=== PATIENT | female | born 1935 | race Caucasian/White ===

== ENCOUNTER → 2016-07-19 | Outpatient (CLI) | payer BC ==
[~2016-07-19] MED LIST: ASPI81TA28 PO; CALCTAB7 PO; CARV6.252 PO; CMD5 PO; LPT/40 PO; MULT-413 PO; MULT-845 PO; SYN100 PO; WARF5TAB7 PO
--- NOTE | 2016-07-19 16:36 | MAMMOGRAPHY REPORT ---
BILATERAL DIGITAL SCREENING MAMMOGRAM WITH CAD: 07/19/2016 CLINICAL HISTORY: Routine screening examination. TECHNIQUE: Bilateral CC and MLO views were obtained. Current study was also evaluated with a Comput er Aided Detection (CAD) system. COMPARISON: Comparison is made to exams dated: 07/14/2014 mammogram, 07/16/2015 mammogram, 07/01/2011 mammogram, 07/12/2013 mammogram, and 06/30/2010 mammogram - [facility]. BREAST COMPOSITION: The tissue of both breasts is heterogeneously dense, which may obscure small ma sses. FINDINGS: There are diffuse bilateral coarse calcifications, more confluent in the left breast. Devante nt punctate microcalcifications are also grouped in each upper outer quadrant, stable compared to pr ior exams. No obvious new mass, architectural distortion or cluster of suspicious microcalcificatio ns is seen. IMPRESSION: ACR BI-RADS CATEGORY 1: NEGATIVE There is no mammographic evidence of malignancy. A 1 year screening mammogram is recommended. The p atient will receive written notification of the results. Approximately 10% of breast cancers are not detected with mammography. A negative mammographic repor t should not delay biopsy if a clinically suggestive mass is present. Renee Bernard M.D. ay/:07/19/2016 16:21:22 Epic Kaleidoscope Analyst: Ade JAFFE)(Moises), [facility] letter sent: Normal 1/2 BI-RADS Code: ACR BI-RADS Category 1: Negative
== END | disposition home or self-care (01) ==
LOC: C.MAMM 11:17
PROVIDERS: ATTEND Internal Medicine
DX: Z12.31 Encounter for screening mammogram for malignant neoplasm of breast (principal)

== ENCOUNTER → 2017-02-02 | Outpatient (CLI) | payer BC ==
[~2017-02-02] MED LIST changes: -MULT-413 PO
[2017-02-02 10:57] LABS: BASO % 0.2 %; BASO ABS # 0.01 K/uL (0-0.2); COMPLETE YES; EOS % 4.4 %; HEMATOCRIT 45.4 % (37-47); IG% 0.3 %; LYMPH % 23.2 %; LYMPH ABS # 1.52 K/uL (1.2-3.4); MEAN CELL VOLUME 93.2 fL (80-100); MEAN CORPUSCULAR HGB CONC 33.3 g/dl (32-36); MEAN PLATELET VOLUME 9.8 fL (7.4-10.4); MONO % 8.9 %; PLATELET COUNT 260 K/uL (130-400); RED BLOOD COUNT 4.87 M/uL (4.2-5.4); WHITE BLOOD COUNT 6.54 K/uL (4.8-10.8)
[2017-02-02 11:21] LABS: ALT/SGPT 30 U/L (12-78); AST/SGOT 23 U/L (15-37); BLOOD UREA NITROGEN 16 mg/dl (7-18); BUN/CREATININE RATIO 17.4 (10-20); CARBON DIOXIDE 31 mmol/L (21-32); CHLORIDE 107 mmol/L (98-107); CHOLESTEROL 136 mg/dl (0-200); CREATININE 0.89 mg/dl (0.60-1.20); GLUCOSE 100 mg/dl (70-99); POTASSIUM 3.9 mmol/L (3.5-5.1); SODIUM 140 mmol/L (136-145)
[2017-02-02 11:32] LABS: ALB/GLOB RATIO 1.1 (0.9-2); ALKALINE PHOSPHATASE 53 U/L (45-117); CHOLESTEROL/HDL RATIO 1.9; HDL CHOLESTEROL 71 mg/dl; LDL CHOLESTEROL CALCULATED 52 mg/dl; TRIGLYCERIDES 67 mg/dl (0-150); VERY LOW DENSITY LIPOPROT CALC 13 mg/dl
--- NOTE | 2017-02-09 13:06 | CODING QUERY MEDICAL NECESSITY ---
SUPPORTING DIAGNOSIS NEEDED A supporting diagnosis is required for the test/procedure performed on this patient in order for us to be reimbursed by the patient's insurance. Please provide a supporting diagnosis for the following test/procedure listed below next to the test name along with your signature. *If there is no additional diagnosis for this patient that would support the following test/procedure please document that below next to the test/procedure. Test(s)/Procedure(s) that require a supporting diagnosis: * VITAMIN D, 25- HYDROXY DIAGNOSIS: Provider Signature: Date: Thank you Bridgett Mitchell [employer] Once completed, please kindly fax back to [phone] For questions please call [phone]
== END | disposition home or self-care (01) ==
LOC: C.LABBC 07:52
PROVIDERS: ATTEND Internal Medicine
DX: M48.04 Spinal stenosis, thoracic region (principal); E55.9 Vitamin D deficiency, unspecified

== ENCOUNTER 2017-03-31 07:11 | Emergency (ER) | payer BC ==
[~2017-03-31] VITALS: Ht 170.2 cm; Wt 71.3 kg
[2017-03-31 07:18] VITALS: TEMP 36.6; Ht 170.2 cm; Wt 71.3 kg
[2017-03-31] MEDS ORDERED: CMD5 PO (07:50)
[2017-03-31] MEDS ORDERED: LEVO100T PO (07:50)
--- NOTE | 2017-03-31 07:58 | EMERGENCY ROOM VISIT NOTE ---
History Report prepared by Todd: My Salazar Under the Supervision of: Dr. Toro Wilcox M.D. First contact with patient: 07:34 Chief Complaint: ABDOMINAL PAIN Stated Complaint: ABD PAIN Nursing Triage Summary: pt c/o abd pain started 3 weeks ago has been getting bilat lower abd pain History of Present Illness The patient is an 81 year old female who presents to the Emergency Room with complaints of persistent lower abdominal pain that began three weeks ago. She currently rates her discomfort as a 7/10 in severity. The patient states that her pain is worsened with eating, noting that over the last few days she has not been eating. She reports normal bowel movements and urination. The patient denies the pain worsening pain with positions. She denies any fever, chills, or vaginal discharge. The patient reports a surgical history of a complete hysterectomy, appendectomy, and cholecystectomy. She states that she saw her PCP yesterday for her recent abdominal pain and states that her PCP wanted her to have a CT scan. The patient states that her PCP needed to get authorization from her insurance to have the CT scan. She states that she was called by her PCP last evening and told to come to the emergency department. The patient denies having any other testing done. She states that she is currently on Warfarin, noting that her last INR level was 2.3. The patient reports a history of Hodgkin's Lymphoma 15 years ago. Source of History: patient Onset: three weeks ago Position: abdomen (lower) Symptom Intensity: 7/10 Timing: other (persistent) Modifying Factors (Worsening): eating Associated Symptoms: No fevers, No chills Review of Systems All systems have been listed, reviewed, and are negative other than those previously mentioned. Please see Additional Medical History Sheet. 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 Surgical Problems: (1) H/O: hysterectomy (2) Hx of cholecystectomy (3) S/P appendectomy Family History Cancer Heart disease Hypertension Social History Smoking Status: Never Smoker Alcohol Use: none Marital Status: Housing Status: lives alone Occupation Status: retired Current/Historical Medications Scheduled Aspirin (Aspirin Ec), 81 MG PO 3XWK Atorvastatin (Lipitor), 40 MG PO DAILY Calcium Carbonate-Vitamin D W/ (Caltrate 600 Plus), 1 TAB PO BID Carvedilol (Coreg), 3.125 MG PO BID Ciprofloxacin Hcl (Cipro), 1 TAB PO BID Levothyroxine Sodium (Synthroid), 100 MCG PO DAILY Metronidazole (Flagyl), 500 MG PO BID Multiple Vitamins W/ Minerals (Centrum Silver Adult 50+), 1 TAB PO DAILY Warfarin Sod (Jantoven), 2.5 MG PO WK Warfarin Sod (Coumadin), 5 MG PO 6XWK Allergies Coded Allergies: No Known Allergies (Verified , 03/31/17) Physical Exam Vital Signs Date Time Temp Pulse Resp B/P (MAP) Pulse Ox O2 Delivery O2 Flow Rate FiO2 03/31/17 11:30 68 18 124/76 95 Room Air 03/31/17 10:31 70 19 137/74 95 Room Air 03/31/17 08:58 63 15 136/63 95 Room Air 03/31/17 07:18 36.6 83 18 118/72 98 Room Air Physical Exam GENERAL: Patient awake, alert, oriented x 3. Patient follows commands. Patient does not appear toxic. Patient is adequately hydrated and well- nourished. SKIN: Slightly erythematous triangular shaped area on right lower quadrant, no pallor, cyanosis or rash HEENT: Normal head, pupils equal, reactive to light and accommodation. LUNGS: Clear to auscultation. No wheezes, no rales, no rhonchi. HEART: No murmurs. No gallops. No rubs ABDOMEN: Generalized tenderness to the suprapubic area, no rebound, no guarding. Slightly erythematous triangular shaped area on right lower quadrant. No masses, no rebound, no hepatomegaly or splenomegaly. EXTREMITIES: No signs of trauma. No pedal or pretibial edema. No calf or thigh tenderness. NEUROLOGIC: Cranial nerves II-XII within normal limits. No gross motor sensory function deficits. Medical Decision & Procedures ER Provider Diagnostic Interpretation: CT results are interpretations by the radiologist and per my review. CT SCAN OF THE ABDOMEN AND PELVIS WITH IV CONTRAST CLINICAL HISTORY: Lower abdominal pain. COMPARISON STUDY: Abdominal CT dated 04/26/2016. TECHNIQUE: Following the IV administration of 94 cc of Optiray 320, CT scan of the abdomen and pelvis is performed from the lung bases to the proximal femora. Images are reviewed in the axial, sagittal, and coronal planes. IV contrast was administered without complication. A dose lowering technique was utilized adhering to the principles of ALARA. CT DOSE: 710.26 mGycm FINDINGS: Lung bases: The heart is top normal in size and there is trace pericardial effusion. Trace pleural effusions are identified. Atelectasis versus scarring is seen at the lung bases. No airspace consolidation is identified typical for pneumonia. Numerous calcifications are present within the breasts. A tiny hiatal hernia is observed. Liver: The contrast-enhanced liver is normal in size, contour, and attenuation. There is no intrahepatic biliary ductal dilatation. The hepatic veins and portal veins are patent. Scattered subcentimeter hepatic hypodensities likely represent cysts but are too small for definitive characterization. These are unchanged from previous. Gallbladder: Surgically absent. Spleen: Normal in size and attenuation. Scattered subcentimeter splenic hypodensities are of indeterminant but doubtful significance. These are unchanged from 04/26/2016. Pancreas: Moderately atrophic and grossly unremarkable. Adrenal glands: Unremarkable. Kidneys: The contrast enhanced kidneys are atrophic and without hydronephrosis. There are bilateral extrarenal pelvises. The kidneys enhance symmetrically. Abdominal vasculature: The abdominal aorta is normal in course and caliber noting advanced atherosclerotic calcification. An infrarenal IVC filter is in place. Bowel: There is moderate sigmoid diverticulosis. There is mild pancolonic inflammation and trace fluid seen adjacent to the sigmoid colon in the pelvis consistent with mild acute diverticulitis. No evidence of abscess is seen. There is no bowel obstruction. The appendix is not identified and reported surgically absent. Peritoneum: There is no intraperitoneal free air or abdominal ascites. Lymphadenopathy: None. Pelvic viscera: The bladder is normal as visualized. The uterus is surgically absent. No adnexal lesion is seen. Skeletal structures: The skeletal structures are osteopenic. There is moderate lumbosacral spondylosis and scoliosis. A large posterior discussed by complex is seen at L3-L4. A 3 cm benign-appearing sclerotic focus in the left iliac wing is unchanged. No lytic or blastic lesions are seen. IMPRESSION: 1. There is moderate sigmoid diverticulosis with evidence of mild acute sigmoid diverticulitis. No intraperitoneal free air is seen and there is no evidence of abscess. 2. Trace pleural effusions. 3. Additional findings as above. Electronically signed by: Jean Claude Tello M.D. 03/31/2017 10:49 AM Dictated Date/Time: 03/31/2017 10:43 AM Laboratory Results 03/31/17 07:30 Red Blood Count 4.99, Mean Corpuscular Volume 92.4, Mean Corpuscular Hemoglobin 31.5, Mean Corpuscular Hemoglobin Concent 34.1, Mean Platelet Volume 9.4, Neutrophils (%) (Auto) 66.0, Lymphocytes (%) (Auto) 22.3, Monocytes (%) (Auto) 8.5, Eosinophils (%) (Auto) 3.0, Basophils (%) (Auto) 0.1, Neutrophils # (Auto) 5.03, Lymphocytes # (Auto) 1.70, Monocytes # (Auto) 0.65, Eosinophils # (Auto) 0.23, Basophils # (Auto) 0.01 03/31/17 07:30 Test 03/31/17 07:30 03/31/17 09:10 White Blood Count 7.63 K/uL (4.8-10.8) Red Blood Count 4.99 M/uL (4.2-5.4) Hemoglobin 15.7 g/dL (12.0-16.0) Hematocrit 46.1 % (37-47) Mean Corpuscular Volume 92.4 fL (80-100) Mean Corpuscular Hemoglobin 31.5 pg (25-34) Mean Corpuscular Hemoglobin Concent 34.1 g/dl (32-36) Platelet Count 239 K/uL (130-400) Mean Platelet Volume 9.4 fL (7.4-10.4) Neutrophils (%) (Auto) 66.0 % Lymphocytes (%) (Auto) 22.3 % Monocytes (%) (Auto) 8.5 % Eosinophils (%) (Auto) 3.0 % Basophils (%) (Auto) 0.1 % Neutrophils # (Auto) 5.03 K/uL (1.4-6.5) Lymphocytes # (Auto) 1.70 K/uL (1.2-3.4) Monocytes # (Auto) 0.65 K/uL (0.11-0.59) Eosinophils # (Auto) 0.23 K/uL (0-0.5) Basophils # (Auto) 0.01 K/uL (0-0.2) RDW Standard Deviation 45.3 fL (36.4-46.3) RDW Coefficient of Variation 13.4 % (11.5-14.5) Immature Granulocyte % (Auto) 0.1 % Immature Granulocyte # (Auto) 0.01 K/uL (0.00-0.02) Prothrombin Time 30.5 SECONDS (9.0-12.0) Prothromb Time International Ratio 2.7 (0.9-1.1) Activated Partial Thromboplast Time 44.0 SECONDS (21.0-31.0) Partial Thromboplastin Ratio 1.7 Anion Gap 7.0 mmol/L (3-11) Est Creatinine Clear Calc Drug Dose 49.6 ml/min Estimated GFR () 71.9 Estimated GFR (Non- 62.1 BUN/Creatinine Ratio 13.0 (10-20) Calcium Level 9.9 mg/dl (8.5-10.1) Total Bilirubin 2.4 mg/dl (0.2-1) Aspartate Amino Transf (AST/SGOT) 17 U/L (15-37) Alanine Aminotransferase (ALT/SGPT) 23 U/L (12-78) Alkaline Phosphatase 61 U/L (45-117) Total Protein 7.9 gm/dl (6.4-8.2) Albumin 3.9 gm/dl (3.4-5.0) Globulin 4.0 gm/dl (2.5-4.0) Albumin/Globulin Ratio 1.0 (0.9-2) Urine Color YELLOW Urine Appearance CLOUDY (CLEAR) Urine pH 6.5 (4.5-7.5) Urine Specific [place] 1.013 (1.000-1.030) Urine Protein NEG (NEG) Urine Glucose (UA) NEG (NEG) Urine Ketones NEG (NEG) Urine Occult Blood 1+ (NEG) Urine Nitrite POS (NEG) Urine Bilirubin NEG (NEG) Urine Urobilinogen NEG (NEG) Urine Leukocyte Esterase LARGE (NEG) Urine WBC (Auto) >30 /hpf (0-5) Urine RBC (Auto) 0-4 /hpf (0-4) Urine Hyaline Casts (Auto) 5-10 /lpf (0-5) Urine Epithelial Cells (Auto) 0-5 /lpf (0-5) Urine Bacteria (Auto) 4+ (NEG) Laboratory results as stated above per my review. ED Course 0734: Past medical records reviewed. The patient was evaluated in room B2. A complete history and physical examination was performed. 1109: I reevaluated the patient and she is resting comfortably. I discussed the exam findings with her and I discussed the treatment plan. She verbalized complete understanding and agreement. She is ready to go home. Medical Decision Nurses notes reviewed. Medical history sheet reviewed. Differential diagnosis includes but is not limited to: constipation, irritable bowel syndrome, neoplastic disease, diverticulitis, bowel obstruction. Multiple labs, urinalysis and CT were obtained. Please see above. The patient appears to have a urinary tract infection which may be the major reason for her pain. The patient also appears to have diverticulitis. In light of the above I will treat her with Flagyl and ciprofloxacin. The patient was encouraged to follow-up with her family physician within the next 7 days. She is to return here sooner if she is feeling worse. The patient was offered pain medication but declined. Medication Reconcilliation Current Medication List: was personally reviewed by me Blood Pressure Screening Patient's blood pressure: Normal blood pressure Blood pressure disposition: Did not require urgent referral Impression Primary Impression: Urinary tract infection Additional Impression: Diverticulitis Scribe Attestation The scribe's documentation has been prepared under my direction and personally reviewed by me in its entirety. I confirm that the note above accurately reflects all work, treatment, procedures, and medical decision making performed by me. Departure Information Dispostion Home / Self-Care Prescriptions Ciprofloxacin Hcl (CIPRO) 500 Mg Tab 1 TAB PO BID for 10 Days, #20 TAB Prov: Toro Wilcox M.D. 03/31/17 Metronidazole (Flagyl) 500 Mg Tab 500 MG PO BID, #20 TAB Prov: Toro Wilcox M.D. 03/31/17 Referrals Jason Spangler M.D. (PCP) Forms Call Back Authorization, HOME CARE DOCUMENTATION FORM, IMPORTANT VISIT INFORMATION Patient Instructions Diverticulitis Dc, ED Infec Bladder Female Ch, [facility] Additional Instructions 500 mg of ciprofloxacin twice a day for 10 days. 500 mg of Flagyl twice a day for 10 days. Drink extra fluids. Follow-up with your family physician within the next 7 days. Return here sooner if your symptoms are getting worse. Problem Qualifiers
[2017-03-31 08:03] LABS: BASO % 0.1 %; BASO ABS # 0.01 K/uL (0-0.2); COMPLETE YES; HEMATOCRIT 46.1 % (37-47); IG% 0.1 %; LYMPH % 22.3 %; MEAN CELL VOLUME 92.4 fL (80-100); MEAN CORPUSCULAR HEMOGLOBIN 31.5 pg (25-34); MEAN CORPUSCULAR HGB CONC 34.1 g/dl (32-36); MEAN PLATELET VOLUME 9.4 fL (7.4-10.4); MONO % 8.5 %; PLATELET COUNT 239 K/uL (130-400); RED BLOOD COUNT 4.99 M/uL (4.2-5.4); WHITE BLOOD COUNT 7.63 K/uL (4.8-10.8)
[2017-03-31 08:08] LABS: INR 2.7 (0.9-1.1); PARTIAL THROMBOPLASTIN RATIO 1.7; PROTHROMBIN TIME (PATIENT) 30.5 SECONDS (9.0-12.0)
[2017-03-31 08:17] LABS: CALCIUM 9.9 mg/dl (8.5-10.1); CREATININE 0.88 mg/dl (0.60-1.20); POTASSIUM 3.7 mmol/L (3.5-5.1)
[2017-03-31] MEDS ORDERED: OPTIRAY 320 IV PRN (08:30)
[2017-03-31 09:22] LABS: URINE APPEARANCE CLOUDY (CLEAR); URINE BILIRUBIN NEG (NEG); URINE COLOR YELLOW; URINE EPITHELIAL CELL AUTO 0-5 /lpf (0-5); URINE NITRITE POS (NEG); URINE PH 6.5 (4.5-7.5); URINE SPECIFIC GRAVITY 1.013 (1.000-1.030); UROBILINOGEN NEG (NEG); ZZUR CULT IF INDIC CLEAN CATCH YES
[2017-03-31 09:23] LABS: MANUAL MICROSCOPIC REQUIRED? NO; REVIEW REQ? NO
--- NOTE | 2017-03-31 10:50 | DIAGNOSTIC IMAGING REPORT ---
CT SCAN OF THE ABDOMEN AND PELVIS WITH IV CONTRAST CLINICAL HISTORY: Lower abdominal pain. COMPARISON STUDY: Abdominal CT dated 04/26/2016. TECHNIQUE: Following the IV administration of 94 cc of Optiray 320, CT scan of the abdomen and pelvis is performed from the lung bases to the proximal femora. Images are reviewed in the axial, sagittal, and coronal planes. IV contrast was administered without complication. A dose lowering technique was utilized adhering to the principles of ALARA. CT DOSE: 710.26 mGycm FINDINGS: Lung bases: The heart is top normal in size and there is trace pericardial effusion. Trace pleural effusions are identified. Atelectasis versus scarring is seen at the lung bases. No airspace consolidation is identified typical for pneumonia. Numerous calcifications are present within the breasts. A tiny hiatal hernia is observed. Liver: The contrast-enhanced liver is normal in size, contour, and attenuation. There is no intrahepatic biliary ductal dilatation. The hepatic veins and portal veins are patent. Scattered subcentimeter hepatic hypodensities likely represent cysts but are too small for definitive characterization. These are unchanged from previous. Gallbladder: Surgically absent. Spleen: Normal in size and attenuation. Scattered subcentimeter splenic hypodensities are of indeterminant but doubtful significance. These are unchanged from 04/26/2016. Pancreas: Moderately atrophic and grossly unremarkable. Adrenal glands: Unremarkable. Kidneys: The contrast enhanced kidneys are atrophic and without hydronephrosis. There are bilateral extrarenal pelvises. The kidneys enhance symmetrically. Abdominal vasculature: The abdominal aorta is normal in course and caliber noting advanced atherosclerotic calcification. An infrarenal IVC filter is in place. Bowel: There is moderate sigmoid diverticulosis. There is mild pancolonic inflammation and trace fluid seen adjacent to the sigmoid colon in the pelvis consistent with mild acute diverticulitis. No evidence of abscess is seen. There is no bowel obstruction. The appendix is not identified and reported surgically absent. Peritoneum: There is no intraperitoneal free air or abdominal ascites. Lymphadenopathy: None. Pelvic viscera: The bladder is normal as visualized. The uterus is surgically absent. No adnexal lesion is seen. Skeletal structures: The skeletal structures are osteopenic. There is moderate lumbosacral spondylosis and scoliosis. A large posterior discussed by complex is seen at L3-L4. A 3 cm benign-appearing sclerotic focus in the left iliac wing is unchanged. No lytic or blastic lesions are seen. IMPRESSION: 1. There is moderate sigmoid diverticulosis with evidence of mild acute sigmoid diverticulitis. No intraperitoneal free air is seen and there is no evidence of abscess. 2. Trace pleural effusions. 3. Additional findings as above. Electronically signed by: Jean Claude Tello M.D. 03/31/2017 10:49 AM Dictated Date/Time: 03/31/2017 10:43 AM
[2017-03-31] MEDS ORDERED: CIPR-255 PO (11:14)
[2017-03-31] MEDS ORDERED: METR-163 PO (11:14)
[2017-03-31 11:30] VITALS: BP 124/76; PULSE 68; O2SAT 95
== END 2017-03-31 11:40 | disposition home or self-care (01) ==
LOC: C.EDB 07:12
DX: N39.0 Urinary tract infection, site not specified (principal); K57.32 Diverticulitis of large intestine without perforation or abscess without bleeding; K57.30 Diverticulosis of large intestine without perforation or abscess without bleeding; E11.9 Type 2 diabetes mellitus without complications; I10 Essential (primary) hypertension; E03.9 Hypothyroidism, unspecified; E78.5 Hyperlipidemia, unspecified; I71.4 Abdominal aortic aneurysm, without rupture; I25.10 Atherosclerotic heart disease of native coronary artery without angina pectoris; Z79.82 Long term (current) use of aspirin; Z79.01 Long term (current) use of anticoagulants; Z90.710 Acquired absence of both cervix and uterus; Z90.89 Acquired absence of other organs; Z90.49 Acquired absence of other specified parts of digestive tract; Z85.71 Personal history of Hodgkin lymphoma; Z86.711 Personal history of pulmonary embolism; Z82.49 Family history of ischemic heart disease and other diseases of the circulatory system

== ENCOUNTER → 2017-07-20 | Outpatient (CLI) | payer BC ==
[~2017-07-20] MED LIST changes: +LEVO100T PO; -SYN100 PO
--- NOTE | 2017-07-20 15:19 | MAMMOGRAPHY REPORT ---
BILATERAL DIGITAL SCREENING MAMMOGRAM TOMOSYNTHESIS WITH CAD: 07/20/2017 CLINICAL HISTORY: Routine screening. Patient has no complaints. TECHNIQUE: Breast tomosynthesis in addition to standard 2D mammography was performed. Current study was also evaluated with a Computer Aided Detection (CAD) system. COMPARISON: Comparison is made to exams dated: 07/19/2016 mammogram, 07/16/2015 mammogram, 07/14/2014 m ammogram, 07/12/2013 mammogram, 07/10/2012 mammogram, and 07/01/2011 mammogram - [facility] enter. BREAST COMPOSITION: The tissue of both breasts is heterogeneously dense, which may obscure small mas ses. FINDINGS: No suspicious masses, calcifications, or areas of architectural distortion are noted in ei ther breast. There has been no significant interval change compared to prior exams. Scattered bilater al benign-appearing calcifications are not significantly changed. A linear scar marker denotes a sca r on the right superior breast. IMPRESSION: ACR BI-RADS CATEGORY 2: BENIGN There is no mammographic evidence of malignancy. A 1 year screening mammogram is recommended. The pa tient will receive written notification of the results. Approximately 10% of breast cancers are not detected with mammography. A negative mammographic report should not delay biopsy if a clinically suggestive mass is present. Tianna Jones M.D. /:07/20/2017 12:39:18 [employer]mat Cdl Driver: Ange Curran RT(R)(M), [facility] letter sent: Normal 1/2 BI-RADS Code: ACR BI-RADS Category 2: Benign
== END | disposition home or self-care (01) ==
LOC: C.MAMM 10:28
PROVIDERS: ATTEND Internal Medicine
DX: Z12.31 Encounter for screening mammogram for malignant neoplasm of breast (principal)

== ENCOUNTER 2020-10-04 19:18 | Observation (INO) ==
--- NOTE | 2020-10-04 19:57 | Emergency Department Note ---
History of Present Illness General Chief complaint: Confusion Stated complaint: CONFUSION Time Seen by Provider: 10/04/20 19:30 Source: patient Mode of arrival: ambulatory Limitations: no limitations History of Present Illness Provider complaint: difficulty speaking, confused, uncoordinated yesterday Onset (ago): day(s) 1 This is an 85-year-old female presents the emergency department with concern for events yesterday. She states yesterday she became aware in the morning that she could not speak, cannot remember how to perform simple tasks such as using a spoon or opening the cabinets, was slightly dizzy, and had a left-sided headache. Patient states because she could not speak and could not remember how to use certain daily items she could not call for help or contact her daughter, she does live alone. Patient does take blood thinners due to history of recurrent blood clots. She has had prior traumatic intracranial hemorrhage status post surgery. She denies any recent fever/chills, or other recent illness. No other recent change in medications. She states her last INR was 2.1. Patient states when she woke up today she felt back to normal, and contacted her daughter. Patient states she does have a remote history of a TIA that lasted only several minutes in which she could not speak. Daughter confirms at this time that patient is acting and speaking normally. Pt seen during a time of high acuity and national emergency pandemic while wearing PPE. Home Medications Medication Instructions Recorded Confirmed Type calcium carbonate 600 mg(1,500 1 tab PO DAILY@1200 tab 02/14/19 10/04/20 History mg)-vitamin D3 800 unit chewable tablet jsaykmpo-jjsiijvd-pcmma acid 500 1 tab PO DAILY@1200 tab 02/14/19 10/04/20 History mcg-lutein 5 mg-zeaxanth 1 mg tablet multivitamin 1 tab PO DAILY@1200 10/31/19 10/04/20 History nitroglycerin 0.2 mg/hr 1 patch TD Q24H #90 ea 03/30/20 10/04/20 Rx transdermal 24 hour patch warfarin 5 mg tablet See Rx Instructions PO UD #90 tab 06/23/20 10/04/20 Rx atorvastatin 40 mg PO HS 06/26/20 10/04/20 History levothyroxine 100 mcg PO HS 06/26/20 10/04/20 History alendronate 70 mg tablet 70 mg PO WK tab 08/18/20 10/04/20 History carvedilol 6.25 mg tablet 3.125 mg PO BID #90 tab 09/17/20 10/04/20 Rx aspirin 81 mg PO QAM #0 tab 10/05/20 10/04/20 Rx cephalexin 500 mg PO QID 3 Days #12 tab 10/05/20 Rx Allergies Allergy/AdvReac Type Severity Reaction Status Date / Time No Known Drug Allergies Allergy Verified 10/04/20 21:02 Past Med/Surg History Medical History (Updated 10/06/20 @ 11:17 by Georgina Gallardo DO) Anticoagulated on warfarin Bilateral primary osteoarthritis of knee Coronary atherosclerosis of [place] coronary vessel History of non-Hodgkin's lymphoma HTN (hypertension) Hyperlipidemia Hypothyroidism Mitral regurgitation Peripheral neuropathy Presence of IVC filter Primary cutaneous T-cell lymphoma Primary hypercoagulable state Spinal stenosis of lumbar region Syncope Thoracic spinal stenosis Surgical History H/O: hysterectomy History of breast surgery History of colonoscopy History of tonsillectomy and adenoidectomy Hx of appendectomy Hx of cholecystectomy Family History Father Cancer Myocardial infarction Prostate cancer Heart disease Brother Prostate cancer Myocardial infarction Heart disease Other Coronary heart disease Denies family history of Ovarian cancer Breast cancer Lung cancer Colorectal cancer Social History Smoking Status: Never smoker Second Hand Exposure: No; Hx Alcohol Use: No Hx Substance Use: No Preferred Language: Slovenian Communication Ability: Effective Visual Impairment: Limited Hearing Ability: Normal Design Lead Required: No Beliefs That Will Affect Care: None marital status: / Current Living Situation: Alone current occupational status: retired How many Children do You have: 2 Feels Safe at Home: Yes Childhood Exposure to Second-Hand Smoke: Yes caffeine: No Dental Care, Regularly: Yes Physical Activity Frequency: 3-4 Times per Week Physical Activity Frequency Comment: due to Covid Seatbelt Use: always Sunscreen Use: Yes Assistive Devices: None Review of Systems See HPI for pertinent positives & negatives. and A total of 10 systems reviewed and were otherwise negative Physical Exam Vital Signs Vital Signs - 24 hr 10/04/20 19:20 10/04/20 19:22 10/04/20 19:51 Temperature 36.3 C L Temperature Source Temporal Artery Scan Pulse Rate 93 H Pulse Rate from SpO2 Sensor Respiratory Rate 18 Respiratory Effort / Characteristics Non-Labored Spontaneous Non-Labored Spontaneous Respiratory Depth Normal Normal Respiratory Pattern Regular Blood Pressure 128/76 Blood Pressure Mean 93 Pulse Oximetry 99 Oxygen Delivery Method Room Air Room Air Sepsis Recent Fever Within 48 Hours No Sepsis New/Unexplained Change in Mental Status N/A Sepsis Action Taken by Nursing No Action Required 10/04/20 20:17 10/04/20 23:00 10/04/20 23:31 Temperature Temperature Source Pulse Rate 77 70 75 Pulse Rate from SpO2 Sensor 77 71 74 Respiratory Rate 23 21 Respiratory Effort / Characteristics Respiratory Depth Respiratory Pattern Blood Pressure 133/87 122/65 131/71 Blood Pressure Mean 102 84 91 Pulse Oximetry 97 99 98 Oxygen Delivery Method Room Air Room Air Room Air Sepsis Recent Fever Within 48 Hours Sepsis New/Unexplained Change in Mental Status Sepsis Action Taken by Nursing 10/05/20 00:00 10/05/20 00:30 Temperature Temperature Source Pulse Rate 69 73 Pulse Rate from SpO2 Sensor 70 73 Respiratory Rate 19 16 Respiratory Effort / Characteristics Respiratory Depth Respiratory Pattern Blood Pressure 136/73 139/76 Blood Pressure Mean 94 97 Pulse Oximetry 98 99 Oxygen Delivery Method Room Air Room Air Sepsis Recent Fever Within 48 Hours Sepsis New/Unexplained Change in Mental Status Sepsis Action Taken by Nursing GENERAL: alert, well appearing, well nourished, no distress, non-toxic EYE EXAM: normal conjunctiva, PERRL and EOM's grossly intact OROPHARYNX: no exudate, no erythema, lips, buccal mucosa, and tongue normal and mucous membranes are moist NECK: supple, no nuchal rigidity, no adenopathy, non-tender LUNGS: Clear to auscultation. Normal chest wall mechanics, no w/r/r HEART: no murmurs, S1 normal and S2 normal ABDOMEN: abdomen soft, non-tender, normo-active bowel sounds, no masses, no rebound or guarding. BACK: Back is symmetrical on inspection and there is no deformity, no midline tenderness, no CVA tenderness. SKIN: no rashes and no bruising UPPER EXTREMITIES: upper extremities are grossly normal. FROM, nml pulses b/l. LOWER EXTREMITIES: No pitting edema. FROM, nml pulses b/l. NEURO EXAM: Normal sensorium, cranial nerves II-XII grossly intact, normal s peech, no gross weakness of arms, no gross weakness of legs. Gross sensation intact. NIHSS 0 Course Administered Medications Discontinued Medications Aspirin (Aspirin 81 Mg Ectab) 81 mg PO MOWEFR@1200 EDISON Stop: 11/04/20 11:59 Last Admin: 10/05/20 12:48 Dose: 81 mg Documented by: [id number] Carvedilol (Carvedilol 3.125 Mg Tab) 3.125 mg PO BID EDISON Stop: 11/04/20 02:22 Last Admin: 10/05/20 08:33 Dose: 3.125 mg Documented by: [id number] Admin: 10/05/20 04:06 Dose: 3.125 mg Documented by: [id number] Enoxaparin Sodium (Enoxaparin Inj 30 Mg/0.3 Ml Syr) 30 mg SQ NOW ONE Stop: 10/05/20 12:11 Last Admin: 10/05/20 12:48 Dose: Not Given Documented by: [id number] Sodium Chloride (Nss 1000ml) 1,000 mls @ 125 mls/hr IV .Q8H EDISON Stop: 11/03/20 19:59 Last Infusion: 10/05/20 02:26 Dose: 0 mls/hr Documented by: [id number] Admin: 10/04/20 21:10 Dose: 125 mls/hr Documented by: [id number] Ceftriaxone Sodium (Rocephin) 1,000 mg in 50 mls @ 100 mls/hr IV NOW STA Stop: 10/04/20 23:50 Last Infusion: 10/05/20 00:47 Dose: 0 mls/hr Documented by: [id number] Admin: 10/05/20 00:02 Dose: 100 mls/hr Documented by: [id number] Potassium Chloride/Sodium Chloride (Normal Saline W/20 Meq Kcl) 20 meq in 1,000 mls @ 80 mls/hr IV .[id number] EDISON Stop: 10/05/20 15:44 Last Infusion: 10/05/20 16:18 Dose: 0 mls/hr Documented by: [id number] Infusion: 10/05/20 08:00 Dose: 80 mls/hr Documented by: [id number] Infusion: 10/05/20 07:12 Dose: 0 mls/hr Documented by: [id number] Admin: 10/05/20 04:05 Dose: 80 mls/hr Documented by: [id number] Ceftriaxone Sodium 1,000 mg/ (Dextrose) 50 mls @ 100 mls/hr IV Q24H EDISON; Protocol Stop: 10/14/20 19:59 Last Admin: 10/05/20 16:16 Dose: 100 mls/hr Documented by: [id number] Ioversol (Optiray 350 500ml) 117 ml IV ONCE ONE Stop: 10/04/20 22:05 Last Admin: 10/04/20 22:04 Dose: 117 ml Documented by: [id number] Multivitamins (Multivitamin Tab) 1 tab PO DAILY@1200 EDISON Stop: 11/04/20 11:59 Last Admin: 10/05/20 12:48 Dose: 1 tab Documented by: [id number] Multivitamins/Minerals (Cerovite Adv Formula Tab) 1 tab PO DAILY@1200 EDISON Stop: 11/04/20 11:59 Last Admin: 10/05/20 12:48 Dose: 1 tab Documented by: [id number] Multivitamins/Minerals (Calcium 600mg + Vit D 400 Iu Tab) 1 tab PO DAILY@1200 EDISON Stop: 11/04/20 11:59 Last Admin: 10/05/20 12:48 Dose: 1 tab Documented by: [id number] Nitroglycerin (Nitroglycerin 0.2 Mg/Hr Patch) 1 patch TD Q24H EDISON Stop: 11/04/20 08:59 Last Admin: 10/05/20 08:33 Dose: 1 patch Documented by: [id number] Warfarin Sodium (Warfarin Sod 5 Mg Tab) 5 mg PO MoTuThFrSa@1600 EDISON Stop: 11/04/20 15:59 Last Admin: 10/05/20 16:18 Dose: 5 mg Documented by: [id number] Medical Decision Making Differential Diagnosis Differential Diagnosis includes but is not limited to ischemic Stroke, hemorrhagic stroke, bells palsy, mass, neoplasm, migraine headache, seizure, sub arachnoid hemorrhage, TIA, and transient global amnesia. Medical Records Attestation: I reviewed the patient's medical records. Home Medications Current Medication List: was personally reviewed by me Laboratory Data Attestation: I reviewed the patient's lab results. Result diagrams: 10/04/20 20:49 10/05/20 16:09 Lab Results 10/04/20 10/04/20 10/04/20 Range/Units 20:49 20:49 20:49 WBC 8.52 (4.8-10.8) K/uL RBC 4.79 (4.2-5.4) M/uL Hgb 15.3 (12.0-16.0) g/dL Hct 44.7 (37-47) % MCV 93.3 (80-100) fL MCH 31.9 (25-34) pg MCHC 34.2 (32-36) g/dL RDW Std Deviation 47.4 H (36.4-46.3) fL RDW Coeff of Jhonathan 13.8 (11.5-14.5) % Plt Count 259 (130-400) K/uL MPV 9.7 (7.4-10.4) fL Immature Gran % (Auto) 0.2 % Neut % (Auto) 63.4 % Lymph % (Auto) 21.8 % [place] % (Auto) 14.0 % Eos % (Auto) 0.5 % Baso % (Auto) 0.1 % Neut # (Auto) 5.40 (1.4-6.5) K/uL Lymph # (Auto) 1.86 (1.2-3.4) K/uL [place] # (Auto) 1.19 H (0.11-0.59) K/uL Eos # (Auto) 0.04 (0-0.5) K/uL Baso # (Auto) 0.01 (0-0.2) K/uL Immature Gran # (Auto) 0.02 (0.00-0.02) K/uL PT 18.2 H (9.0-12.0) Seconds INR 1.9 H (0.9-1.1) Sodium 135 L (136-145) mmol/L Potassium 3.9 (3.5-5.1) mmol/L Chloride 102 (98-107) mmol/L Carbon Dioxide 26 (21-32) mmol/L Anion Gap 7.0 (3-11) BUN 23 H (7-18) mg/dl Creatinine 0.86 (0.6-1.2) mg/dl Est Cr Clr Drug Dosing 43.8 ml/min Est GFR ( Amer) 71.9 ml/min Est GFR (Non-Af Amer) 62.0 ml/min BUN/Creatinine Ratio 26.2 H (10-20) Glucose 118 H (70-99) mg/dl Calcium 9.0 (8.5-10.1) mg/dl Magnesium 2.1 (1.8-2.4) mg/dl Total Bilirubin 3.0 H (0.2-1) mg/dl AST 20 (15-37) U/L ALT 20 (12-78) U/L Alkaline Phosphatase 51 (45-117) U/L Troponin I < 0.015 (0-0.045) ng/ml NT-Pro-B Natriuret Pep 677 (0-1800) pg/ml Total Protein 6.8 (6.4-8.2) gm/dl Albumin 3.6 (3.4-5.0) gm/dl Globulin 3.2 (2.5-4.0) gm/dl Albumin/Globulin Ratio 1.1 (0.9-2) Lipase 159 (73-393) U/L TSH 1.460 (0.300-4.500) uIu/ml Urine Color Urine Appearance (Clear) Urine pH (4.5-7.5) Ur Specific [place] (1.000-1.030) Urine Protein (Negative) Urine Glucose (UA) (Negative) Urine Ketones (Negative) Urine Blood (Negative) Urine Nitrite (Negative) Urine Bilirubin (Negative) Urine Urobilinogen (Negative) Ur Leukocyte Esterase (Negative) Urine WBC (Auto) (0-5) /hpf Urine RBC (Auto) (0-4) /hpf U Hyaline Cast (Auto) (0-5) /lpf U Epithel Cells (Auto) (0-5) /lpf Urine Bacteria (Auto) (Negative) Ur Renal Epithelial Cell COVID-19 Eval Order SARS-CoV-2 (PCR) (Negative) 10/04/20 10/04/20 10/04/20 Range/Units 21:33 23:25 23:25 WBC (4.8-10.8) K/uL RBC (4.2-5.4) M/uL Hgb (12.0-16.0) g/dL Hct (37-47) % MCV (80-100) fL MCH (25-34) pg MCHC (32-36) g/dL RDW Std Deviation (36.4-46.3) fL RDW Coeff of Jhonathan (11.5-14.5) % Plt Count (130-400) K/uL MPV (7.4-10.4) fL Immature Gran % (Auto) % Neut % (Auto) % Lymph % (Auto) % [place] % (Auto) % Eos % (Auto) % Baso % (Auto) % Neut # (Auto) (1.4-6.5) K/uL Lymph # (Auto) (1.2-3.4) K/uL [place] # (Auto) (0.11-0.59) K/uL Eos # (Auto) (0-0.5) K/uL Baso # (Auto) (0-0.2) K/uL Immature Gran # (Auto) (0.00-0.02) K/uL PT (9.0-12.0) Seconds INR (0.9-1.1) Sodium (136-145) mmol/L Potassium (3.5-5.1) mmol/L Chloride (98-107) mmol/L Carbon Dioxide (21-32) mmol/L Anion Gap (3-11) BUN (7-18) mg/dl Creatinine (0.6-1.2) mg/dl Est Cr Clr Drug Dosing ml/min Est GFR ( Amer) ml/min Est GFR (Non-Af Amer) ml/min BUN/Creatinine Ratio (10-20) Glucose (70-99) mg/dl Calcium (8.5-10.1) mg/dl Magnesium (1.8-2.4) mg/dl Total Bilirubin (0.2-1) mg/dl AST (15-37) U/L ALT (12-78) U/L Alkaline Phosphatase (45-117) U/L Troponin I (0-0.045) ng/ml NT-Pro-B Natriuret Pep (0-1800) pg/ml Total Protein (6.4-8.2) gm/dl Albumin (3.4-5.0) gm/dl Globulin (2.5-4.0) gm/dl Albumin/Globulin Ratio (0.9-2) Lipase (73-393) U/L TSH (0.300-4.500) uIu/ml Urine Color Dark Yellow Urine Appearance Clear (Clear) Urine pH 6.0 (4.5-7.5) Ur Specific [place] 1.023 (1.000-1.030) Urine Protein Trace H (Negative) Urine Glucose (UA) Negative (Negative) Urine Ketones 1+ H (Negative) Urine Blood Trace H (Negative) Urine Nitrite Negative (Negative) Urine Bilirubin Negative (Negative) Urine Urobilinogen Negative (Negative) Ur Leukocyte Esterase 2+ H (Negative) Urine WBC (Auto) >30 H (0-5) /hpf Urine RBC (Auto) 10-30 H (0-4) /hpf U Hyaline Cast (Auto) 10-30 H (0-5) /lpf U Epithel Cells (Auto) >30 H (0-5) /lpf Urine Bacteria (Auto) Negative (Negative) Ur Renal Epithelial Cell Not Reportable COVID-19 Eval Order Covid19 at [facility] SARS-CoV-2 (PCR) NEGATIVE (Negative) Imaging Data Radiologist's Impression: CT head: No intracranial hemorrhage, mass-effect, or edema. 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 Radiologist: Tyler Alicea MD CTA head: No arterial occlusion, high-grade stenosis, aneurysm, or dissection. Radiologist: Tyler Alicea MD CTA neck: No arterial occlusion, high-grade stenosis, aneurysm, or dissection. Radiologist: Tyler Alicea MD [facility] Narrative Patient presents due to concern for possible CVA/TIA. Pt with prior TIA per her report. CT imaging and labs here reassuring. UA suggestive of evolving UTI however > 30 epi suggests suboptimal specimen. GIven age and risk, will cover with antibiotics and wait for culture. Pt stated that with her symptoms yesterday, she didn't eat/drink anything. Given concern for etiology of symptoms, need for additional neuro evaluation, discussed disposition with pt and daughter. Pt verbalized understanding and was in agreement. CAse discussed with hospitalist. Pt had no new or evolving symptoms while in the ER. VS stable throughout. An order was placed for continuous cardiac monitoring. The monitor shows a rate of _80_ with _normals sinus__ rhythm. Impression & Plan Altered mental status, Stroke-like symptoms, UTI (urinary tract infection) Discharge Plan Visit Data Chief Complaint: Confusion Stated Complaint: CONFUSION ED Provider: Georgina Gallardo Discharge Problem: Altered mental status, Stroke-like symptoms, UTI (urinary tract infection) Patient Disposition: Admitted As Inpatient Discharge Instructions Interventions: ED Discharge Assessment Last Done: 10/05/20 01:59 Discharge Problem: Altered mental status Qualifiers: Altered mental status type: transient alteration of awareness Qualified Code(s): R40.4 - Transient alteration of awareness UTI (urinary tract infection) Qualifiers: Urinary tract infection type: acute cystitis Hematuria presence: with hematuria Qualified Code(s): N30.01 - Acute cystitis with hematuria
[2020-10-04] MEDS ORDERED: SODIUM CHLORIDE 0.9% 1000ML 1,000 ML IV SCH (20:00)
[2020-10-04 20:59] LABS: Basophils # (auto) 0.01 K/uL (0-0.2); Basophils % (auto) 0.1 %; Eosinophils # (auto) 0.04 K/uL (0-0.5); Eosinophils % (auto) 0.5 %; Hematocrit (blood only) 44.7 % (37-47); Hemoglobin 15.3 g/dL (12.0-16.0); Immature Granulocytes # (auto) 0.02 K/uL (0.00-0.02); Immature Granulocytes % (auto) 0.2 %; Lymphocytes # (auto) 1.86 K/uL (1.2-3.4); Lymphocytes % (auto) 21.8 %; Mean Corpuscular Hemoglobin 31.9 pg (25-34); Mean Corpuscular Hgb Conc 34.2 g/dL (32-36); Mean Corpuscular Volume 93.3 fL (80-100); Mean Platelet Volume 9.7 fL (7.4-10.4); Monocytes # (auto) 1.19 K/uL (0.11-0.59); Neutrophils % (auto) 63.4 %; Platelet Count 259 K/uL (130-400); RDW Coefficient of Variation 13.8 % (11.5-14.5); RDW Standard Deviation 47.4 fL (36.4-46.3); Red Blood Count 4.79 M/uL (4.2-5.4); White Blood Count 8.52 K/uL (4.8-10.8)
[2020-10-04 21:10] LABS: INR 1.9 (0.9-1.1); Prothrombin Time 18.2 Seconds (9.0-12.0)
[2020-10-04 21:15] LABS: Alanine Aminotransferase 20 U/L (12-78); Albumin Level 3.6 gm/dl (3.4-5.0); Aspartate Aminotransferase 20 U/L (15-37); BUN Creatinine Ratio 26.2 (10-20); Blood Urea Nitrogen 23 mg/dl (7-18); Carbon Dioxide 26 mmol/L (21-32); Chloride 102 mmol/L (98-107); Creatinine Clr Calc Pharmacy 43.8 ml/min; Est GFR (African American) 71.9 ml/min; Glucose 118 mg/dl (70-99); Lipase 159 U/L (73-393); Magnesium 2.1 mg/dl (1.8-2.4); Potassium 3.9 mmol/L (3.5-5.1); Sodium 135 mmol/L (136-145)
[2020-10-04 21:25] LABS: Albumin Globulin Ratio 1.1 (0.9-2); Alkaline Phosphatase 51 U/L (45-117); Globulin 3.2 gm/dl (2.5-4.0); NT Pro B Type Natriuretic Pept 677 pg/ml (0-1800); Total Protein 6.8 gm/dl (6.4-8.2); Troponin I < 0.015 ng/ml (0-0.045)
[2020-10-04 21:43] LABS: Appearance Urine Clear (Clear); Bacteria Urine Automated Negative (Negative); Bilirubin Urine Negative (Negative); Blood Urine Trace (Negative); Color Urine Dark Yellow; Epithelial Cell Urine Auto >30 /lpf (0-5); Glucose Urine UA Negative (Negative); Ketones Urine 1+ (Negative); Leukocyte Esterase Urine 2+ (Negative); Nitrite Urine Negative (Negative); Protein Urine Trace (Negative); Specific Gravity Urine 1.023 (1.000-1.030); Urobilinogen Urine Negative (Negative); WBC Urine Automated >30 /hpf (0-5)
[2020-10-04] MEDS ORDERED: OPTIRAY 350 500ml IV ONE (22:04)
[2020-10-04] MEDS ORDERED: cefTRIAXone SODIUM 1,000 MG/50 ML BAG IV STA (23:21)
--- NOTE | 2020-10-05 00:52 | History & Physical Report ---
Date of Service October 05, 2020 Assessment & Plan (1) Stroke-like symptoms: Strokelike symptoms- Unknown duration, but have all resolved at this time. Patient had difficulty with speech, ambulatory function and ability to carry out routine tasks. CT of head, CTA head and neck all negative Order MRI of brain without contrast Patient had recently traveled to [place] by herself, and is unclear whether she may have had some dehydration associated with UTI as a potential aggravating factor Perform neuro checks, but will not activate entire stroke without TPA order set protocol as we are well beyond the 24-hour origin of symptoms Continue aspirin Present on Admission?: Yes (2) UTI (urinary tract infection): Follow urine culture and sensitivity Ceftriaxone 1 g IV daily Present on Admission?: Yes (3) Coronary atherosclerosis of pamunkey coronary vessel: CAD/hypertension- Continue aspirin, carvedilol Present on Admission?: Yes (4) HTN (hypertension): See above Present on Admission?: Yes (5) Hyperlipidemia: Continue atorvastatin. Check a fasting lipid panel Present on Admission?: Yes (6) Hypothyroidism: Continue levothyroxine 100 mcg daily Present on Admission?: Yes (7) Pulmonary embolism: History of pulmonary embolism/presence of IVC filter/primary hypercoagulable state- Chronic anticoagulation with warfarin to continue. Checking daily PT/INRs Present on Admission?: Yes (8) Anticoagulated on warfarin: See above Present on Admission?: Yes (9) Presence of IVC filter: See above Present on Admission?: Yes (10) Primary hypercoagulable state: See above Present on Admission?: Yes History of Present Illness Chief Complaint: The patient presents to the emergency department with complaint of confusion and inability to perform simple everyday tasks while she was by herself at her second home in [place] yesterday. Primary Care Provider: Jason Spangler MD The patient is an 85-year-old female with a past medical history including lumbar spinal stenosis and radiculopathy, abdominal aortic aneurysm, atrial septal aneurysm, chronic osteoarthritis, colonic diverticulosis, right bundle branch block, vitamin D deficiency, chronic anticoagulation with warfarin, CAD of pamunkey coronary vessel, history of NHL, hyperlipidemia, hypertension, hypothyroidism, peripheral neuropathy, status post IVC filter placement, primary cutaneous T-cell lymphoma, and primary hypercoagulable state. She reports that yesterday she was at her second home in [place], where she drove there by herself, and became confused, could not speak and was unable to perform basic functioning. She reports that when she awoke today, her symptoms had improved, and she called her daughter, who came to pick her up, and brought her back to the area. In the emergency department, the patient's daughter confirms that the patient appears to be back to her baseline Allergies Allergy/AdvReac Type Severity Reaction Status Date / Time No Known Drug Allergies Allergy Verified 10/04/20 21:02 Home Medications Medication Instructions Recorded Confirmed Type aspirin 81 mg tablet,delayed 81 mg PO MOWEFR@1200 tab 02/14/19 10/04/20 History release calcium carbonate 600 mg(1,500 1 tab PO DAILY@1200 tab 02/14/19 10/04/20 Hi story mg)-vitamin D3 800 unit chewable tablet wvqxfwpc-nbwhslzf-cxdsg acid 500 1 tab PO DAILY@1200 tab 02/14/19 10/04/20 History mcg-lutein 5 mg-zeaxanth 1 mg tablet multivitamin 1 tab PO DAILY@1200 10/31/19 10/04/20 History nitroglycerin 0.2 mg/hr 1 patch TD Q24H #90 ea 03/30/20 10/04/20 Rx transdermal 24 hour patch warfarin 5 mg tablet See Rx Instructions PO UD #90 tab 06/23/20 10/04/20 Rx atorvastatin 40 mg PO HS 06/26/20 10/04/20 History levothyroxine 100 mcg PO HS 06/26/20 10/04/20 History alendronate 70 mg tablet 70 mg PO WK tab 08/18/20 10/04/20 History carvedilol 6.25 mg tablet 3.125 mg PO BID #90 tab 09/17/20 10/04/20 Rx Past Med/Surg History Medical History Anticoagulated on warfarin Bilateral primary osteoarthritis of knee Coronary atherosclerosis of pamunkey coronary vessel History of non-Hodgkin's lymphoma HTN (hypertension) Hyperlipidemia Hypothyroidism Mitral regurgitation Peripheral neuropathy Presence of IVC filter Primary cutaneous T-cell lymphoma Primary hypercoagulable state Pulmonary embolism Spinal stenosis of lumbar region Syncope Thoracic spinal stenosis Surgical History H/O: hysterectomy History of breast surgery History of colonoscopy History of tonsillectomy and adenoidectomy Hx of appendectomy Hx of cholecystectomy Family History Father Cancer Myocardial infarction Prostate cancer Heart disease Brother Prostate cancer Myocardial infarction Heart disease Other Coronary heart disease Denies family history of Ovarian cancer Breast cancer Lung cancer Colorectal cancer Social History Smoking Status: Never smoker Second Hand Exposure: No; Hx Alcohol Use: No Hx Substance Use: No Preferred Language: Faroese Communication Ability: Effective Visual Impairment: Limited Hearing Ability: Normal Environmental Lead Required: No Beliefs That Will Affect Care: None marital status: / Current Living Situation: Alone current occupational status: retired How many Children do You have: 2 Other Information That Helps Us Care for You: No Feels Safe at Home: Yes Safety Concerns: Feels Safe At This Time Childhood Exposure to Second-Hand Smoke: Yes caffeine: No Dental Care, Regularly: Yes Physical Activity Frequency: 3-4 Times per Week Physical Activity Frequency Comment: due to Covid Seatbelt Use: always Sunscreen Use: Yes Assistive Devices: None Review of Systems Review of Systems: The patient denies chest pain, palpitations, shortness of breath, dyspnea on exertion, cough, lower extremity swelling, sore throat, fevers, chills, sweats, nausea, vomiting, diarrhea , constipation, abdominal pain, pelvic pain, blood in urine or stool, dysuria, urinary frequency or urgency, lightheadedness, dizziness, headache, loss of consciousness, rash, abnormal bruising or bleeding, focal weakness, numbness or tingling in arms or legs, generalized arthralgias or myalgias, back or neck pain, or night sweats. The review of systems is otherwise negative other than for that already noted above, and at least 10 systems have been reviewed. Physical Exam Physical Exam: The patient is awake, alert and oriented 3, well developed and well nourished, normocephalic and atraumatic, lying in bed and in no acute distress. HEENT--PERRL, EOMI, mucous membranes and oropharynx normal. Neck--supple. No JVD. No bruits. Thyroid normal, trachea midline, no adenopathy. Heart--normal S1 and S2. No murmurs, rubs or gallops. Lungs--clear bilaterally, no respiratory distress, no accessory muscle use. Abdomen--normal bowel sounds and soft. Nontender. Nondistended, no hernias or masses, no organomegaly. Extremities--no cyanosis or clubbing. No edema. Dermatologic--normal skin turgor, normal color, no abnormal lymph nodes, no rash. Neurologic--cranial nerves II through XII grossly intact. Rheumatologic--normal range of motion. Psychiatric--normal affect. Results & Data Results & Data ([facility]) Vital Signs (Past 12 Hours) Vital Signs Temp Pulse Resp BP Pulse Ox 10/04/20 20:17 77 23 133/87 97 10/04/20 19:22 97.3 F L 93 H 18 128/76 99 Laboratory Results Laboratory Results WBC 8.52 K/uL (4.8-10.8) 10/04/20 20:49 RBC 4.79 M/uL (4.2-5.4) 10/04/20 20:49 Hgb 15.3 g/dL (12.0-16.0) 10/04/20 20:49 Hct 44.7 % (37-47) 10/04/20 20:49 MCV 93.3 fL (80-100) 10/04/20 20:49 MCH 31.9 pg (25-34) 10/04/20 20:49 MCHC 34.2 g/dL (32-36) 10/04/20 20:49 RDW Std Deviation 47.4 fL (36.4-46.3) H 10/04/20 20:49 RDW Coeff of Jhonathan 13.8 % (11.5-14.5) 10/04/20 20:49 Plt Count 259 K/uL (130-400) 10/04/20 20:49 MPV 9.7 fL (7.4-10.4) 10/04/20 20:49 Immature Gran % (Auto) 0.2 % 10/04/20 20:49 Neut % (Auto) 63.4 % 10/04/20 20:49 Lymph % (Auto) 21.8 % 10/04/20 20:49 Rosebud % (Auto) 14.0 % 10/04/20 20:49 Eos % (Auto) 0.5 % 10/04/20 20:49 Baso % (Auto) 0.1 % 10/04/20 20:49 Neut # (Auto) 5.40 K/uL (1.4-6.5) 10/04/20 20:49 Lymph # (Auto) 1.86 K/uL (1.2-3.4) 10/04/20 20:49 Rosebud # (Auto) 1.19 K/uL (0.11-0.59) H 10/04/20 20:49 Eos # (Auto) 0.04 K/uL (0-0.5) 10/04/20 20:49 Baso # (Auto) 0.01 K/uL (0-0.2) 10/04/20 20:49 Immature Gran # (Auto) 0.02 K/uL (0.00-0.02) 10/04/20 20:49 PT 18.2 Seconds (9.0-12.0) H 10/04/20 20:49 INR 1.9 (0.9-1.1) H 10/04/20 20:49 Sodium 135 mmol/L (136-145) L 10/04/20 20:49 Potassium 3.9 mmol/L (3.5-5.1) 10/04/20 20:49 Chloride 102 mmol/L (98-107) 10/04/20 20:49 Carbon Dioxide 26 mmol/L (21-32) 10/04/20 20:49 Anion Gap 7.0 (3-11) 10/04/20 20:49 BUN 23 mg/dl (7-18) H 10/04/20 20:49 Creatinine 0.86 mg/dl (0.6-1.2) 10/04/20 20:49 Est Cr Clr Drug Dosing 43.8 ml/min 10/04/20 20:49 Est GFR ( Amer) 71.9 ml/min 10/04/20 20:49 Est GFR (Non-Af Amer) 62.0 ml/min 10/04/20 20:49 BUN/Creatinine Ratio 26.2 (10-20) H 10/04/20 20:49 Glucose 118 mg/dl (70-99) H 10/04/20 20:49 Calcium 9.0 mg/dl (8.5-10.1) 10/04/20 20:49 Magnesium 2.1 mg/dl (1.8-2.4) 10/04/20 20:49 Total Bilirubin 3.0 mg/dl (0.2-1) H 10/04/20 20:49 AST 20 U/L (15-37) 10/04/20 20:49 ALT 20 U/L (12-78) 10/04/20 20:49 Alkaline Phosphatase 51 U/L (45-117) 10/04/20 20:49 Troponin I < 0.015 ng/ml (0-0.045) 10/04/20 20:49 NT-Pro-B Natriuret Pep 677 pg/ml (0-1800) 10/04/20 20:49 Total Protein 6.8 gm/dl (6.4-8.2) 10/04/20 20:49 Albumin 3.6 gm/dl (3.4-5.0) 10/04/20 20:49 Globulin 3.2 gm/dl (2.5-4.0) 10/04/20 20:49 Albumin/Globulin Ratio 1.1 (0.9-2) 10/04/20 20:49 Lipase 159 U/L (73-393) 10/04/20 20:49 TSH 1.460 uIu/ml (0.300-4.500) 10/04/20 20:49 Urine Color Dark Yellow 10/04/20 21:33 Urine Appearance Clear (Clear) 10/04/20 21:33 Urine pH 6.0 (4.5-7.5) 10/04/20 21:33 Ur Specific [place] 1.023 (1.000-1.030) 10/04/20 21:33 Urine Protein Trace (Negative) H 10/04/20 21:33 Urine Glucose (UA) Negative (Negative) 10/04/20 21:33 Urine Ketones 1+ (Negative) H 10/04/20 21:33 Urine Blood Trace (Negative) H 10/04/20 21:33 Urine Nitrite Negative (Negative) 10/04/20 21: Urine Bilirubin Negative (Negative) 10/04/20 21:33 Urine Urobilinogen Negative (Negative) 10/04/20 21:33 Ur Leukocyte Esterase 2+ (Negative) H 10/04/20 21:33 Urine WBC (Auto) >30 /hpf (0-5) H 10/04/20 21:33 Urine RBC (Auto) 10-30 /hpf (0-4) H 10/04/20 21:33 U Hyaline Cast (Auto) 10-30 /lpf (0-5) H 10/04/20 21:33 U Epithel Cells (Auto) >30 /lpf (0-5) H 10/04/20 21:33 Urine Bacteria (Auto) Negative (Negative) 10/04/20 21:33 Ur Renal Epithelial Cell Not Reportable 10/04/20 21:33 COVID-19 Eval Order Covid19 at [facility] 10/04/20 23:25 SARS-CoV-2 (PCR) NEGATIVE (Negative) 10/04/20 23:25 Diagnostic Findings [facility] Patient: PRATIK OSPINA (Female) : 37 Status: ER Date: 10/04/20 22:05 Room #: History: ? cva/tia optiray 350 117ml ek/jmp Slices: 59 Priors: Tech: Jean Claude Zee @ [id number] Exams: CT HEAD Contrast: Accession Numbers: [id number] Preliminary Findings Only See Final Report For Complete Findings CT HEAD: No intracranial hemorrhage, mass-effect, or edema. 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 Radiologist: Tyler Alicea MD Study ready at 22:10 and initial results transmitted at 22:18 *This report constitutes a preliminary interpretation only. Non-acute findings felt to be unrelated to the clinical presentation may not be discussed in this report. The study will be interpreted and a final report will be generated by the local Radiologist the following shift. To reach the hospital radiology department call [phone]. If a discrepancy is found between the preliminary and final interpretations of this study, please notify us via our Client Portal at [email or web address] can also fax this report with a description of the discrepancy, or include the final report, to our daytime fax number [phone].If faxing, please indicate the severity of discrepancy using one of the following categories: [ ] 1 - Agree/Informational [ ] 2 - Unlikely to Affect Management [ ] 3 - Possible Eventual Change of Management [ ] 4 - Probable Immediate Change of Management For all other patient related information, please fax us at [phone]. [id number] [facility] Patient: PRATIK OSPINA (Female) : 37 Status: ER Date: 10/04/20 22:06 Room #: History: ? cva/tia optiray 350 117ml ek/jmp Slices: 569 Priors: Tech: Jean Claude Zee @ [id number] Exams: CTA HEAD Contrast: IV Amt: 117ml Accession Numbers: [id number] Preliminary Findings Only See Final Report For Complete Findings CTA HEAD: No arterial occlusion, high-grade stenosis, aneurysm, or dissection. Radiologist: Tyler Alicea MD Study ready at 22:12 and initial results transmitted at 22:22 *This report constitutes a preliminary interpretation only. Non-acute findings felt to be unrelated to the clinical presentation may not be discussed in this report. The study will be interpreted and a final report will be generated by the local Radiologist the following shift. To reach the hospital radiology department call [phone]. If a discrepancy is found between the preliminary and final interpretations of this study, please notify us via our Client Portal at [email or web address].You can also fax this report with a description of the discrepancy, or include the final report, to our daytime fax number [phone].If faxing, please indicate the severity of discrepancy using one of the following categories: [ ] 1 - Agree/Informational [ ] 2 - Unlikely to Affect Management [ ] 3 - Possible Eventual Change of Management [ ] 4 - Probable Immediate Change of Management For all other patient related information, please fax us at [phone]. [id number] [facility] Patient: PRATIK OSPINA (Female) : 37 Status: ER Date: 10/04/20 22:06 Room #: History: ? cva/tia optiray 350 117ml ek/jmp Slices: 726 Priors: Tech: Jean Claude Zee @ [id number] Exams: CTA NECK Contrast: IV Amt: 117ml Accession Numbers: [id number] Preliminary Findings Only See Final Report For Complete Findings CTA NECK: No arterial occlusion, high-grade stenosis, aneurysm, or dissection. Radiologist: Tyler Alicea MD Study ready at 22:17 and initial results transmitted at 22:24 *This report constitutes a preliminary interpretation only. Non-acute findings felt to be unrelated to the clinical presentation may not be discussed in this report. The study will be interpreted and a final report will be generated by the local Radiologist the following shift. To reach the hospital radiology department call [phone]. If a discrepancy is found between the preliminary and final interpretations of this study, please notify us via our Client Portal at [email or web address] can also fax this report with a description of the discrepancy, or include the final report, to our daytime fax number [phone].If faxing, please indicate the severity of discrepancy using one of the following categories: [ ] 1 - Agree/Informational [ ] 2 - Unlikely to Affect Management [ ] 3 - Possible Eventual Change of Management [ ] 4 - Probable Immediate Change of Management For all other patient related information, please fax us at [phone]. [id number] Code Status & VTE Plan Code Status Full code VTE Prophylaxis Plan VTE Prophylaxis will be ordered: Yes PG Care Time/CCT Total # of Minutes Spent Total Time Spent with Patient: Total time spent is greater than 50% in coordination of care (as documented) at patient's floor/unit and/or counseling patient: Coding Level of Care Code 25590 OBS Care - Level 3 Diagnoses Stroke-like symptoms R29.90 UTI (urinary tract infection) N39.0 Coronary atherosclerosis of pamunkey coronary vessel I25.10 HTN (hypertension) I10 Hyperlipidemia E78.5 Hypothyroidism E03.9 Pulmonary embolism I26.99 Anticoagulated on warfarin Z79.01 Presence of IVC filter Z95.828 Primary hypercoagulable state D68.59
[2020-10-05] MEDS ORDERED: ONDANSETRON INJ 2 MG/ML 2 ML VIAL IV PRN (02:23)
[2020-10-05] MEDS ORDERED: ACETAMINOPHEN 325 MG TAB PO PRN (02:23)
[2020-10-05] MEDS ORDERED: NSS + 20MEQ KCL 20 MEQ/1,000 ML BAG IV SCH (03:15)
[2020-10-05] MEDS: carvediloL 3.125 MG TAB PO SCH ×2 (04:06→08:33)
--- NOTE | 2020-10-05 07:20 | CT Scan Report ---
UNENHANCED CT OF THE BRAIN; CT ANGIOGRAM OF THE BRAIN; CT ANGIOGRAM OF THE NECK CLINICAL HISTORY: Strokelike symptoms. COMPARISON STUDY: CT of the brain dated 06/26/2020. MR angiogram of the brain dated 05/25/2012. CT of th e cervical spine dated 06/26/2020. TECHNIQUE: Unenhanced axial CT scan of the brain is performed. Subsequently, following the IV adminis tration of 117 of Optiray 350, CT angiogram of the head and neck was performed from the aortic arch t o the vertex. Images are reviewed in the axial, sagittal, and coronal planes. 3-D MIPS images are cre ated and assessed. IV contrast was administered without complication. All measurements were calculate d based on NASCET criteria. A dose lowering technique was utilized adhering to the principles of ALA RA. CT DOSE: 1255.21 mGy.cm FINDINGS: Brain parenchyma: There is age-related involutional change noting mild subcortical and periventricula r microangiopathic disease. There is no hemorrhage, mass effect, or evidence of acute territorial isc hemia by CT criteria. There is no evidence of enhancing mass lesion on the angiogram phase images. Th e ventricles, sulci, and cisterns are prominent secondary to involutional change. Scott-white matter d ifferentiation is preserved. No extra-axial fluid collection is seen. Thoracic aorta: There is atherosclerotic calcification of the thoracic aorta. Visualized portions of the thoracic aorta are normal in caliber. The aortic arch demonstrates standard 3-vessel anatomy. Right carotid arterial system: The right common carotid artery is widely patent, as are the right int ernal and external carotid arteries. Calcified plaque is noted in the carotid bulb. Left carotid arterial system: The left common carotid artery is widely patent, as are the left grinder set up operator internal al and external carotid arteries. Calcified plaque is noted in the carotid bulb. Vertebral arteries: The vertebral arteries are widely patent bilaterally noting left-sided dominance. Subclavian arteries: Widely patent bilaterally. Intracranial vasculature: There is atherosclerotic calcification of the cavernous carotid and vertebr al arteries. There is a large right posterior communicating artery. The internal carotid arteries are patent at the skull base, as are the anterior and middle cerebral arteries bilaterally. The vertebro basilar system and posterior cerebral arteries are widely patent. The left vertebral artery is domina nt. There is no aneurysm, high-grade stenosis, or focal vessel cut off seen throughout the intracrani al circulation. Jugular veins: Patent bilaterally. Dural sinuses: Patent. Lung apices: Partially visualized upper lobe lung parenchyma appears clear. Soft tissues: The visualized pharyngeal soft tissues are normal in appearance noting angiographic pha se technique. The oropharyngeal airway appears widely patent. The salivary and thyroid glands are nor mal in appearance. No cervical lymphadenopathy is seen. Skeletal structures: The skeletal structures are osteopenic. The calvarium appears intact noting left parietal laverne holes. There are chronic compression deformities of C7, T1, T2, and T3. The cervical s pine is otherwise maintained noting multilevel spondylosis. No lytic or blastic lesion is seen. Orbits: The bony orbits are intact. Orbital contents are normal as visualized noting bilateral ocular lens implants. Sinuses and mastoids: Trace mucosal thickening is noted in the maxillary antra. The remaining paranas al sinuses are clear. The mastoid air cells are well pneumatized. IMPRESSION: 1. There is no hemorrhage, mass effect, or evidence of acute territorial ischemia by CT criteria. 2. Unremarkable CT angiogram of the brain. 3. Unremarkable CT angiogram of the neck. ACT 112: Negative or not required by law. Electronically signed by: Jean Claude Tello M.D. 10/05/2020 7:19 AM
[2020-10-05 07:26] LABS: INR 1.6 (0.9-1.1); Partial Thromboplastin Ratio 1.2; Partial Thromboplastin Time 31.3 Seconds (21.0-31.0); Prothrombin Time 15.6 Seconds (9.0-12.0)
--- NOTE | 2020-10-05 08:00 | Magnetic Resonance Report ---
MRI OF THE BRAIN WITHOUT IV CONTRAST CLINICAL HISTORY: Strokelike symptoms. COMPARISON STUDY: CT of the brain dated 10/04/2020. MRI of the brain dated 05/25/2012. TECHNIQUE: MRI of the brain was performed utilizing various T1 and T2-weighted sequences in the axial , sagittal, and coronal planes. IV contrast was not administered for this examination. FINDINGS: Brain parenchyma: There is age-related involutional change noting mild subcortical and periventricula r microangiopathic disease. There are small chronic infarcts in the left centrum semiovale and the hi gh left parietal cortex. There is no hemorrhage or mass effect. There is no restricted diffusion to s uggest acute ischemia. Scott-white matter differentiation is preserved. No extra-axial fluid collectio n is seen. The cerebellar tonsils are normal in configuration. Ventricles, sulci, and cisterns: Prominent secondary to involutional change. Pituitary and sella: Unremarkable. Intracranial vasculature: Normal flow voids are maintained at the skull base. Orbits: The bony orbits are grossly intact. Orbital contents are normal in appearance noting bilatera l ocular lens implants. Sinuses and mastoids: There is trace mucosal thickening right maxillary antrum. The remaining paranas al sinuses and the mastoid air cells are clear. Calvarium: There are left parietal alverne holes. No destructive calvarial lesion is identified. Cervical cord: Partially visualized cervical spinal cord is normal in morphology and signal intensity . IMPRESSION: No acute intracranial abnormality. ACT 112: Negative or not required by law. Electronically signed by: Jean Claude Tello M.D. 10/05/2020 7:59 AM
--- NOTE | 2020-10-05 08:32 | Hospitalist Progress Note ---
Date of Service October 05, 2020 Assessment & Plan Admission and Anticipated Discharge Date Admission Date: October 05, 2020 Subjective BRIDGE NOTE: ADMIT 00:52 Results & Data Results & Data ([facility]) Vital Signs (Past 12 Hours) Vital Signs Temp Pulse Pulse Pulse Resp BP BP 10/05/20 07:38 36.7 C 75 18 126/69 10/05/20 02:00 36.6 C 78 78 16 133/88 10/05/20 01:00 71 17 129/64 10/05/20 00:52 70 20 134/70 10/05/20 00:30 73 16 139/76 10/05/20 00:00 69 19 136/73 10/04/20 23:31 75 21 131/71 10/04/20 23:00 70 21 122/65 Pulse Ox 10/05/20 07:38 97 10/05/20 02:00 95 10/05/20 01:00 97 10/05/20 00:52 97 10/05/20 00:30 99 10/05/20 00:00 98 10/04/20 23:31 98 10/04/20 23:00 99 Laboratory Results 10/05/20 10/04/20 10/04/20 Range/Units 06:52 23:25 23:25 WBC (4.8-10.8) K/uL RBC (4.2-5.4) M/uL Hgb (12.0-16.0) g/dL Hct (37-47) % MCV (80-100) fL MCH (25-34) pg MCHC (32-36) g/dL RDW Std Deviation (36.4-46.3) fL RDW Coeff of Jhonathan (11.5-14.5) % Plt Count (130-400) K/uL MPV (7.4-10.4) fL Immature Gran % (Auto) % Neut % (Auto) % Lymph % (Auto) % [place] % (Auto) % Eos % (Auto) % Baso % (Auto) % Neut # (Auto) (1.4-6.5) K/uL Lymph # (Auto) (1.2-3.4) K/uL [place] # (Auto) (0.11-0.59) K/uL Eos # (Auto) (0-0.5) K/uL Baso # (Auto) (0-0.2) K/uL Immature Gran # (Auto) (0.00-0.02) K/uL PT 15.6 H (9.0-12.0) Seconds INR 1.6 H (0.9-1.1) APTT 31.3 H (21.0-31.0) Seconds PTT Ratio 1.2 Sodium (136-145) mmol/L Potassium (3.5-5.1) mmol/L Chloride (98-107) mmol/L Carbon Dioxide (21-32) mmol/L Anion Gap (3-11) BUN (7-18) mg/dl Creatinine (0.6-1.2) mg/dl Est Cr Clr Drug Dosing ml/min Est GFR ( Amer) ml/min Est GFR (Non-Af Amer) ml/min BUN/Creatinine Ratio (10-20) Glucose (70-99) mg/dl Calcium (8.5-10.1) mg/dl Magnesium (1.8-2.4) mg/dl Total Bilirubin (0.2-1) mg/dl AST (15-37) U/L ALT (12-78) U/L Alkaline Phosphatase (45-117) U/L Troponin I (0-0.045) ng/ml NT-Pro-B Natriuret Pep (0-1800) pg/ml Total Protein (6.4-8.2) gm/dl Albumin (3.4-5.0) gm/dl Globulin (2.5-4.0) gm/dl Albumin/Globulin Ratio (0.9-2) Lipase (73-393) U/L TSH (0.300-4.500) uIu/ml Urine Color Urine Appearance (Clear) Urine pH (4.5-7.5) Ur Specific [place] (1.000-1.030) Urine Protein (Negative) Urine Glucose (UA) (Negative) Urine Ketones (Negative) Urine Blood (Negative) Urine Nitrite (Negative) Urine Bilirubin (Negative) Urine Urobilinogen (Negative) Ur Leukocyte Esterase (Negative) Urine WBC (Auto) (0-5) /hpf Urine RBC (Auto) (0-4) /hpf U Hyaline Cast (Auto) (0-5) /lpf U Epithel Cells (Auto) (0-5) /lpf Urine Bacteria (Auto) (Negative) Ur Renal Epithelial Cell COVID-19 Eval Order Covid19 at [facility] SARS-CoV-2 (PCR) NEGATIVE (Negative) 10/04/20 10/04/20 10/04/20 Range/Units 21:33 20:49 20:49 WBC (4.8-10.8) K/uL RBC (4.2-5.4) M/uL Hgb (12.0-16.0) g/dL Hct (37-47) % MCV (80-100) fL MCH (25-34) pg MCHC (32-36) g/dL RDW Std Deviation (36.4-46.3) fL RDW Coeff of Jhonathan (11.5-14.5) % Plt Count (130-400) K/uL MPV (7.4-10.4) fL Immature Gran % (Auto) % Neut % (Auto) % Lymph % (Auto) % [place] % (Auto) % Eos % (Auto) % Baso % (Auto) % Neut # (Auto) (1.4-6.5) K/uL Lymph # (Auto) (1.2-3.4) K/uL [place] # (Auto) (0.11-0.59) K/uL Eos # (Auto) (0-0.5) K/uL Baso # (Auto) (0-0.2) K/uL Immature Gran # (Auto) (0.00-0.02) K/uL PT 18.2 H (9.0-12.0) Seconds INR 1.9 H (0.9-1.1) APTT (21.0-31.0) Seconds PTT Ratio Sodium 135 L (136-145) mmol/L Potassium 3.9 (3.5-5.1) mmol/L Chloride 102 (98-107) mmol/L Carbon Dioxide 26 (21-32) mmol/L Anion Gap 7.0 (3-11) BUN 23 H (7-18) mg/dl Creatinine 0.86 (0.6-1.2) mg/dl Est Cr Clr Drug Dosing 43.8 ml/min Est GFR ( Amer) 71.9 ml/min Est GFR (Non-Af Amer) 62.0 ml/min BUN/Creatinine Ratio 26.2 H (10-20) Glucose 118 H (70-99) mg/dl Calcium 9.0 (8.5-10.1) mg/dl Magnesium 2.1 (1.8-2.4) mg/dl Total Bilirubin 3.0 H (0.2-1) mg/dl AST 20 (15-37) U/L ALT 20 (12-78) U/L Alkaline Phosphatase 51 (45-117) U/L Troponin I < 0.015 (0-0.045) ng/ml NT-Pro-B Natriuret Pep 677 (0-1800) pg/ml Total Protein 6.8 (6.4-8.2) gm/dl Albumin 3.6 (3.4-5.0) gm/dl Globulin 3.2 (2.5-4.0) gm/dl Albumin/Globulin Ratio 1.1 (0.9-2) Lipase 159 (73-393) U/L TSH 1.460 (0.300-4.500) uIu/ml Urine Color Dark Yellow Urine Appearance Clear (Clear) Urine pH 6.0 (4.5-7.5) Ur Specific [place] 1.023 (1.000-1.030) Urine Protein Trace H (Negative) Urine Glucose (UA) Negative (Negative) Urine Ketones 1+ H (Negative) Urine Blood Trace H (Negative) Urine Nitrite Negative (Negative) Urine Bilirubin Negative (Negative) Urine Urobilinogen Negative (Negative) Ur Leukocyte Esterase 2+ H (Negative) Urine WBC (Auto) >30 H (0-5) /hpf Urine RBC (Auto) 10-30 H (0-4) /hpf U Hyaline Cast (Auto) 10-30 H (0-5) /lpf U Epithel Cells (Auto) >30 H (0-5) /lpf Urine Bacteria (Auto) Negative (Negative) Ur Renal Epithelial Cell Not Reportable COVID-19 Eval Order SARS-CoV-2 (PCR) (Negative) 10/04/20 Range/Units 20:49 WBC 8.52 (4.8-10.8) K/uL RBC 4.79 (4.2-5.4) M/uL Hgb 15.3 (12.0-16.0) g/dL Hct 44.7 (37-47) % MCV 93.3 (80-100) fL MCH 31.9 (25-34) pg MCHC 34.2 (32-36) g/dL RDW Std Deviation 47.4 H (36.4-46.3) fL RDW Coeff of Jhonathan 13.8 (11.5-14.5) % Plt Count 259 (130-400) K/uL MPV 9.7 (7.4-10.4) fL Immature Gran % (Auto) 0.2 % Neut % (Auto) 63.4 % Lymph % (Auto) 21.8 % [place] % (Auto) 14.0 % Eos % (Auto) 0.5 % Baso % (Auto) 0.1 % Neut # (Auto) 5.40 (1.4-6.5) K/uL Lymph # (Auto) 1.86 (1.2-3.4) K/uL [place] # (Auto) 1.19 H (0.11-0.59) K/uL Eos # (Auto) 0.04 (0-0.5) K/uL Baso # (Auto) 0.01 (0-0.2) K/uL Immature Gran # (Auto) 0.02 (0.00-0.02) K/uL PT (9.0-12.0) Seconds INR (0.9-1.1) APTT (21.0-31.0) Seconds PTT Ratio Sodium (136-145) mmol/L Potassium (3.5-5.1) mmol/L Chloride (98-107) mmol/L Carbon Dioxide (21-32) mmol/L Anion Gap (3-11) BUN (7-18) mg/dl Creatinine (0.6-1.2) mg/dl Est Cr Clr Drug Dosing ml/min Est GFR ( Amer) ml/min Est GFR (Non-Af Amer) ml/min BUN/Creatinine Ratio (10-20) Glucose (70-99) mg/dl Calcium (8.5-10.1) mg/dl Magnesium (1.8-2.4) mg/dl Total Bilirubin (0.2-1) mg/dl AST (15-37) U/L ALT (12-78) U/L Alkaline Phosphatase (45-117) U/L Troponin I (0-0.045) ng/ml NT-Pro-B Natriuret Pep (0-1800) pg/ml Total Protein (6.4-8.2) gm/dl Albumin (3.4-5.0) gm/dl Globulin (2.5-4.0) gm/dl Albumin/Globulin Ratio (0.9-2) Lipase (73-393) U/L TSH (0.300-4.500) uIu/ml Urine Color Urine Appearance (Clear) Urine pH (4.5-7.5) Ur Specific [place] (1.000-1.030) Urine Protein (Negative) Urine Glucose (UA) (Negative) Urine Ketones (Negative) Urine Blood (Negative) Urine Nitrite (Negative) Urine Bilirubin (Negative) Urine Urobilinogen (Negative) Ur Leukocyte Esterase (Negative) Urine WBC (Auto) (0-5) /hpf Urine RBC (Auto) (0-4) /hpf U Hyaline Cast (Auto) (0-5) /lpf U Epithel Cells (Auto) (0-5) /lpf Urine Bacteria (Auto) (Negative) Ur Renal Epithelial Cell COVID-19 Eval Order SARS-CoV-2 (PCR) (Negative) PG Care Time/CCT Total # of Minutes Spent Total Time Spent with Patient: Total time spent is greater than 50% in coordination of care (as documented) at patient's floor/unit and/or counseling patient: Coding
[2020-10-05] MEDS ORDERED: NITROGLYCERIN 0.2 MG/HR PATCH TD SCH (09:00)
--- NOTE | 2020-10-05 09:45 | XRay Report ---
XR chest 1V portable CLINICAL HISTORY: confusion COMPARISON STUDY: Chest radiograph June 26, 2020. FINDINGS: Lung volumes are normal. There is no pneumothorax or definite pleural effusion. There is a possible trace left pleural effusion. There is no evidence for pulmonary edema or pneumonia. Cardiome fidel is unchanged. IMPRESSION: No acute cardiopulmonary findings. ACT 112: Negative or not required by law. Electronically signed by: Armando Gil M.D. 10/05/2020 9:44 AM
[2020-10-05] MEDS ORDERED: CEROVITE ADV FORMULA TAB PO SCH (12:00)
[2020-10-05] MEDS ORDERED: ASPIRIN 81 MG ECTAB PO SCH (12:00)
[2020-10-05] MEDS ORDERED: CALCIUM 600MG + VIT D 400 IU TAB PO SCH (12:00)
[2020-10-05] MEDS ORDERED: MULTIVITAMIN TAB PO SCH (12:00)
[2020-10-05] MEDS ORDERED: ENOXAPARIN INJ 30 MG/0.3 ML SYR SQ ONE (12:10)
--- NOTE | 2020-10-05 12:44 | Discharge Summary ---
Date of Service October 05, 2020 Admission HPI Per Admitting Provider The patient is an 85-year-old female with a past medical history including lumbar spinal stenosis and radiculopathy, abdominal aortic aneurysm, atrial septal aneurysm, chronic osteoarthritis, colonic diverticulosis, right bundle branch block, vitamin D deficiency, chronic anticoagulation with warfarin, CAD of kar[place] coronary vessel, history of NHL, hyperlipidemia, hypertension, hypothyroidism, peripheral neuropathy, status post IVC filter placement, primary cutaneous T-cell lymphoma, and primary hypercoagulable state. She reports that yesterday she was at her second home in [place], where she drove there by hers elf, and became confused, could not speak and was unable to perform basic functioning. She reports that when she awoke today, her symptoms had improved, and she called her daughter, who came to pick her up, and brought her back to the area. In the emergency department, the patient's daughter confirms that the patient appears to be back to her baseline Admission Exam Per Admitting Provider The patient is awake, alert and oriented 3, well developed and well nourished, normocephalic and atraumatic, lying in bed and in no acute distress. HEENT--PERRL, EOMI, mucous membranes and oropharynx normal. Neck--supple. No JVD. No bruits. Thyroid normal, trachea midline, no adenopathy. Heart--normal S1 and S2. No murmurs, rubs or gallops. Lungs--clear bilaterally, no respiratory distress, no accessory muscle use. Abdomen--normal bowel sounds and soft. Nontender. Nondistended, no hernias or masses, no organomegaly. Extremities--no cyanosis or clubbing. No edema. Dermatologic--normal skin turgor, normal color, no abnormal lymph nodes, no rash. Neurologic--cranial nerves II through XII grossly intact. Rheumatologic--normal range of motion. Psychiatric--normal affect. Principal Diagnosis Dehydration, Stroke-like symptoms Discharge Exam Constitutional WD/WN, vitals as above cooperative and comfortable; no acute distress Eyes PERRL, conjunctivae normal, anicteric sclerae (ecchymosis under LEFT eye (prior fall August 15)) ENMT external ear and nose normal, oropharynx normal Neck trachea midline, no thyromegaly Respiratory normal respiratory effort, lungs clear to auscultation Cardiovascular RRR, no murmur, no edema Gastrointestinal (Abdomen) normal bowel sounds, soft, nontender, no hepatosplenomegaly Musculoskeletal no cyanosis or clubbing, extremities motor strength 5/5 Skin no rashes, warm and dry Neurologic patellar DTR's 2+ bilat, sensation intact and PERRL, EOMI, accommodation nl, no face palsy, no dysarthria Psychiatric A+Ox3, euthymic affect Genitourinary NO OHARA Lymphatic no cervical or axillary lymphadenopathy Discharge Data Allergies Allergy/AdvReac Type Severity Reaction Status Date / Time No Known Drug Allergies Allergy Verified 10/04/20 21:02 Consultations 10/05/20 01:17 ED Decision to Admit Stat Ordered Studies 10/04/20 19:50 CT angio head w con Urgent CT angio neck with con Urgent CXR 10/04/20 19:51 CT head/brain wo con Urgent 10/05/20 04:12 MR brain wo con Routine Hospital Course (1) Stroke-like symptoms: Strokelike symptoms- several days prior. Out of window for stroke alert/TPA order set Symptoms of confusion and word finding and ambulation resolved prior to admission (resolved prior to traveling back to [place] from [place] before being brought in). Of note, with regards to ambulation she has chronic arthritis and has been following with Dr. Alvarez and gets injections (on the fence about replacement), most recently in July 2020. 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 Suspect from dehydration. No pain. Supportive care with IVF -- suspect from dehydration from poor PO intake and travel as outlined in HPI A1c 5.4 Lipid panel wnl All symptoms resolved prior to admission and no recurrance. Possibly related to dehydration given recent travel Continue aspirin but to take daily Follow up with PCP (2) UTI (urinary tract infection): Follow urine culture and sensitivity -- pin point growth at time of d/c and patient wanted to go home. Sent rx for Keflex and given dose of Rocephin prior to d/c in event cx with growth can start PO abx tomorrow for 5 day course --> NEGATIVE CULTURE Did not have any urinary symptoms but did admit to poor PO intake due to traveling back from [place] (3) Coronary atherosclerosis of [place] coronary vessel: CAD/hypertension- her anginal equivalent is reflux (none reported, trop negative). Follows with Dr. Vital. Recent Echo May 2020 and plans for repeat in 2-3 yrs. Mod MR. Diastolic grade II. CAD- unrevascularized distal RCA disease, small distal circumflex disease-- stable CCS class II on 2 antianginals --> Of note, does have history of atrial septal aneurysm, PE and is on anticoagulation (also with IVC filter for primary hypercoag state in setting of subdrual hematoma) Continue aspirin, carvedilol Rec ASA to be daily and f/u PCP for further prevention strategies (4) HTN (hypertension): See above (5) Hyperlipidemia: Continue atorvastatin. Check a fasting lipid panel -- wnl (6) Hypothyroidism: Continue levothyroxine 100 mcg daily TSH wnl (7) Pulmonary embolism: History of pulmonary embolism/presence of IVC filter/primary hypercoagulable state- Chronic anticoagulation with warfarin to continue. Given dose of Lovenox SQ while inpatient for subtherapeutic INR Resumed home dosing at d/c and should follow up with clinic for routine checks (8) Anticoagulated on warfarin: See above (9) Presence of IVC filter: See above (10) Primary hypercoagulable state: See above Discharged home. Total Time Total Time Spent Total Time Spent (In Minutes): 60 Discharge Plan Discharge Items Patient Disposition: Home - Self-Care Reason For Visit: CONFUSION Discharge Diagnosis: Dehydration Goals: You have been hospitalized for an acute medical problem. During your stay at [facility], we have made an effort to correct the problem that brought you to the hospital while keeping you as comfortable as possible. Medications were used to bring your condition under control and your discharge instructions will include directions for any medications you should take after leaving the hospital. Please make sure you see your Primary Care Provider as part of your follow up plan. Activity: Resume your previous activity Non-emergency contact: Primary Care Provider Call non-emergency contact if: you have any medication questions and your symptoms worsen Follow-up/Referrals: Jason Spangler MD [Primary Care Provider] - 10/08/20 3:30 pm () Diet: Heart Healthy Add Attending Provider Instructions: You have been hospitalized and imaging was obtained to ensure you did not have a stroke. CT of the Head and neck were negative. MRI of the brain was negative for stroke. Your symptoms have resolved. It is recommended that you continue with aspirin 81mg daily for prevention of stroke. Your lipid panel (cholesterol and triglycerides) was checked and these have been acceptable and without elevation. You should follow up with Dr. Spangler in the next 1-2 weeks to monitor your progress. Your urine did not look overly infected but culture has pin-point growth and is re-incubating. You will receive a dose of antibiotics today and will be sent a prescription for Keflex to take for an additional 3 days if this culture grows bacteria to treat possible UTI which can cause weakness/confusion but this may have also been from some dehydration which has resolved with IV fluids. Please return to the emergency department with any fever, repeat symptoms, chest pain, shortness of breath or for any other symptoms that are concerning for you. It has been a pleasure being a part of the medical team providing for you while you have been in the hospital. Take care! Pending Studies at Discharge: Yes Studies:: Urine culture A1c Stand-Alone Forms: My [facility] Medications and DC Order Prescriptions: New cephalexin 500 mg tablet 500 mg PO QID 3 Days Qty: 12 RF: 0 Continued Caltrate 600 plus D 600 mg (1,500 mg)-800 unit tablet,chewable 1 tab PO DAILY@1200 RF: 0 alendronate [Fosamax] 70 mg tablet 70 mg PO WK RF: 0 nitroglycerin 0.2 mg/hr patch 24 hour 1 patch TD Q24H Qty: 90 RF: 3 warfarin 5 mg tablet See Rx Instructions PO UD Qty: 90 RF: 3 carvedilol 6.25 mg tablet 3.125 mg PO BID Qty: 90 RF: 3 Macular Vitamin 500-5-1 mcg-mg-mg tablet 1 tab PO DAILY@1200 RF: 0 multivitamin [Daily Multi-Vitamin] Tablet 1 tab PO DAILY@1200 RF: 0 atorvastatin 40 mg tablet 40 mg PO HS RF: 0 levothyroxine 100 mcg tablet 100 mcg PO HS RF: 0 Changed aspirin 81 mg tablet,delayed release (DR/EC) 81 mg PO QAM Qty: 0 RF: 0 Discharge Orders: Discharge Order (Routine); Ordered 10/05/20 Ordered By: Bharati Rodrigues/Other Patient Handouts: Symptoms of Stroke, Risk Factors for Stroke, Healthy Lifestyle to Prevent ... Admission Data Admit Date/Time: 10/05/20 00:52 Attending Provider: Herrera Dixon. Admit Provider: Reza Knott Primary Care Provider: Jason Spangler Other Providers: Herrera Dixon Supervising Physician Co-Signing Physician Notes I supervised Bharati oRse PA-C on this discharge. I interviewed and examined the patient independently of her on the day of discharge. The plan is as written in her note except for any following changes/exceptions: None Doing well today. Feels fully recovered from her episode. We discussed possible causes and that we may not find out the exact cause. Possibly TIA, though honestly not even clear on this. Will continue conservative measures and will follow up with PCP. UA looked infected, but culture was negative, plus this seems unlikely to self-resolve if it was from a UTI. Coding Level of Care Code D/C Day Management >30 mins Diagnoses Stroke-like symptoms R29.90 UTI (urinary tract infection) N39.0 Coronary atherosclerosis of [place] coronary vessel I25.10 HTN (hypertension) I10 Hyperlipidemia E78.5 Hypothyroidism E03.9 Pulmonary embolism I26.99 Anticoagulated on warfarin Z79.01 Presence of IVC filter Z95.828 Primary hypercoagulable state D68.59
[2020-10-05] MEDS ORDERED: WARFARIN SOD 5 MG TAB PO SCH (16:00)
[2020-10-05 16:46] LABS: BUN Creatinine Ratio 20.1 (10-20); Calcium 8.5 mg/dl (8.5-10.1); Creatinine Clr Calc Pharmacy 44.3 ml/min; Est GFR (African American) 72.9 ml/min; Est GFR (Non-African American) 62.9 ml/min; Potassium 3.9 mmol/L (3.5-5.1)
--- NOTE | 2020-10-05 18:07 | Electrocardiogram Report ---
Test Reason : Blood Pressure : / mmHG Vent. Rate : 080 BPM Atrial Rate : 080 BPM P-R Int : 182 ms QRS Dur : 144 ms QT Int : 420 ms P-R-T Axes : 041 -12 -11 degrees QTc Int : 484 ms Normal sinus rhythm Possible Left atrial enlargement Right bundle branch block Abnormal ECG When compared with ECG of 26-JUN-2020 12:34, No significant change was found Confirmed by George Zaidi ([id number]) on 10/05/2020 6:07:07 PM Referred By: REFERRED SELF Confirmed By:Silverio Zaidi
[2020-10-05] MEDS ORDERED: cefTRIAXone SODIUM 1,000 MG in DEXTROSE 5% 50 ML IV SCH (20:00)
[2020-10-05] MEDS ORDERED: LEVOTHYROXINE SODIUM 100 MCG TABLET PO SCH (21:00)
[2020-10-05] MEDS ORDERED: ATORVASTATIN 40 MG TAB PO SCH (21:00)
[2020-10-06 07:20] LABS: Estimated Average Glucose 108 mg/dl; Hemoglobin A1C 5.4 % (4.5-5.6)
[2020-10-07] MEDS ORDERED: WARFARIN SOD 2.5 MG TAB PO SCH ×2 (16:00)
== END 2020-10-05 17:37 | disposition home or self-care (01) ==
LOC: ED 19:18 → 2N 19:18 → SUATTDRO 10-05 00:52 → 2N 10-05 01:59

== ENCOUNTER 2021-12-07 08:15 | Observation (INO) ==
--- NOTE | 2021-10-29 12:34 | PAT Medication Instructions ---
Medication Instructions Date of Service October 29, 2021 Home Medications Medication Instructions Recorded alendronate 70 mg tablet (Fosamax) 70 mg PO WK #12 tab 12/15/20 nitroglycerin 0.2 mg/hr 1 patch TD Q24H #90 ea 04/30/21 transdermal 24 hour patch levothyroxine 100 mcg tablet 100 mcg PO HS #90 tab 05/31/21 warfarin 5 mg tablet See Rx Instructions PO UD #90 tab 06/02/21 carvedilol 6.25 mg tablet 3.125 mg PO BID #90 tab 09/16/21 atorvastatin 40 mg tablet 40 mg PO QPM #90 tab 10/04/21 calcium carbonate 600 mg-vitamin D3 20 mcg (800 unit) chewable tablet (Caltrate 600 plus D) 1 tab PO DAILY multivitamin (Daily Multi-Vitamin) 1 tab PO DAILY acetaminophen 500 mg tablet 500 mg PO Q6H PRN acetaminophen 650 mg tablet,extended release (Tylenol Arthritis Pain) 650 mg PO HS alendronate 70 mg tablet (Fosamax) 70 mg PO WK [id number] 5 mg-zeaxanth 1 mg-bilberry 7.5 mg-herbal capsule (Macular Health Formula) 1 cap PO QPM nitroglycerin 0.2 mg/hr transdermal 24 hour patch 1 patch TD Q24H levothyroxine 100 mcg tablet 100 mcg PO HS warfarin 5 mg tablet See Rx Instructions PO UD aspirin 81 mg tablet,delayed release 81 mg PO 3XWK carvedilol 6.25 mg tablet 3.125 mg PO BID atorvastatin 40 mg tablet 40 mg PO QPM Continue as directed alendronate 70 mg tablet (Fosamax) 70 mg PO WK (do not take day of surgery) nitroglycerin 0.2 mg/hr transdermal 24 hour patch 1 patch TD Q24H (do not apply on or near surgical site) aspirin 81 mg tablet,delayed release 81 mg PO 3XWK (unless directed otherwise by surgeon) ASK your prescriber and surgeon warfarin 5 mg tablet See Rx Instructions PO UD STOP taking 2 weeks before surgery [id number] 5 mg-zeaxanth 1 mg-bilberry 7.5 mg-herbal capsule (Macular Health Formula) 1 cap PO QPM DO NOT take the morning of surgery calcium carbonate 600 mg-vitamin D3 20 mcg (800 unit) chewable tablet (Caltrate 600 plus D) 1 tab PO DAILY multivitamin (Daily Multi-Vitamin) 1 tab PO DAILY Take morning of surgery With a small sip of water, OTHERWISE NOTHING TO EAT OR DRINK AFTER MIDNIGHT: acetaminophen 500 mg tablet 500 mg PO Q6H PRN(if needed) carvedilol 6.25 mg tablet 3.125 mg PO BID Take evening before surgery acetaminophen 650 mg tablet,extended release (Tylenol Arthritis Pain) 650 mg PO HS levothyroxine 100 mcg tablet 100 mcg PO HS carvedilol 6.25 mg tablet 3.125 mg PO BID atorvastatin 40 mg tablet 40 mg PO QPM Other Notes If you have any questions please call us at [phone] or [phone] or [phone] or [phone]
--- NOTE | 2021-11-02 10:27 | Anesthesiology Consultation ---
Date of Service November 02, 2021 Assessment & Plan (1) Encounter for pre-operative examination: - Cardiology office visit (05/25/21): "Chronic known unrevascularized distal RCA disease, small distal circumflex disease.. Hypertension--well controlled on current regimen.. History of pulmonary embolism status post IVC filter placed in the setting of subdural hematoma--stable INRs on Coumadin.. Mitral regurgitation--moderate 05/2020.. Continues to do well from a cardiac standpoint. Exercising regularly. Stable anginal symptoms reduced from last visit. Essentially CCS class I on current 2 antianginals. No signs of heart failure on exam. Blood pressure well controlled. Last LDL excellent. Last echocardiogram 1 year ago showed stable moderate mitral regurgitation.. Repeat surveillance echo and follow-up in 1 year." - COVID screening: Per assessment on 11/02: No known COVID-19 positive contacts or current COVID-19 related symptoms. Travel screen- pt reports she will be staying in her second home in [place] 11/21-11/23. Patient vaccinated. Surgeon arranging preop COVID testing. Awaiting results. - Check coags AM DOS Chart Review Chart Review: Acceptable Risk for Surgery and Patient seen in Pre Admission Testing Teaching & Discussion Pre-Anesthesia Teaching/Discussion Notes: Instructed NPO after midnight before surgery,except medications with 15 cc of water. Medication instructions provided according to the PAT guidelines. History Surgery Operation Date: 12/07/21 07:00 Proposed Procedures p Left Total Knee Replacement - Escobar Alvarez MD Height/Weight Height: 5 ft 5.5 in Weight: 64.9 kg Allergies Allergy/AdvReac Type Severity Reaction Status Date / Time No Known Drug Allergies Allergy Unknown Verified 10/29/21 10:50 Medications Home Medications Medication Instructions Recorded Confirmed Last Taken calcium carbonate 600 mg-vitamin 1 tab PO DAILY@1200 tab 02/14/19 10/29/21 10/04/20 D3 20 mcg (800 unit) chewable tablet (Caltrate 600 plus D) multivitamin (Daily Multi-Vitamin) 1 tab PO DAILY@1200 10/31/19 10/29/21 10/04/20 acetaminophen 500 mg tablet 500 mg PO Q6H PRN 11/02/20 10/29/21 Unknown acetaminophen 650 mg 650 mg PO HS tab 11/02/20 10/29/21 Unknown tablet,extended release (Tylenol Arthritis Pain) alendronate 70 mg tablet (Fosamax) 70 mg PO WK #12 tab 12/15/20 10/29/21 Unknown qvyzcbos-vau-uuhpzc 5 mg-zeaxanth 1 cap PO QPM 01/06/21 10/29/21 Unknown 1 mg-bilberry 7.5 mg-herbal capsule (Xsilon Health Formula) nitroglycerin 0.2 mg/hr 1 patch TD Q24H #90 ea 04/30/21 10/29/21 Unknown transdermal 24 hour patch levothyroxine 100 mcg tablet 100 mcg PO HS #90 tab 05/31/21 10/29/21 Unknown warfarin 5 mg tablet See Rx Instructions PO UD #90 tab 06/02/21 10/29/21 Unknown aspirin 81 mg tablet,delayed 81 mg PO 3XWK tab 07/22/21 10/29/21 Unknown release carvedilol 6.25 mg tablet 3.125 mg PO BID #90 tab 09/16/21 10/29/21 Unknown atorvastatin 40 mg tablet 40 mg PO QPM #90 tab 10/04/21 10/29/21 Unknown Past Medical History Medical History Brain bleed Subdural hematoma s/p evacuation (12+ years ago) CAD (coronary artery disease) Chronic known unrevascularized distal RCA disease, small distal circumflex disease Coronary atherosclerosis of morongo coronary vessel Degenerative joint disease of wrist History of non-Hodgkin's lymphoma Hodgkin's lymphoma, dx 20 years ago, "under control" History of pulmonary embolism 12+ years ago status post IVC filter placed in the setting of subdural hematoma, now on coumadin HTN (hypertension) Hyperlipidemia Hypothyroidism MVP (mitral valve prolapse) MVP with moderate MR per 05/26/20 echo Myocardial Infarction Follows with Dr. Vital/[facility] Osteoarthritis Peripheral neuropathy Presence of IVC filter Primary cutaneous T-cell lymphoma Spinal stenosis Transient ischemic attack (TIA) Hx 6+ years ago, follows with neurology (Dr. Gaspar) Tremor Left hand Exercise / Class Metabolic Activity II 4-5 Yardwork/Stairs/Walk up hill Past Family History Family History Father Prostate cancer Heart disease Myocardial infarction Cancer Brother Prostate cancer Heart disease Myocardial infarction Other Coronary heart disease No family history of adverse response to anesthesia Denies family history of Ovarian cancer Breast cancer Lung cancer Colorectal cancer Past Surgical History Surgical History H/O: hysterectomy History of breast surgery removal of benign tissue on left History of cardiac cath x2-- last 2007 ([facility]/no stents) History of colonoscopy History of tonsillectomy and adenoidectomy Hx of appendectomy Hx of cholecystectomy S/P IVC filter Status post evacuation of subdural hematoma Past Anesthesia History No Hx of Anesthesia Complications and No Family Hx of Anesthesia Complications History of PONV No Hx of PONV and No Hx of Motion Sickness Social History Smoking Status: Never smoker Do You Dip or Chew Tobacco: No Hx Alcohol Use: Yes Alcohol type: wine alcohol intake frequency: holidays/special occasions only Hx Substance Use: No substance use type: does not use Review of Systems Patient denies chest pain, shortness of breath, dyspnea on exertion, fever, chills, cough, wheezing, palpitations. Physical Exam Vital Signs VITALS BP 123/68 P 74 TEMP 98.3 SP02 98%RA RESP 16 PHYSICAL Full cervical extension range of motion. Full TMJ range of motion. TMD 3 finger breaths Mallampati Score 4 Dentition: intact, several caps Lungs: clear throughout to auscultation Cardiac: regular rate and rhythm, no murmurs noted Spine: normal Carotid arteries: negative bruit Extremities: no edema Lab Results Anesthesia Preop Results Results Anesthesia Widget: WBC 6.20 K/uL (4.8-10.8) 11/02/21 Hgb 14.7 g/dL (12.0-16.0) 11/02/21 Hct 43.4 % (37-47) 11/02/21 Plt 236 K/uL (130-400) 11/02/21 Na 136 mmol/L (136-145) 11/02/21 K 3.9 mmol/L (3.5-5.1) 11/02/21 Cl 102 mmol/L (98-107) 11/02/21 CO2 30 mmol/L (21-32) 11/02/21 BUN 12 mg/dl (6-23) 11/02/21 Creat 0.69 mg/dl (0.6-1.2) 11/02/21 Glucose Level 91 mg/dl (70-99(Fasting)) 11/02/21 PT 20.3 Seconds (9.0-12.0) H 11/02/21 PTT 34.3 Seconds (21.0-31.0) H 11/02/21 INR 2.0 (0.9-1.1) H 11/02/21 Blood Type B Positive 11/02/21 Antibody Screen NEGATIVE 11/02/21 Testing Electrocardiogram Date: 11/02/21 NSR at 73bpm. LAD. RBBB. NS TWA. Chest X-Ray Date: 11/02/21 Findings: + NAD Echocardiogram Date: 05/26/20 LVEF 65 to 70%. No regional motion abnormalities. Mild concentric LVH. Mitral valve prolapse with moderate MR. Grade 2 diastolic dysfunction. Compared with prior study on 11/12/2018, no significant changes per report.
--- NOTE | 2021-12-04 17:36 | History and Physical Report ---
CHIEF COMPLAINT: Bilateral knee pain and discomfort, left side greater than right. HISTORY OF PRESENT ILLNESS: The patient is an 86-year-old white female who I had been following for several-years for bilateral knee pain and discomfort and degenerative joint disease. She continues t o be bothered by her knee pain. She describes global pain. The left side a bit worse than the right . She was scheduled for surgery in the past, but canceled due to COVID epidemic and COVID issues. S he would now like to reschedule. She is debilitated by pain and discomfort, weakness. She has got k nown back as well. does have a history of PE in the past and has IVC filter in place and on chronic Coumadin therapy. PAST MEDICAL HISTORY: Significant for: 1. Hypothyroidism. 2. Low back pain/sciatica/spinal stenosis. 3. Osteoarthritis. 4. Hodgkin's disease. 5. History of PE. PAST SURGICAL HISTORY: Includes: 1. Cholecystectomy. 2. Hysterectomy. 3. Subdural hematoma. 4. Multiple biopsies. ALLERGIES: None. CURRENT MEDICATIONS: Include: 1. Tylenol. 2. Fosamax. 3. Aspirin. 4. Atorvastatin. 5. Calcium. 6. Carvedilol. 7. Coumadin. 8. Nitroglycerin. 9. Multivitamin. 10. Levothyroxine. SOCIAL HISTORY: An 86-year-old white female. She lives here in [place]. Does not smoke. FAMILY HISTORY: Noncontributory. REVIEW OF SYSTEMS: Significant for DVT/PE on Coumadin. She had an IVC filter in place. Denies any current chest pain or shortness of breath. She tries to exercise regularly. No known bleeding probl ems. PHYSICAL EXAMINATION: GENERAL: Shows a pleasant, somewhat frail, elderly female. HEENT: Benign. NECK: Supple. No lymphadenopathy. LUNGS: Clear to auscultation. HEART: Regular rate and rhythm. ABDOMEN: Soft, nontender, nondistended. EXTREMITIES: Grossly neurovascularly intact except as follows. Examination of her left knee reveals the patient walks with slightly slowed shuffling type gait. She has got valgus deformity to her left knee, which is increased with weightbearing. Small knee effusi on. Range of motion 5-125. No instability. No pain with hip motion. Examination of the right knee reveals fairly neutral alignment. Minimal knee effusion. Mild tenderness medially. Range of motio n 0-125. X-RAYS: X-rays of both knees show bilateral knee DJD. On the left side, she has got complete loss o f her lateral joint space with a valgus deformity and subchondral sclerosis. The right side, she has got a little joint space remaining and more of a varus deformity and medial joint line ____. ASSESSMENT: A 66-year-old white female with advanced bilateral knee degenerative joint disease, left side worse than right. She has failed conservative treatment. She has got other medical issues as well including spinal stenosis and history of deep venous thrombosis/pulmonary embolism in the past w ith a filter in place and on chronic Coumadin treatment. We have had multiple discussions over the years. She would now like to proceed with knee replacement surgery. PLAN: The risks and benefits of this procedure were explained to the patient and include but not maldonado ited to DVT, PE, , infection, neurological injury, vascular injury, bleeding problem, pain, limi betty range of motion, stiffness, failure to relieve her symptoms, incomplete relief of symptoms, need for further surgery in the future, etc. The patient understands and desires to proceed. Informed co nsent was obtained. She is planning on being discharged to home using [facility] program. She needs to stop h er Coumadin 5 days preop. We will check her PT and INR in the morning of surgery. She has got an IV C filter in place. She will take her Carvedilol the morning of surgery as well. Job ID: [id number]
[~2021-12-07 08:15] MED LIST changes: +ACETAMINOPHEN 500 MG TAB PO SCH; -ASPI81TA28 PO; +BUPIVACAINE 0.25% 30 ML VIAL ONE; +BUPIVACAINE 0.5 % 5 MG/1 ML PF 10ML VIAL ONE; +BUPIVACAINE LIPOSOME/PF 266 MG, BUPIVACAINE/EPINEPHRINE 50 ML, SODIUM CHLORIDE 0.9% 30 ... INFIL SCH; -CALCTAB7 PO; -CARV6.252 PO; -CMD5 PO; +CeleBREX 200 MG CAP PO SCH; +DEXAMETHASONE SOD INJ 4 MG/ML VIAL ONE; +EPINEPHrine INJ 1 MG/ML AMP ONE; +FAMOTIDINE 20 MG TAB PO SCH; -LEVO100T PO; -LPT/40 PO; +LR 500ML BOLUS, THEN 15ML/HR IV SCH; -MULT-845 PO; +TRANEXAMIC ACID 1,000 MG **IV Intra-op IV SCH; -WARF5TAB7 PO; +ceFAZolin 2000MG 2,000 MG/15 ML SYR IV SCH
[2021-12-07] MEDS: LR 60ML/HR IV SCH ×2 (09:18→11:21)
[2021-12-07 09:19] LABS: Partial Thromboplastin Time 28.5 Seconds (21.0-31.0); Prothrombin Time 11.1 Seconds (9.0-12.0)
--- NOTE | 2021-12-07 09:24 | History & Physical Bridge Note ---
Date of Service December 07, 2021 History & Physical Bridge Note I have examined the patient, reviewed the History & Physical and in the interval since the performance of the History & Physical I have noted the following changes of clinical significance: no changes noted
[2021-12-07] MEDS ORDERED: MIDAZOLAM HCL 1 MG/ML 2ML VIAL ONE (09:47)
[2021-12-07] MEDS ORDERED: fentaNYL citrate 100 MCG/2 ML VIAL ONE (10:23)
[2021-12-07] MEDS ORDERED: PROPOFOL IV EMULSION 10 MG/ML 20 ML VIAL IV ONE (10:23)
[2021-12-07] MEDS ORDERED: fentaNYL citrate 100 MCG/2 ML VIAL IV PRN (11:21)
[2021-12-07] MEDS ORDERED: ATROPINE SULFATE 0.1 MG/ML 10ML SYR IV PRN (11:21)
[2021-12-07] MEDS ORDERED: ONDANSETRON INJ 2 MG/ML 2 ML VIAL IV PRN ×2 (11:21→15:15)
[2021-12-07] MEDS ORDERED: ePHEDrine sulfate 50 MG/ML AMP IV PRN (11:21)
[2021-12-07] MEDS ORDERED: BUPIVACAINE/EPINEPHRINE 0.25% 1:200,000 30 ML VIAL ONE (11:29)
[2021-12-07] MEDS ORDERED: SODIUM CHLORIDE 0.9% PF 50 ML VIAL ONE (11:29)
[2021-12-07] MEDS ORDERED: BUPIVACAINE LIPOSOME 1.3% 266 MG/20 ML VIAL ONE (11:30)
[2021-12-07] MEDS ORDERED: ONDANSETRON INJ 2 MG/ML 2 ML VIAL ONE (12:00)
[2021-12-07] MEDS ORDERED: DEXAMETHASONE SOD INJ 4 MG/ML VIAL ONE (12:00)
--- NOTE | 2021-12-07 13:36 | Operative Report ---
PG Post Operative Report Pre & Post Diagnosis Operation Date: 12/07/21 10:40 Pre-Op Diagnosis: Left Knee Advanced Degenerative Joint Disease Post-Op Diagnosis: Left Knee Advanced Degenerative Joint Disease I identified the patient and participated in the time-out.: Yes Procedure Operation Date: 12/07/21 10:40 Actual Procedures p Left Total Knee Replacement(Left) - Escobar Alvarez MD Surgeon Escobar Alvarez MD Scheduling Administrator Julian Muniz PA-C Estimated Blood Loss 50 Findings Consistent with Post-Op Diagnosis Operative findings revealed advanced left knee DJD. She had extensive grade 4 [id number] disease primarily involving the lateral compartment. She did have some grade 4 disease of the patellofemoral joint most severe at the patella itself. Slight valgus alignment to her knee. Small knee effusion. Fluids 700 cc Specimens Left knee sent for pathology Drains None Anesthesia Type General Regional Complications none Disposition Accompanied Patient To Recovery: No Indications Patient is an 86-year-old female with a several year history of bilateral knee pain discomfort left side greater than right. She been through extensive conservative treatment the past which became less successful over time. She had been scheduled for knee surgery several times but canceled due to COVID epidemic. She now elected proceed with surgical management. The left knee is bothering her more than the right. Description of Procedure Operative implants consist of: 1 Biomet Vanguard size 65 left posterior stabilized femoral component. 2. Biomet size 71 tibial tray. 3. 10 mm posterior stabilized polyethylene insert. 4. 31 x 8 all Paller patella. The patient was taken the operating, identified, placed on the operating table supine position protectors were properly padded. IV antibiotics tried by anesthesia team. A spinal anesthetic and been attempted in the holding area but unsuccessful. A block was placed. A general anesthetic was implemented. A left thigh tent was then placed. Left lower extremities then prepped and draped in usual sterile fashion. The left leg was elevated exsanguinated with use of an Esmarch and the tourniquet was set at 300 mmHg. An anterior posterior left knee was then performed through longitudinal incision centered over the patella. Sharp dissection was carried through subcutaneous tissue down the extensor mechanism. Medial parapatellar arthrotomy incision was made. Some subperiosteal dissection was carried out medially. The fat pad was resected from Neath patella tendon. The lateral patellofemoral ligament was released. Patella subluxated laterally and the knee was flexed. The osteophyte taken off distal femur. The ACL and PCL released from the distal femur and the tibia subluxated anteriorly. External tibial alignment jig was then placed in the interface of the tibia and adjusted 14 mm medially. Proximal tibial cut was made remove about 2 mm of bone from the medial side. The tibia was then sized to a size 71. We tried to maximize coverage due to her osteopenia. Attention then drawn the femur. The distal femur was entered with sharp drill. Intramedullary canal was suction. A left 5 degree valgus cutting guide was placed. Distal femoral cutting block was pinned in place but distal femoral cut was made to take an additional 3 mm bone off distal femur. The femur was then sized to a size 65. Did downsize almost an entire size. The AP cutting block was pinned parallel to the epicondylar axis which was 4 degrees of external rotation. The anterior cut, anterior chamfer, posterior cut, posterior chamfer cuts were made. The box cutting guide was placed in just slight lateral box cut was made. The knee was flexed. The remnants of the medial and lateral menisci were excised. The osteophytes were taken off the posterior aspect of the femur. A trial femoral component was placed. The tibial tray was pinned in maximum external rotation and the drill and stem punch used to create defect in proximal tibia for the tibial tray. Knee was then trialed and the 10 mm insert fit most appropriately. Attention drawn the patella. The patella was cleaned of all soft tissues. Patella thickness measured 20 mm in thickness was cut down to 13. Was sized to a size 31 patella. The lug holes were drilled for the 31 patella. The lateral osteophyte was removed. Patella button was placed. Knee was taken through range of motion patella tracked nicely with no thumbs test. Attention drawn to place the permanent components. All trial components were removed. Bone plug was placed in the distal femur limit blood loss. A double batch Palacos G cement was mixed. A Biomet Vanguard size 65 left posterior stabilized femoral component, size 71 tibial tray, a 10 mm posterior stabilized polyethylene insert, 31 x 8 all Paller patella then cemented in place. The knee was brought out into full extension total cement hardened. Final cement checkup then performed. The pericapsular tissues were injected with total 100 cc of a combination of 20 cc of Exparel, 30 cc normal saline, 50 cc of quarter percent Marcaine with epinephrine. Patient did receive 1 g tranexamic acid. The tourniquet was then let down for final turn time 49 minutes. Hemostasis reduced electrocautery. Extensor mechanism closed with combination 1 PDS suture #1 Vicryl suture in [id number] fashion. Extensor mechanism checked found to be intact the subcutaneous tissue then closed with 2 Dexon suture in buried interrupted fashion skin was closed skin jamar. Leg was then cleaned and dried and sterile dressing was Xeroform, 4 x 4's, sterile cast padding, Freeman bandage were applied. Patient then transferred to the recovery room in stable condition. The patient tolerated the procedure well and there were no complications. Julian Muniz, my physician music library assistant, was present for the entire procedure. His assistance was essential and required for appropriate patient positioning, prepping and draping, surgical exposure, performing the technical details of the operation, placement the implants, closure of the wound, and placement of the sterile bandage. I attest to the content of the Intraoperative Record and any orders documented therein. Any exceptions are noted below.
--- NOTE | 2021-12-07 14:00 | XRay Report ---
TWO VIEWS LEFT KNEE CLINICAL HISTORY: Postoperative examination. FINDINGS: AP and crosstable lateral portable views of the left knee are obtained. A left knee arthrop lasty is in near anatomic alignment. There has been undersurface remodeling of the patella. No acute fracture is seen. There are expected postoperative changes around the knee including skin clips, soft tissue edema, and subcutaneous gas. IMPRESSION: Expected postoperative changes status post left knee arthroplasty. No acute fracture is s een. ACT 112: Negative or not required by law. Electronically signed by: Jean Claude Tello M.D. 12/07/2021 1:59 PM
[2021-12-07] MEDS ORDERED: ALUMINUM/MAGNESIUM SUSP 30 ML UDC PO PRN (15:15)
[2021-12-07] MEDS ORDERED: NALOXONE HCL 0.4 MG/1 ML VIAL/CARP IV PRN (15:15)
[2021-12-07] MEDS ORDERED: METOCLOPRAMIDE HCL INJ 5 MG/ML 2 ML VIAL IV PRN (15:15)
[2021-12-07] MEDS ORDERED: traMADol HCL 50 MG TABLET PO PRN (15:15)
[2021-12-07] MEDS ORDERED: bisacodyL 10 MG SUPP PR PRN (15:15)
[2021-12-07] MEDS ORDERED: MAGNESIUM HYDROXIDE SUSP 30 ML UDC PO PRN (15:15)
[2021-12-07] MEDS ORDERED: HYDROmorphone INJ 0.5 MG/0.5 ML SYR IV PRN (15:15)
[2021-12-07] MEDS: SODIUM CHLORIDE 0.9% 1000ML 1,000 ML IV SCH ×2 (15:23→22:55)
--- NOTE | 2021-12-07 15:31 | Anesthesiology Progress Note ---
Date of Service December 07, 2021 Anesthesia Post Procedure Vital Signs Vital Signs: Temp Pulse Pulse Resp BP Pulse Ox O2 Del Method 12/07/21 15:10 36.7 C 76 16 128/66 96 Room Air 12/07/21 14:50 36.4 C L 71 14 116/66 94 Room Air 12/07/21 14:35 36.4 C L 75 14 120/64 94 Room Air 12/07/21 14:20 71 17 123/66 94 Room Air 12/07/21 14:05 36.8 C 76 12 126/65 94 Room Air 12/07/21 13:55 73 13 127/70 94 Room Air 12/07/21 13:45 69 12 119/66 99 Oxymask 12/07/21 13:35 68 12 128/70 100 Oxymask 12/07/21 13:28 36.5 C 76 14 135/78 96 Oxymask 12/07/21 08:56 36.6 C 65 20 129/73 99 Room Air O2 Flow Rate 12/07/21 15:10 12/07/21 14:50 12/07/21 14:35 12/07/21 14:20 12/07/21 14:05 12/07/21 13:55 12/07/21 13:45 5 12/07/21 13:35 5 12/07/21 13:28 5 12/07/21 08:56 Pain Intensity Left Knee: Pain Intensity: 2 Transfer of Care Handoff Completed per policy Notes Mental Status: alert / awake / arousable Patient Amnestic to Procedure: Yes Nausea / Vomiting: adequately controlled Pain: adequately controlled Airway Patency, RR, SpO2: stable & adequate BP & HR: stable & adequate Hydration State: stable & adequate Neuraxial Anesthesia: was administered and sensory block is resolving Anesthetic Complications: no major complications apparent and Pt Satisfied with anesthetic care
[2021-12-07] MEDS: KETOROLAC TROMETHAMINE 15 MG/ML VIAL IV SCH ×2 (16:59→21:14)
[2021-12-07] MEDS: ACETAMINOPHEN 500 MG TAB PO SCH ×2 (16:59→22:56)
[2021-12-07] MEDS: ASCORBIC ACID 500 MG TAB PO SCH (17:00)
--- NOTE | 2021-12-07 18:02 | Progress Notes ---
DATE OF SERVICE: 12/07/2021. SUBJECTIVE: An 86-year-old white female postoperative from a left knee replacement. She is doing pr merly well. Really not having any pain yet. No chest pain or shortness of breath. Not feeling dizzy or lightheaded. OBJECTIVE: VITAL SIGNS: Temperature 36.3. Vital signs are stable. GENERAL: Physical examination shows a pleasant, elderly female, sitting up in bed, eating dinner. L ooks comfortable. LUNGS: Clear to auscultation. HEART: Has a regular rate and rhythm. ABDOMEN: Soft, nontender, nondistended. EXTREMITIES: Grossly neurovascularly intact except as follows. Examination of the left knee and leg reveals that her leg to be well aligned. Dressing is clean, dry and intact. She is just starting to be able to move her toes a little bit. She has brisk refill. X-RAYS: X-rays of the left knee were reviewed from recovery room. It shows a cemented posterior sta bilized total knee arthroplasty. Components looked to be in good position. No signs of problems. ASSESSMENT: An 86-year-old white female postoperative from a left knee replacement, doing well. Her nerve function is just returning. PLAN: 1. DVT prophylaxis, thigh-high TEDs, SCDs and we will start her back on her Coumadin tonight. We wi ll get 27.5 mg tonight and tomorrow night and then resume her normal dose. 2. PT, OT, weightbear as tolerated. Left total knee protocol. 3. Pain control, doing okay with current pain regimen. 4. IV antibiotics x24 hours. 5. Disposition: Plan to discharge to home with some home health likely in the next day or two depsulma ding on how she responds to therapy and recovers medically. Job ID: [id number]
[2021-12-07] MEDS ORDERED: TRANEXAMIC ACID / 0.7% NACL 1,000 MG/100 ML BAG IV SCH (19:30)
[2021-12-07] MEDS: WARFARIN SOD 7.5 MG TAB PO SCH (19:43)
[2021-12-07] MEDS ORDERED: ATORVASTATIN 40 MG TAB PO SCH (21:00)
[2021-12-07] MEDS ORDERED: NON-FORMULARY MEDICATION (Mv-Mn-Lutein-Zeax-Bilber-Hb277 [Macular Health Formula] 5-1-7.5 PO SCH (21:00)
[2021-12-07] MEDS ORDERED: SENNA 8.6 MG TAB PO SCH (21:00)
[2021-12-07] MEDS ORDERED: LEVOTHYROXINE SODIUM 100 MCG TABLET PO SCH (21:00)
[2021-12-07] MEDS: ceFAZolin 1000MG 1,000 MG/7.5 ML SYR IV SCH (21:12)
[2021-12-07] MEDS: carvediloL 3.125 MG TAB PO SCH (21:13)
[2021-12-07] MEDS: DOCUSATE SODIUM 100 MG CAP PO SCH (21:13)
[2021-12-08] MEDS: KETOROLAC TROMETHAMINE 15 MG/ML VIAL IV SCH ×2 (04:00→09:58)
[2021-12-08] MEDS: ceFAZolin 1000MG 1,000 MG/7.5 ML SYR IV SCH (04:00)
[2021-12-08 06:50] LABS: INR 1.1 (0.9-1.1)
[2021-12-08 06:59] LABS: BUN Creatinine Ratio 26.8 (10-20); Calcium 8.4 mg/dl (8.5-10.1); Est GFR (Non-African American) 77.7 ml/min; Potassium 3.9 mmol/L (3.5-5.1)
[2021-12-08] MEDS ORDERED: dexAMETHasone 10 MG in SYRINGE 0 ML IV SCH (08:00)
[2021-12-08 08:16] LABS: Hematocrit (blood only) 36.5 % (34.1-44.9); Hemoglobin 12.6 g/dl (12.0-16.0); Mean Corpuscular Hemoglobin 31.1 pg (25.0-34.0); Mean Corpuscular Hgb Conc 34.5 g/dL (32.0-36.0); Mean Corpuscular Volume 90.1 fL (80.0-100.0); Mean Platelet Volume 9.9 fL (9.4-12.3); Platelet Count 193 K/uL (130-400); RDW Coefficient of Variation 12.6 % (11.5-14.5); RDW Standard Deviation 41.5 fL (36.4-46.3); Red Blood Count 4.05 M/uL (3.93-5.22)
[2021-12-08] MEDS: DOCUSATE SODIUM 100 MG CAP PO SCH (08:34)
[2021-12-08] MEDS: ASCORBIC ACID 500 MG TAB PO SCH (08:34)
[2021-12-08] MEDS: carvediloL 3.125 MG TAB PO SCH (08:34)
[2021-12-08] MEDS: ACETAMINOPHEN 500 MG TAB PO SCH (08:34)
[2021-12-08] MEDS ORDERED: DOCUSATE SODIUM/SENNA 50/8.6MG TAB PO SCH (09:00)
[2021-12-08] MEDS ORDERED: NITROGLYCERIN 0.2 MG/HR PATCH TD SCH (09:00)
[2021-12-08] MEDS ORDERED: MULTIVITAMIN TAB PO SCH (09:00)
[2021-12-08] MEDS ORDERED: NON-FORMULARY MEDICATION (Multivitamin [Daily Multi-Vitamin] tablet) PO SCH (12:00)
[2021-12-08] MEDS ORDERED: CALCIUM 600MG + VIT D 400 IU TAB PO SCH (12:00)
[2021-12-08] MEDS: WARFARIN SOD 7.5 MG TAB PO SCH (14:36)
--- NOTE | 2021-12-08 14:46 | Progress Notes ---
DATE OF SERVICE: 12/08/2021 SUBJECTIVE: An 86-year-old female postoperative day 1 from a left knee replacement. She is doing we ll. Pain is controlled. Therapy went pretty well. No chest pain or shortness of breath. Not feeli ng dizzy or lightheaded. OBJECTIVE: VITAL SIGNS: Temperature is 37.2. Vital signs are stable. PHYSICAL EXAMINATION: GENERAL: Shows a pleasant, elderly female. She is sitting up in bed and looks comfortable. EXTREMITIES: Examination of the left leg reveals the leg to be well aligned. Dressing is clean, dry and intact. She can dorsiflex and plantarflex her toes, but her dorsiflexion is a little bit weak. Good plantarflexion strength. LABORATORY DATA: Hemoglobin 12.6. Hematocrit 36.5. Electrolytes are stable. ASSESSMENT: An 86-year-old white female postoperative day 1 from a left knee replacement, doing reas onably well. Pain is controlled. She is a little bit weak with dorsiflexion, but can dorsiflex her toes. PLAN: 1. DVT prophylaxis includes thigh-high TEDs, SCDs, and she is back on her Coumadin. She will get 7. 5 mg before discharge today. 2. PT, OT, weightbear as tolerated. Left total knee protocol. 3. Pain control, doing okay with current pain regimen. Really not having much pain. 4. Disposition: Plan to discharge her home with some home health likely later today. Job ID: [id number]
[2021-12-08] MEDS ORDERED: WARFARIN SOD 7.5 MG TAB PO SCH (16:00)
--- NOTE | 2021-12-13 06:44 | Discharge Summary ---
Date of Service December 13, 2021 Discharge Data Procedures Performed Operation Date: 12/07/21 10:40 Actual Procedures p Left Total Knee Replacement(Left) - Escobar Alvarez MD Hospital Course (1) S/P total knee arthroplasty: This is a 86 year old patient admitted on 12/07/21 and underwent total knee arthroplasty. She tolerated the procedure well and there were no complications. Transferred to the PACU post op and later to the orthopedic floor for further care. She was given ancef for antibiotic prophylaxis. She was also given IVELISSE stockings, SCDs, and coumadin for DVT prophylaxis. Hemoglobin, hematocrit, and vital signs were monitored during her hospital stay and remained stable. Did not require any blood transfusions. There were no complications during her hospital stay. By post op day #1 the patient was tolerating a regular diet, pain was reasonably controlled with oral pain medicine, and she was participating in physical therapy. On post op day #1 the patient was discharged home and set up with home health care. She was given printed discharge instructions including prescriptions for extra strength tylenol, zofran, and tramadol. Continue physical therapy, weight bearing as tolerated. Continue IVELISSE stockings. Follow up approximately 2 weeks post op or sooner if there are problems or concerns. Coding Level of Care Code None Diagnoses S/P total knee arthroplasty Z96.659
== END 2021-12-08 15:41 | disposition home health service (06) ==
LOC: ASU 08:15 → PACUINP 08:15 → 3E 15:15
DX: M25.762 Osteophyte, left knee; M25.462 Effusion, left knee; Z79.890 Hormone replacement therapy; Z86.711 Personal history of pulmonary embolism; I25.2 Old myocardial infarction; I10 Essential (primary) hypertension; I25.10 Atherosclerotic heart disease of native coronary artery without angina pectoris; M17.12 Unilateral primary osteoarthritis, left knee; M65.862 Other synovitis and tenosynovitis, left lower leg; Z79.82 Long term (current) use of aspirin; E03.9 Hypothyroidism, unspecified; Z79.01 Long term (current) use of anticoagulants; Z79.899 Other long term (current) drug therapy; Z86.73 Personal history of transient ischemic attack (TIA), and cerebral infarction without residual deficits; E78.5 Hyperlipidemia, unspecified

== ENCOUNTER 2021-12-12 02:37 | Observation (INO) ==
--- NOTE | 2021-12-12 02:51 | Emergency Department Note ---
History of Present Illness General Chief complaint: Syncope Time Seen by Provider: 12/12/21 02:40 History of Present Illness This 86-year-old had a knee replacement 5 days ago on Coumadin presents to the ER complaining of syncope with low-grade fever Location: Generalized Quality: Weak Severity: Moderate Duration: Today Timing: Today Context: Patient passed out and EMS was summoned Modifying factors: better with rest; worse with activity Patient states she got up to go the bathroom got lightheaded and passed out. Patient states she feels weak and has a low-grade fever. This all started today. Patient denies chest pain, dyspnea, abdominal pain, knee pain, vomiting, diarrhea. She is having occasional cough. Home Medications Medication Instructions Recorded Confirmed Type calcium carbonate 600 mg-vitamin 1 tab PO DAILY@1200 02/14/19 12/12/21 History D3 20 mcg (800 unit) chewable tablet (Caltrate 600 plus D) multivitamin (Daily Multi-Vitamin) 1 tab PO DAILY@1200 10/31/19 12/12/21 History alendronate 70 mg tablet (Fosamax) 70 mg PO WK #12 tabs 12/15/20 12/12/21 Rx fcuvahcg-ehv-mpsdhr 5 mg-zeaxanth 1 cap PO QPM 01/06/21 12/12/21 History 1 mg-bilberry 7.5 mg-herbal capsule ([facility]able [facility] Formula) nitroglycerin 0.2 mg/hr 1 patch transdermal Q24H #90 ea 04/30/21 12/12/21 Rx transdermal 24 hour patch warfarin 5 mg tablet See Rx Instructions PO UD #90 tabs 06/02/21 12/12/21 Rx aspirin 81 mg tablet,delayed 81 mg PO 3XWK 07/22/21 12/12/21 History release carvedilol 6.25 mg tablet 3.125 mg PO BID #90 tabs 09/16/21 12/12/21 Rx atorvastatin 40 mg tablet 40 mg PO QPM #90 tabs 11/03/21 12/12/21 Rx levothyroxine 100 mcg tablet See Rx Instructions .Route 11/29/21 12/12/21 Rx .COMPLEX #90 tabs acetaminophen 500 mg capsule 1,000 mg PO TID Pain 30 days #180 12/06/21 12/12/21 Rx caps ondansetron HCl 4 mg tablet 4 mg PO Q6 PRN nausea #20 tabs 12/06/21 12/12/21 Rx sennosides 8.6 mg-docusate sodium 1 tab-cap PO DAILY #14 tabs 12/06/21 12/12/21 Rx 50 mg tablet (Senokot-S) tramadol 50 mg tablet 50 - 100 mg PO Q6H PRN pain #30 12/06/21 12/12/21 Rx tabs Allergies Allergy/AdvReac Type Severity Reaction Status Date / Time No Known Drug Allergies Allergy Unknown Unknown Verified 12/12/21 03:10 Past Med/Surg History Medical History Brain bleed Subdural hematoma s/p evacuation (12+ years ago) CAD (coronary artery disease) Chronic known unrevascularized distal RCA disease, small distal circumflex disease Coronary atherosclerosis of [place] coronary vessel Degenerative joint disease of wrist Encounter for pre-operative examination History of non-Hodgkin's lymphoma Hodgkin's lymphoma, dx 20 years ago, "under control" History of pulmonary embolism 12+ years ago status post IVC filter placed in the setting of subdural hematoma, now on coumadin HTN (hypertension) Hyperlipidemia Hypothyroidism MVP (mitral valve prolapse) MVP with moderate MR per 05/26/20 echo Myocardial Infarction Follows with Dr. Vital/[facility] [place] Osteoarthritis Peripheral neuropathy Presence of IVC filter Primary cutaneous T-cell lymphoma Spinal stenosis Transient ischemic attack (TIA) Hx 6+ years ago, follows with neurology (Dr. Gaspar) Tremor Left hand Surgical History H/O: hysterectomy History of breast surgery removal of benign tissue on left History of cardiac cath x2-- last 2007 ([facility]/no stents) History of colonoscopy History of tonsillectomy and adenoidectomy Hx of appendectomy Hx of cholecystectomy S/P IVC filter Status post evacuation of subdural hematoma Family History Father Prostate cancer Heart disease Myocardial infarction Cancer Brother Prostate cancer Heart disease Myocardial infarction Other Coronary heart disease No family history of adverse response to anesthesia Denies family history of Ovarian cancer Breast cancer Lung cancer Colorectal cancer Social History Smoking Status: Never smoker Second Hand Exposure: No; Hx Alcohol Use: Yes Alcohol type: wine Alcohol Intake Frequency: Monthly or Less Hx Substance Use: No Preferred Language: Algerian Communication Ability: Effective Visual Impairment: Limited Hearing Ability: Normal Meat Passer Required: No Beliefs That Will Affect Care: None marital status: / Current Living Situation: Alone current occupational status: retired How many Children do You have: 2 Feels Safe at Home: Yes Childhood Exposure to Second-Hand Smoke: Yes caffeine: Yes (sometimes) Dental Care, Regularly: Yes Physical Activity Frequency: 3-4 Times per Week Seatbelt Use: always Sunscreen Use: Yes Assistive Devices: Walker Review of Systems A total of 10 systems reviewed and were otherwise negative Physical Exam Vital Signs Vital Signs - 24 hr 12/12/21 02:41 12/12/21 03:10 12/12/21 03:46 Temperature 37.2 C Temperature Source Oral Pulse Rate 95 H Pulse Rate [Apical] 87 Respiratory Rate 21 20 Respiratory Effort / Characteristics Non-Labored Respiratory Depth Normal Respiratory Pattern Regular Blood Pressure 137/72 Blood Pressure [Right Arm] 134/64 Blood Pressure Mean 93 Blood Pressure Mean [Right Arm] 87 Blood Pressure Position Lying Pulse Oximetry 94 95 96 Oxygen Delivery Method Room Air Room Air Room Air Sepsis Recent Fever Within 48 Hours Yes Sepsis New/Unexplained Change in Mental Status No Sepsis Action Taken by Nursing No Action Required 12/12/21 03:46 12/12/21 03:48 Temperature Temperature Source Pulse Rate 88 Pulse Rate [Apical] Respiratory Rate Respiratory Effort / Characteristics Non-Labored Spontaneous Respiratory Depth Respiratory Pattern Blood Pressure Blood Pressure [Right Arm] Blood Pressure Mean Blood Pressure Mean [Right Arm] Blood Pressure Position Pulse Oximetry 97 Oxygen Delivery Method Room Air Sepsis Recent Fever Within 48 Hours Sepsis New/Unexplained Change in Mental Status Sepsis Action Taken by Nursing VITALS: Vitals are noted on the nurse's note and reviewed by myself. Vital signs stable. GENERAL: Pleasant elderly female, in no acute distress, nondiaphoretic, well- developed well-nourished. SKIN: Left knee incisional site intact without signs of infection, the rest of the skin was without rashes, erythema, edema, or bruising. There is no tenting of the skin. Capillary reflex less than 2 seconds. HEAD: Normocephalic atraumatic. EARS: External auditory canals clear, EYES: Pupils equal round and reactive to light and accommodation. Conjunctivae without injection, sclerae without icterus. Extraocular movements intact. NOSE: Patent, turbinates without inflammation or discharge. MOUTH: Mucous membranes moist. Pharynx without erythema or exudate. Uvula midline. Airway patent. Tongue does not deviate. NECK: Supple without nuchal rigidity. No lymphadenopathy. No thyromegaly. Cervical spine is nontender. No JVD. HEART: Regular rate and rhythm LUNGS: Clear to auscultation bilaterally without wheezes, rales or rhonchi. No retractions or accessory muscle use. ABDOMEN: Positive bowel sounds x 4. Normal tympanic percussion. Soft, nontender, without masses or organomegaly. Alegre sign negative. No guarding or rebound tenderness. No CVA tenderness MUSCULOSKELETAL: No muscle atrophy noted. NEURO: Patient was alert and oriented to person place and time. Normal sensation to light and sharp touch. No focal neurological deficits. Course Administered Medications Discontinued Medications Sodium Chloride (Nss 1000ml) 1,000 mls @ 999 mls/hr IV .Q1H1M EDISON Stop: 12/12/21 04:00 Last Admin: 12/12/21 03:31 Dose: 999 mls/hr Documented By: MARGY Medical Decision Making Medical Records Attestation: I reviewed the patient's medical records. Home Medications Current Medication List: was personally reviewed by me Laboratory Data Attestation: I reviewed the patient's lab results. Result diagrams: 12/12/21 03:01 12/12/21 03:01 Lab Results 12/12/21 12/12/21 12/12/21 Range/Units 03:01 03:01 03:01 WBC 12.99 H (4.8-10.8) K/ul RBC 4.01 (3.93-5.22) M/uL Hgb 12.6 (12.0-16.0) g/dl Hct 36.7 (34.1-44.9) % MCV 91.5 (80.0-100.0) fL MCH 31.4 (25.0-34.0) pg MCHC 34.3 (32.0-36.0) g/dL RDW Std Deviation 43.3 (36.4-46.3) fL RDW Coeff of Jhonathan 12.9 (11.5-14.5) % Plt Count 228 (130-400) K/uL MPV 9.4 (9.4-12.3) fL Immature Gran % (Auto) 0.3 % Neut % (Auto) 86.2 % Lymph % (Auto) 5.5 % [place] % (Auto) 6.9 % Eos % (Auto) 0.9 % Baso % (Auto) 0.2 % Neut # (Auto) 11.20 H (1.4-6.5) K/uL Lymph # (Auto) 0.72 L (1.2-3.4) K/uL [place] # (Auto) 0.89 H (0.24-0.82) K/uL Eos # (Auto) 0.12 (0-0.50) K/uL Baso # (Auto) 0.02 (0-0.2) K/uL Immature Gran # (Auto) 0.04 H (0.00-0.02) K/uL PT (9.0-12.0) Seconds INR (0.9-1.1) APTT (21.0-31.0) Seconds PTT Ratio Sodium 133 L (136-145) mmol/L Potassium 4.0 (3.5-5.1) mmol/L Chloride 98 (98-107) mmol/L Carbon Dioxide 27 (21-32) mmol/L Anion Gap 8 (3-11) BUN 12 (6-23) mg/dl Creatinine 0.59 L (0.6-1.2) mg/dl Est Cr Clr Drug Dosing Not Reportable Est GFR ( Amer) 96.9 ml/min Est GFR (Non-Af Amer) 83.6 ml/min BUN/Creatinine Ratio 20.3 H (10-20) Glucose 125 H (70-99(Fasting)) mg/dl Lactate 0.8 (0.4-2.0) mmol/L Calcium 9.1 (8.5-10.1) mg/dl Magnesium 1.7 (1.7-2.4) mg/dl Total Bilirubin 2.4 H (0.2-1.0) mg/dl AST 22 (13-39) U/L ALT 14 (7-52) U/L Alkaline Phosphatase 39 (34-104) U/L Troponin I High Sens 6.1 (0-14) pg/ml Total Protein 6.5 (6.0-8.3) gm/dl Albumin 3.8 (3.4-5.0) gm/dl Globulin 2.7 (2.5-4.0) gm/dl Albumin/Globulin Ratio 1.4 (0.9-2) Urine Color Urine Appearance (Clear) Urine pH (4.5-7.5) Ur Specific [place] (1.000-1.030) Urine Protein (Negative) Urine Glucose (UA) (Negative) Urine Ketones (Negative) Urine Blood (Negative) Urine Nitrite (Negative) Urine Bilirubin (Negative) Urine Urobilinogen (Negative) Ur Leukocyte Esterase (Negative) SARS-CoV-2 (PCR) SARS-CoV-2, RNA, NAAT (NEGATIVE) 12/12/21 12/12/21 12/12/21 Range/Units 03:12 03:12 03:46 WBC (4.8-10.8) K/ul RBC (3.93-5.22) M/uL Hgb (12.0-16.0) g/dl Hct (34.1-44.9) % MCV (80.0-100.0) fL MCH (25.0-34.0) pg MCHC (32.0-36.0) g/dL RDW Std Deviation (36.4-46.3) fL RDW Coeff of Jhonathan (11.5-14.5) % Plt Count (130-400) K/uL MPV (9.4-12.3) fL Immature Gran % (Auto) % Neut % (Auto) % Lymph % (Auto) % [place] % (Auto) % Eos % (Auto) % Baso % (Auto) % Neut # (Auto) (1.4-6.5) K/uL Lymph # (Auto) (1.2-3.4) K/uL [place] # (Auto) (0.24-0.82) K/uL Eos # (Auto) (0-0.50) K/uL Baso # (Auto) (0-0.2) K/uL Immature Gran # (Auto) (0.00-0.02) K/uL PT 33.5 H (9.0-12.0) Seconds INR 3.4 H (0.9-1.1) APTT 42.2 H (21.0-31.0) Seconds PTT Ratio 1.5 Sodium (136-145) mmol/L Potassium (3.5-5.1) mmol/L Chloride (98-107) mmol/L Carbon Dioxide (21-32) mmol/L Anion Gap (3-11) BUN (6-23) mg/dl Creatinine (0.6-1.2) mg/dl Est Cr Clr Drug Dosing Est GFR ( Amer) ml/min Est GFR (Non-Af Amer) ml/min BUN/Creatinine Ratio (10-20) Glucose (70-99(Fasting)) mg/dl Lactate (0.4-2.0) mmol/L Calcium (8.5-10.1) mg/dl Magnesium (1.7-2.4) mg/dl Total Bilirubin (0.2-1.0) mg/dl AST (13-39) U/L ALT (7-52) U/L Alkaline Phosphatase (34-104) U/L Troponin I High Sens (0-14) pg/ml Total Protein (6.0-8.3) gm/dl Albumin (3.4-5.0) gm/dl Globulin (2.5-4.0) gm/dl Albumin/Globulin Ratio (0.9-2) Urine Color Urine Appearance (Clear) Urine pH (4.5-7.5) Ur Specific [place] (1.000-1.030) Urine Protein (Negative) Urine Glucose (UA) (Negative) Urine Ketones (Negative) Urine Blood (Negative) Urine Nitrite (Negative) Urine Bilirubin (Negative) Urine Urobilinogen (Negative) Ur Leukocyte Esterase (Negative) SARS-CoV-2 (PCR) Cancelled SARS-CoV-2, RNA, NAAT POSITIVE A* (NEGATIVE) 12/12/21 Range/Units 04:00 WBC (4.8-10.8) K/ul RBC (3.93-5.22) M/uL Hgb (12.0-16.0) g/dl Hct (34.1-44.9) % MCV (80.0-100.0) fL MCH (25.0-34.0) pg MCHC (32.0-36.0) g/dL RDW Std Deviation (36.4-46.3) fL RDW Coeff of Jhonathan (11.5-14.5) % Plt Count (130-400) K/uL MPV (9.4-12.3) fL Immature Gran % (Auto) % Neut % (Auto) % Lymph % (Auto) % [place] % (Auto) % Eos % (Auto) % Baso % (Auto) % Neut # (Auto) (1.4-6.5) K/uL Lymph # (Auto) (1.2-3.4) K/uL [place] # (Auto) (0.24-0.82) K/uL Eos # (Auto) (0-0.50) K/uL Baso # (Auto) (0-0.2) K/uL Immature Gran # (Auto) (0.00-0.02) K/uL PT (9.0-12.0) Seconds INR (0.9-1.1) APTT (21.0-31.0) Seconds PTT Ratio Sodium (136-145) mmol/L Potassium (3.5-5.1) mmol/L Chloride (98-107) mmol/L Carbon Dioxide (21-32) mmol/L Anion Gap (3-11) BUN (6-23) mg/dl Creatinine (0.6-1.2) mg/dl Est Cr Clr Drug Dosing Est GFR ( Amer) ml/min Est GFR (Non-Af Amer) ml/min BUN/Creatinine Ratio (10-20) Glucose (70-99(Fasting)) mg/dl Lactate (0.4-2.0) mmol/L Calcium (8.5-10.1) mg/dl Magnesium (1.7-2.4) mg/dl Total Bilirubin (0.2-1.0) mg/dl AST (13-39) U/L ALT (7-52) U/L Alkaline Phosphatase (34-104) U/L Troponin I High Sens (0-14) pg/ml Total Protein (6.0-8.3) gm/dl Albumin (3.4-5.0) gm/dl Globulin (2.5-4.0) gm/dl Albumin/Globulin Ratio (0.9-2) Urine Color Yellow Urine Appearance Clear (Clear) Urine pH 7.5 (4.5-7.5) Ur Specific [place] 1.014 (1.000-1.030) Urine Protein Negative (Negative) Urine Glucose (UA) Negative (Negative) Urine Ketones 1+ H (Negative) Urine Blood Negative (Negative) Urine Nitrite Negative (Negative) Urine Bilirubin Negative (Negative) Urine Urobilinogen Negative (Negative) Ur Leukocyte Esterase Negative (Negative) SARS-CoV-2 (PCR) SARS-CoV-2, RNA, NAAT (NEGATIVE) Imaging Data Attestation: I personally reviewed and interpreted this imaging study as follows: MDM Narrative Prior records/ancillary studies reviewed. Triage Nursing notes reviewed. Additional history obtained from EMS. The patient's history was concerning for syncope. Differential diagnosis: Etiologies such as vasovagal event, infection, hypoglycemia, electrolyte abnormalities, cardiac sources, intracerebral event, toxicologic, neurologic, as well as others were entertained. Physical examination: As above ER treatment provided: IV hydration with normal saline On reassessment the patient felt better. An order was placed for continuous cardiac monitoring. The monitor shows a rate of 50-100 with a sinus rhythm. Diagnostics interpretation by me: ECG: Ordered for syncope EKG: Normal sinus, left axis, right bundle, no acute ST-T wave changes, poor baseline. Impression normal sinus rhythm with a right bundle branch block left axis deviation rate of 93 interpreted by myself I think arrhythmia is unlikely. EKG shows no interval abnormalities such as QT prolongation or WPW. There are no findings to suggest Brugada syndrome. Cardiac monitoring in the emergency department reveals no tachycardic or bradycardic dysrhythmia. Hypertrophic cardiomyopathy was considered but there are no clear historical elements pointing toward this. EKG is not suggestive. The QRS voltage is not extremely large and there are no suggestive Q waves. The labs revealed leukocytosis Blood cultures pending Supratherapeutic INR, negative urine Positive COVID Imaging studies: Preliminary Findings Only See Final Report For Complete Findings CT HEAD: No evidence of acute intracranial pathology. Mild nonspecific white matter changes. Bilateral lens replacements. Comparison made to prior head CT from July 21, 2021. CT C SPINE: No evidence of acute cervical spine pathology. Moderate disc degeneration at C5-6 and C6-7. Remote superior endplate fracture deformities of C7, T1 and T2. Mild to moderate calcified atherosclerotic disease of the carotid bifurcations. Severe spinal canal stenosis at C4-5 and moderate spinal canal stenosis at C5-6. Pleural parenchymal scarring of the lung apices with calcifications. Comparison made to prior CT scan cervical spine from July 21, 2021. Radiologist: Flori Fitzgerald MD Chest x-ray with no acute consolidation, pneumothorax or free air per my interpretation Consultation: A consultation was placed with the hospitalist. The case was discussed and diagnostics were reviewed. The patient was evaluated in the ER for further treatment. This appears to be consistent with syncope and COVID. Patient was neurovascularly and neurologically intact. Imaging was negative. She will be evaluated for by medicine for admission. By the evaluation outlined above emergent etiologies such as hypoglycemia, electrolyte abnormalities, cardiac sources, intracerebral event, toxicologic, neurologic,as well as others were deemed relatively unlikely. The pt informed about the findings as listed above. All questions were answered and pleased with the treatment. The chart was completed utilizing [employer] Speech voice recognition software. Grammatical errors, random word insertions, pronoun errors, and incomplete sentences are an occassional consequence of this system due to software limitations, ambient noise, and hardware issues. Any formal questions or concerns about the content, text, or information contained within the body of this dictation should be directly addressed to the physician student assistant for clarification. Impression & Plan Syncope, COVID-19, Supratherapeutic INR Discharge Plan Visit Data Chief Complaint: Syncope ED Provider: Felipa Aquino ED Midlevel Provider: Tory Gottlieb Discharge Problem: Syncope, COVID-19, Supratherapeutic INR Patient Disposition: Admitted As Inpatient Condition: Fair Forms Stand Alone Forms: [facility] Prescriptions Prescriptions: No Action Caltrate 600 plus D 600 mg (1,500 mg)-800 unit tablet,chewable 1 tab PO DAILY@1200 aspirin 81 mg tablet,delayed release (DR/EC) 81 mg PO 3XWK alendronate [Fosamax] 70 mg tablet 70 mg PO WK Qty: 12 3RF nitroglycerin 0.2 mg/hr patch 24 hour 1 patch TD Q24H Qty: 90 3RF warfarin 5 mg tablet See Rx Instructions PO UD Qty: 90 3RF Rx Instructions: 2.5mg q Mel[place]/We, 5mg x 5d per [facility] PO use as directed; carvedilol 6.25 mg tablet 3.125 mg PO BID Qty: 90 3RF atorvastatin 40 mg tablet 40 mg PO QPM Qty: 90 3RF Rx Instructions: TAKE 1 TABLET DAILY levothyroxine 100 mcg tablet See Rx Instructions .ROUTE .COMPLEX Qty: 90 3RF Dose Instruction: TAKE 1 TABLET AT BEDTIME Rx Instructions: TAKE 1 TABLET AT BEDTIME tramadol 50 mg tablet 50 - 100 mg PO Q6H PRN (Reason: pain) Qty: 30 0RF Rx Instructions: Take as needed for Pain. ondansetron HCl 4 mg tablet 4 mg PO Q6 PRN (Reason: nausea) Qty: 20 1RF acetaminophen 500 mg capsule 1,000 mg PO TID 30 Days Qty: 180 0RF Rx Instructions: Take 3 times per day to lessen pain. sennosides-docusate sodium [Senokot-S] 8.6-50 mg tablet 1 tab-cap PO DAILY Qty: 14 0RF Rx Instructions: Take daily to prevent constipation multivitamin [Daily Multi-Vitamin] Tablet 1 tab PO DAILY@1200 [facility] Formula 5-1-7.5 mg Capsule 1 cap PO QPM Referrals Referrals: Jason Spangler MD [Primary Care Provider] -
[2021-12-12] MEDS ORDERED: SODIUM CHLORIDE 0.9% 1000ML 1,000 ML IV SCH (03:00)
[2021-12-12 03:15] LABS: Basophils # (auto) 0.02 K/uL (0-0.2); Basophils % (auto) 0.2 %; Eosinophils # (auto) 0.12 K/uL (0-0.50); Eosinophils % (auto) 0.9 %; Hematocrit (blood only) 36.7 % (34.1-44.9); Hemoglobin 12.6 g/dl (12.0-16.0); Immature Granulocytes # (auto) 0.04 K/uL (0.00-0.02); Immature Granulocytes % (auto) 0.3 %; Lymphocytes # (auto) 0.72 K/uL (1.2-3.4); Lymphocytes % (auto) 5.5 %; Mean Corpuscular Hemoglobin 31.4 pg (25.0-34.0); Mean Corpuscular Hgb Conc 34.3 g/dL (32.0-36.0); Mean Corpuscular Volume 91.5 fL (80.0-100.0); Mean Platelet Volume 9.4 fL (9.4-12.3); Monocytes # (auto) 0.89 K/uL (0.24-0.82); Monocytes % (auto) 6.9 %; Neutrophils % (auto) 86.2 %; Platelet Count 228 K/uL (130-400); RDW Coefficient of Variation 12.9 % (11.5-14.5); RDW Standard Deviation 43.3 fL (36.4-46.3); Red Blood Count 4.01 M/uL (3.93-5.22); White Blood Count 12.99 K/ul (4.8-10.8)
--- NOTE | 2021-12-12 03:43 | Emergency Department Note ---
ED Visit Note I agree with the diagnosis and management decisions and have been personally involved in the case. Please see Ly Gottlieb PA-C's notes for further details of the history, physical and visit. .
[2021-12-12 03:51] LABS: Troponin I High Sensitivity 6.1 pg/ml (0-14)
[2021-12-12 03:59] LABS: Alanine Aminotransferase 14 U/L (7-52); Albumin Globulin Ratio 1.4 (0.9-2); Albumin Level 3.8 gm/dl (3.4-5.0); Alkaline Phosphatase 39 U/L (34-104); Anion Gap 8 (3-11); Aspartate Aminotransferase 22 U/L (13-39); BUN Creatinine Ratio 20.3 (10-20); Bilirubin,Total 2.4 mg/dl (0.2-1.0); Blood Urea Nitrogen 12 mg/dl (6-23); Calcium 9.1 mg/dl (8.5-10.1); Carbon Dioxide 27 mmol/L (21-32); Chloride 98 mmol/L (98-107); Est GFR (African American) 96.9 ml/min; Est GFR (Non-African American) 83.6 ml/min; Globulin 2.7 gm/dl (2.5-4.0); Glucose 125 mg/dl (70-99(Fasting)); Magnesium 1.7 mg/dl (1.7-2.4); Sodium 133 mmol/L (136-145); Total Protein 6.5 gm/dl (6.0-8.3)
[2021-12-12 04:09] LABS: INR 3.4 (0.9-1.1); Partial Thromboplastin Ratio 1.5; Partial Thromboplastin Time 42.2 Seconds (21.0-31.0); Prothrombin Time 33.5 Seconds (9.0-12.0)
[2021-12-12 04:14] LABS: Appearance Urine Clear (Clear); Bilirubin Urine Negative (Negative); Blood Urine Negative (Negative); Color Urine Yellow; Glucose Urine UA Negative (Negative); Ketones Urine 1+ (Negative); Leukocyte Esterase Urine Negative (Negative); Nitrite Urine Negative (Negative); Protein Urine Negative (Negative); Specific Gravity Urine 1.014 (1.000-1.030); Urobilinogen Urine Negative (Negative); pH Urine 7.5 (4.5-7.5)
--- NOTE | 2021-12-12 05:18 | History & Physical Report ---
Date of Service December 12, 2021 Assessment & Plan (1) Syncope: Plan: Syncope, micturition- Likely associated with generalized weakness post left total knee arthroplasty 3 days ago May be an element of generalized weakness from otherwise asymptomatic COVID-19 infection Admit for observation to monitored bed (2) Supratherapeutic INR: Plan: INR 3.4 on admission Hold warfarin Recheck INR at noon today and then every morning (3) COVID-19: Plan: Overall asymptomatic, may be an element of generalized fatigue, but only minimal head neck congestion Dexamethasone 4 mg p.o. every morning Vitamin D 5000 international units p.o. every morning Guaifenesin extended release 12 mg p.o. twice daily Zinc sulfate 200 mg p.o. every morning Try to treat somewhat on the provided basis due to recent physiologic stressors of surgery May consider prescription for Paxlovid as an outpatient (4) S/P total knee arthroplasty: Plan: Consult PT/OT while patient is in hospital (5) Hyperlipidemia: Plan: Continue atorvastatin 40 mg every evening (6) HTN (hypertension): Plan: Continue aspirin, carvedilol, nitroglycerin transdermal patch. 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 difficile colitis, TIA, chronic anticoagulation with warfarin, hyperlipidemia, hypertension, hypothyroidism, peripheral neuropathy, presence of IVC filter, and primary cutaneous T-cell lymphoma. She underwent an uneventful left total knee arthroplasty by Dr. Alvarez during hospitalization from 12/07- 12/08/2021. She was at home with family, who have been taking care of her, and reports that she had been doing well until she got up to urinate in the middle the night this evening, and passed out while on the commode. She did not hit her head and she has no other complaints of bodily injury. Significant abnormal laboratories: WBC 12.99, hemoglobin 12.6, hematocrit 36.7, sodium 133, INR 3.4, glucose 125, total bilirubin 2.4. Patient is COVID-19 positive. Her main symptom that she complains about is that of feeling generally weak. Allergies Allergy/AdvReac Type Severity Reaction Status Date / Time No Known Drug Allergies Allergy Unknown Unknown Verified 12/12/21 03:10 Home Medications Medication Instructions Recorded Confirmed Type calcium carbonate 600 mg-vitamin 1 tab PO DAILY@1200 02/14/19 12/12/21 History D3 20 mcg (800 unit) chewable tablet (Caltrate 600 plus D) multivitamin (Daily Multi-Vitamin) 1 tab PO DAILY@1200 10/31/19 12/12/21 History alendronate 70 mg tablet (Fosamax) 70 mg PO WK #12 tabs 12/15/20 12/12/21 Rx vzqgxbpd-ptd-rapzum 5 mg-zeaxanth 1 cap PO QPM 01/06/21 12/12/21 History 1 mg-bilberry 7.5 mg-herbal capsule ([employer] Formula) nitroglycerin 0.2 mg/hr 1 patch transdermal Q24H #90 ea 04/30/21 12/12/21 Rx transdermal 24 hour patch warfarin 5 mg tablet See Rx Instructions PO UD #90 tabs 06/02/21 12/12/21 Rx aspirin 81 mg tablet,delayed 81 mg PO 3XWK 07/22/21 12/12/21 History release carvedilol 6.25 mg tablet 3.125 mg PO BID #90 tabs 09/16/21 12/12/21 Rx atorvastatin 40 mg tablet 40 mg PO QPM #90 tabs 11/03/21 12/12/21 Rx levothyroxine 100 mcg tablet See Rx Instructions .Route 11/29/21 12/12/21 Rx .COMPLEX #90 tabs acetaminophen 500 mg capsule 1,000 mg PO TID Pain 30 days #180 12/06/21 12/12/21 Rx caps ondansetron HCl 4 mg tablet 4 mg PO Q6 PRN nausea #20 tabs 12/06/21 12/12/21 Rx sennosides 8.6 mg-docusate sodium 1 tab-cap PO DAILY #14 tabs 12/06/21 12/12/21 Rx 50 mg tablet (Senokot-S) tramadol 50 mg tablet 50 - 100 mg PO Q6H PRN pain #30 12/06/21 12/12/21 Rx tabs Past Med/Surg History Medical History Brain bleed Subdural hematoma s/p evacuation (12+ years ago) CAD (coronary artery disease) Chronic known unrevascularized distal RCA disease, small distal circumflex disease Coronary atherosclerosis of [place] coronary vessel Degenerative joint disease of wrist Encounter for pre-operative examination History of non-Hodgkin's lymphoma Hodgkin's lymphoma, dx 20 years ago, "under control" History of pulmonary embolism 12+ years ago status post IVC filter placed in the setting of subdural hematoma, now on coumadin HTN (hypertension) Hyperlipidemia Hypothyroidism MVP (mitral valve prolapse) MVP with moderate MR per 05/26/20 echo Myocardial Infarction Follows with Dr. Vital/YARELI Osteoarthritis Peripheral neuropathy Presence of IVC filter Primary cutaneous T-cell lymphoma Spinal stenosis Transient ischemic attack (TIA) Hx 6+ years ago, follows with neurology (Dr. Gaspar) Tremor Left hand Surgical History H/O: hysterectomy History of breast surgery removal of benign tissue on left History of cardiac cath x2-- last 2007 ([facility]/no stents) History of colonoscopy History of tonsillectomy and adenoidectomy Hx of appendectomy Hx of cholecystectomy S/P IVC filter Status post evacuation of subdural hematoma Family History Father Prostate cancer Heart disease Myocardial infarction Cancer Brother Prostate cancer Heart disease Myocardial infarction Other Coronary heart disease No family history of adverse response to anesthesia Denies family history of Ovarian cancer Breast cancer Lung cancer Colorectal cancer Social History Smoking Status: Never smoker Second Hand Exposure: No; Hx Alcohol Use: No Hx Substance Use: No Preferred Language: Ukrainian Communication Ability: Effective Visual Impairment: Limited Hearing Ability: Normal 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 Required: No Beliefs That Will Affect Care: None marital status: / Current Living Situation: Alone Current Living Situation Comment: family lives near by current occupational status: retired How many Children do You have: 2 Other Information That Helps Us Care for You: No Feels Safe at Home: Yes Safety Concerns: Feels Safe At This Time Childhood Exposure to Second-Hand Smoke: Yes caffeine: Yes (sometimes) Dental Care, Regularly: Yes Physical Activity Frequency: 3-4 Times per Week Seatbelt Use: always Sunscreen Use: Yes Assistive Devices: None and Walker Review of Systems Review of Systems: The patient denies chest pain, palpitations, shortness of breath, dyspnea on exertion, cough, lower extremity swelling, sore throat, fevers, chills, sweats, nausea, vomiting, diarrhea , constipation, abdominal pain, pelvic pain, blood in urine or stool, dysuria, urinary frequency or urgency, lightheadedness, dizziness, headache, rash, abnormal bruising or bleeding, imbalance, focal or generalized weakness, numbness or tingling in arms, generalized arthralgias or myalgias, back or neck pain, or night sweats. The review of systems is otherwise negative other than for that already noted above, and at least 10 systems have been reviewed. Physical Exam Physical Exam: The patient is awake, alert and oriented 3, well developed and well nourished, normocephalic and atraumatic, lying in bed and in no acute distress. HEENT--PERRL, EOMI, mucous membranes and oropharynx normal. Neck--supple. No JVD. No bruits. Thyroid normal, trachea midline, no adenopathy. Heart--normal S1 and S2. No murmurs, rubs or gallops. Lungs--clear bilaterally, no respiratory distress, no accessory muscle use. Abdomen--normal bowel sounds and soft. Nontender. Nondistended, no hernias or masses, no organomegaly. Extremities--no cyanosis or clubbing. No edema. Dermatologic--normal skin turgor, normal color, no abnormal lymph nodes, no rash. Neurologic--cranial nerves II through XII grossly intact. Rheumatologic--limitation postop left knee Psychiatric--normal affect. Results & Data Results & Data ([facility]) Vital Signs (Past 12 Hours) Vital Signs Temp Pulse Pulse Resp BP BP Pulse Ox 12/12/21 04:30 90 22 143/77 H 96 12/12/21 03:48 88 97 12/12/21 03:46 96 12/12/21 03:10 87 20 134/64 95 12/12/21 02:41 37.2 C 95 H 21 137/72 94 O2 Del Method 12/12/21 04:30 12/12/21 03:48 Room Air 12/12/21 03:46 Room Air 12/12/21 03:10 Room Air 12/12/21 02:41 Room Air Laboratory Results Laboratory Results WBC 12.99 K/ul (4.8-10.8) H 12/12/21 03:01 RBC 4.01 M/uL (3.93-5.22) 12/12/21 03:01 Hgb 12.6 g/dl (12.0-16.0) 12/12/21 03:01 Hct 36.7 % (34.1-44.9) 12/12/21 03:01 MCV 91.5 fL (80.0-100.0) 12/12/21 03:01 MCH 31.4 pg (25.0-34.0) 12/12/21 03:01 MCHC 34.3 g/dL (32.0-36.0) 12/12/21 03:01 RDW Std Deviation 43.3 fL (36.4-46.3) 12/12/21 03:01 RDW Coeff of Jhonathan 12.9 % (11.5-14.5) 12/12/21 03:01 Plt Count 228 K/uL (130-400) 12/12/21 03:01 MPV 9.4 fL (9.4-12.3) 12/12/21 03:01 Immature Gran % (Auto) 0.3 % 12/12/21 03:01 Neut % (Auto) 86.2 % 12/12/21 03:01 Lymph % (Auto) 5.5 % 12/12/21 03:01 [place] % (Auto) 6.9 % 12/12/21 03:01 Eos % (Auto) 0.9 % 12/12/21 03:01 Baso % (Auto) 0.2 % 12/12/21 03:01 Neut # (Auto) 11.20 K/uL (1.4-6.5) H 12/12/21 03:01 Lymph # (Auto) 0.72 K/uL (1.2-3.4) L 12/12/21 03:01 [place] # (Auto) 0.89 K/uL (0.24-0.82) H 12/12/21 03:01 Eos # (Auto) 0.12 K/uL (0-0.50) 12/12/21 03:01 Baso # (Auto) 0.02 K/uL (0-0.2) 12/12/21 03:01 Immature Gran # (Auto) 0.04 K/uL (0.00-0.02) H 12/12/21 03:01 PT 33.5 Seconds (9.0-12.0) H 12/12/21 03:46 INR 3.4 (0.9-1.1) H 12/12/21 03:46 APTT 42.2 Seconds (21.0-31.0) H 12/12/21 03:46 PTT Ratio 1.5 12/12/21 03:46 Sodium 133 mmol/L (136-145) L 12/12/21 03:01 Potassium 4.0 mmol/L (3.5-5.1) 12/12/21 03:01 Chloride 98 mmol/L (98-107) 12/12/21 03:01 Carbon Dioxide 27 mmol/L (21-32) 12/12/21 03:01 Anion Gap 8 (3-11) 12/12/21 03:01 BUN 12 mg/dl (6-23) 12/12/21 03:01 Creatinine 0.59 mg/dl (0.6-1.2) L 12/12/21 03:01 Est Cr Clr Drug Dosing Not Reportable 12/12/21 03:01 Est GFR ( Amer) 96.9 ml/min 12/12/21 03:01 Est GFR (Non-Af Amer) 83.6 ml/min 12/12/21 03:01 BUN/Creatinine Ratio 20.3 (10-20) H 12/12/21 03:01 Glucose 125 mg/dl (70-99(Fasting)) H 12/12/21 03:01 Lactate 0.8 mmol/L (0.4-2.0) 12/12/21 03:01 Calcium 9.1 mg/dl (8.5-10.1) 12/12/21 03:01 Magnesium 1.7 mg/dl (1.7-2.4) 12/12/21 03:01 Total Bilirubin 2.4 mg/dl (0.2-1.0) H 12/12/21 03:01 AST 22 U/L (13-39) 12/12/21 03:01 ALT 14 U/L (7-52) 12/12/21 03:01 Alkaline Phosphatase 39 U/L (34-104) 12/12/21 03:01 Troponin I High Sens 6.1 pg/ml (0-14) 12/12/21 03:01 Total Protein 6.5 gm/dl (6.0-8.3) 12/12/21 03:01 Albumin 3.8 gm/dl (3.4-5.0) 12/12/21 03:01 Globulin 2.7 gm/dl (2.5-4.0) 12/12/21 03:01 Albumin/Globulin Ratio 1.4 (0.9-2) 12/12/21 03:01 Urine Color Yellow 12/12/21 04:00 Urine Appearance Clear (Clear) 12/12/21 04:00 Urine pH 7.5 (4.5-7.5) 12/12/21 04:00 Ur Specific [place] 1.014 (1.000-1.030) 12/12/21 04:00 Urine Protein Negative (Negative) 12/12/21 04:00 Urine Glucose (UA) Negative (Negative) 12/12/21 04:00 Urine Ketones 1+ (Negative) H 12/12/21 04:00 Urine Blood Negative (Negative) 12/12/21 04:00 Urine Nitrite Negative (Negative) 12/12/21 04:00 Urine Bilirubin Negative (Negative) 12/12/21 04:00 Urine Urobilinogen Negative (Negative) 12/12/21 04:00 Ur Leukocyte Esterase Negative (Negative) 12/12/21 04:00 SARS-CoV-2 (PCR) Cancelled 12/12/21 03:12 SARS-CoV-2, RNA, NAAT POSITIVE (NEGATIVE) A* 12/12/21 03:12 Code Status & VTE Plan Code Status Full code VTE Prophylaxis Plan VTE Prophylaxis will be ordered: Yes PG Care Time/CCT Total # of Minutes Spent Total Time Spent with Patient: Total time spent is greater than 50% in coordination of care (as documented) at patient's floor/unit and/or counseling patient: Coding Level of Care Code INT OBSERVATION CARE 70M LVL 3 Diagnoses Syncope R55 Supratherapeutic INR R79.1 COVID-19 U07.1 S/P total knee arthroplasty Z96.659 Hyperlipidemia E78.5 HTN (hypertension) I10 Hypothyroidism E03.9 Peripheral neuropathy G62.9 Presence of IVC filter Z95.828 Primary cutaneous T-cell lymphoma C84.A0 History of non-Hodgkin's lymphoma Z85.72
[2021-12-12] MEDS ORDERED: traMADol HCL 50 MG TABLET PO PRN (07:21)
[2021-12-12] MEDS ORDERED: ACETAMINOPHEN 325 MG TAB PO PRN (07:21)
[2021-12-12] MEDS ORDERED: ONDANSETRON INJ 2 MG/ML 2 ML VIAL IV PRN (07:21)
[2021-12-12] MEDS ORDERED: ONDANSETRON 4 MG OD TAB PO PRN (07:41)
[2021-12-12] MEDS ORDERED: LACTATED RINGER'S 1,000 ML IV SCH (08:00)
--- NOTE | 2021-12-12 08:21 | CT Scan Report ---
HEAD CT NONCONTRAST CT DOSE: 935.80 mGy.cm HISTORY: syncope, on coumadin TECHNIQUE: Multiaxial CT images of the head were performed without the use of intravenous contrast. A utomated exposure control was utilized for this study. A dose lowering technique was utilized adheri ng to the principles of ALARA. Comparison: Head CT 07/21/2021. Findings: The paranasal sinuses and mastoid air cells are clear. The calvarium and skull base are int act. There is no mass, hematoma, midline shift, acute infarct. White matter hypodensity is nonspecifi c but suggestive of microvascular ischemic change. The ventricles and sulci demonstrate mild age-rela betty involutional changes. Postoperative changes again noted at the left high convexity of the calvari um. Impression: No significant change compared to the prior study. No acute intracranial abnormality. ACT 112: Negative or not required by law. Electronically signed by: Tim Velazquez M.D. 12/12/2021 8:20 AM
--- NOTE | 2021-12-12 08:29 | CT Scan Report ---
CERVICAL SPINE CT CT DOSE: HISTORY: Nausea. syncope, on coumadin TECHNIQUE: Multiaxial CT images of the cervical spine were performed and reformatted in the sagittal and coronal plane without the use of contrast. A dose lowering technique was utilized adhering to th e principles of ALARA. COMPARISON: Cervical spine CT 07/21/2021. FINDINGS: No acute fracture or subluxation within the cervical spine. Old mild anterior wedge-shaped compression deformities from C7 through T2. Moderate degenerative disc disease at C5-C6. Calcified di sc protrusions again noted within the C3-C6 levels. IMPRESSION: No acute fractures within the cervical spine. ACT 112: Negative or not required by law. Electronically signed by: Tim Velazquez M.D. 12/12/2021 8:26 AM
--- NOTE | 2021-12-12 08:47 | XRay Report ---
XR chest 1V portable HISTORY: SEPSIS COMPARISON: Chest 11/02/2021. FINDINGS: The cardiac silhouette remains mildly enlarged. Suspect trace bilateral pleural effusions. Mitral annulus calcifications are again noted. No new focal lung consolidations to suggest pneumonia. No evidence for pulmonary edema. No pneumothorax. IMPRESSION: 1. No focal lung consolidations to suggest pneumonia. 2. Stable cardiomegaly. 3. Trace bilateral pleural effusions. ACT 112: Negative or not required by law. Electronically signed by: Tim Velazquez M.D. 12/12/2021 8:45 AM
[2021-12-12] MEDS ORDERED: ASPIRIN 81 MG ECTAB PO ONE (09:00)
[2021-12-12] MEDS: ACETAMINOPHEN 500 MG TAB PO SCH ×3 (09:19→20:24)
[2021-12-12] MEDS: NITROGLYCERIN 0.2 MG/HR PATCH TD SCH (09:20)
[2021-12-12] MEDS: guaiFENesin 600 MG TABCR PO SCH ×2 (09:20→20:24)
[2021-12-12] MEDS: ZINC SULFATE 220 MG CAPSULE PO SCH (09:20)
[2021-12-12] MEDS: carvediloL 3.125 MG TAB PO SCH ×2 (09:21→20:24)
[2021-12-12] MEDS: dexAMETHasone 4 MG TAB PO SCH (09:21)
[2021-12-12] MEDS: CHOLECALCIFEROL 5,000 UNITS 125 MCG TAB PO SCH (09:21)
[2021-12-12] MEDS: DOCUSATE SODIUM/SENNA 50/8.6MG TAB PO SCH (09:29)
--- NOTE | 2021-12-12 11:58 | Electrocardiogram Report ---
Test Reason : Blood Pressure : / mmHG Vent. Rate : 093 BPM Atrial Rate : 093 BPM P-R Int : 186 ms QRS Dur : 130 ms QT Int : 374 ms P-R-T Axes : 039 -17 -18 degrees QTc Int : 465 ms Poor data quality, interpretation may be adversely affected Normal sinus rhythm Possible Left atrial enlargement Right bundle branch block Abnormal ECG When compared with ECG of 02-NOV-2021 11:30, T wave inversion now evident in Inferior leads Confirmed by Marko Gagnon ([id number]) on 12/12/2021 11:57:33 AM Referred By: REFERRED SELF Confirmed By:Marko Gagnon
[2021-12-12 12:14] LABS: INR 3.3 (0.9-1.1); Prothrombin Time 32.9 Seconds (9.0-12.0)
[2021-12-12] MEDS: CALCIUM 600MG + VIT D 400 IU TAB PO SCH (12:22)
[2021-12-12] MEDS: MULTIVITAMIN TAB PO SCH (12:22)
[2021-12-12] MEDS: ATORVASTATIN 40 MG TAB PO SCH (20:24)
[2021-12-12] MEDS: LEVOTHYROXINE SODIUM 100 MCG TABLET PO SCH (20:24)
[2021-12-13 06:16] LABS: Basophils # (auto) 0.01 K/uL (0-0.2); Basophils % (auto) 0.1 %; Hematocrit (blood only) 34.9 % (34.1-44.9); Hemoglobin 11.7 g/dl (12.0-16.0); Immature Granulocytes # (auto) 0.04 K/uL (0.00-0.02); Immature Granulocytes % (auto) 0.4 %; Lymphocytes # (auto) 0.92 K/uL (1.2-3.4); Lymphocytes % (auto) 8.4 %; Mean Corpuscular Hemoglobin 30.8 pg (25.0-34.0); Mean Corpuscular Hgb Conc 33.5 g/dL (32.0-36.0); Mean Corpuscular Volume 91.8 fL (80.0-100.0); Mean Platelet Volume 9.2 fL (9.4-12.3); Neutrophils % (auto) 81.1 %; Platelet Count 230 K/uL (130-400); RDW Coefficient of Variation 13.2 % (11.5-14.5); RDW Standard Deviation 44.2 fL (36.4-46.3); White Blood Count 10.97 K/ul (4.8-10.8)
[2021-12-13 06:39] LABS: Albumin Level 3.3 gm/dl (3.4-5.0); Calcium 8.6 mg/dl (8.5-10.1); Est GFR (African American) 102.3 ml/min; Est GFR (Non-African American) 88.3 ml/min; Phosphorus 2.7 mg/dl (2.5-4.9); Potassium 4.1 mmol/L (3.5-5.1)
[2021-12-13 06:47] LABS: INR 3.3 (0.9-1.1); Prothrombin Time 33.3 Seconds (9.0-12.0)
--- NOTE | 2021-12-13 08:03 | Hospitalist Progress Note ---
Date of Service December 13, 2021 Assessment & Plan (1) Syncope: Plan: Syncope, micturition- attempting to void at home following LEFT TKA on 12/[address] Alvarez Possible element of generalized weakness from otherwise asymptomatic COVID infection No further syncope reported, check orthostatics for completeness -Does have hx CAD, chronic known unrevascularized distal RCA disease, small distal circumflex disease. Also hx PE s/p IVC filter placed in setting of subdural hematoma on coumadin -CT head NEGATIVE -CT cervical spine without acute process -CXR without consolidative process, trace b/l pleural effusions -UA without evidence for infection Check ECHO for completeness Procalcitonin negative WBC decreased, afebrile PT/OT consulted -- ?possible need for rehab (2) COVID-19: Plan: Overall asymptomatic, may be an element of generalized fatigue, but only minimal head neck congestion reported with cough Dexamethasone 4 mg p.o. every morning -- increased to 6mg for AM as was 100% earlier today, currently 94% Continue Vitamin D, Mucinex, Zinc Discussed with son, Akanksha, who inquired about Paxlovid, patient agreeable. Sent rx for such and family delivered. Planning to complete 5 day course Coumadin currently on hold while on paxlovid in patient with supratherapeutic INR, touched base with [facility] and can have HH check and they can monitor in acute period. Added incentive spirometer Supplemental O2 if needed but has been saturating well on room air (3) Supratherapeutic INR: Plan: INR 3.4 on admission, coumadin placed on hold INR 3.3 on repeat but continuing to hold given starting paxlovid 12/13 as above and monitor INR in AM and plan for HH to check moving forward (4) S/P total knee arthroplasty: Plan: Consult PT/OT while patient is in hospital (5) Hyperlipidemia: Plan: Continue atorvastatin 40 mg every evening (6) HTN (hypertension): Plan: Continue aspirin, carvedilol, nitroglycerin transdermal patch. 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 I agree w/ the gordon components of her documentation. Loki Silva MD Subjective Patient evaluated this afternoon. Had syncopal episode on the toilet at home and felt weak [employer]. Cough started around Monday, productive of mucus on Monday. Temp around 99F when she typically runs around 97F. Feeling alright currently. Decreased taste at baseline but no acute worsening. No chest pain or shortness of breath. Evaluated by therapy with recs for home and patient hopeful for d/c tomorrow if possible. Just started her paxlovid and discussed coumadin, patient with appt on and follows with [facility]. Will reach back out tomorrow for plans for her coumadin while on paxlovid. No abdominal pain, nausea or vomiting. Pain to knee well controlled. Review of Systems Review of Systems: All systems reviewed & are unremarkable except as noted in HPI & below Physical Exam Physical Exam: General: WN/WD female sitting up in bed, NAD HEENT; head normocephalic, atraumatic, mmm, trachea midline without deviation Resp: CTAB, diminished in the bases, no wheezing/rales, 94% on RA CV: RRR, +murmur, no rub/gallop, no calf tenderness GI: +BS, soft, nontender : no edmondson MSK/Neuro: moves all extremities, no focal deficit, LEFT knee dressing c/d/i, trace swelling, NVI, toes mobile and pulses palpable Skin: warm, dry Psych: AOx3, pleasant and cooperative Results & Data Results & Data ([facility]) Vital Signs (Past 12 Hours) Vital Signs Temp Pulse Resp BP Pulse Ox 12/13/21 03:00 37.1 C 65 18 128/66 96 12/12/21 23:00 37.0 C 71 18 120/65 95 Laboratory Results 12/13/21 12/13/21 12/13/21 Range/Units 05:35 05:35 05:35 WBC 10.97 H (4.8-10.8) K/ul RBC 3.80 L (3.93-5.22) M/uL Hgb 11.7 L (12.0-16.0) g/dl Hct 34.9 (34.1-44.9) % MCV 91.8 (80.0-100.0) fL MCH 30.8 (25.0-34.0) pg MCHC 33.5 (32.0-36.0) g/dL RDW Std Deviation 44.2 (36.4-46.3) fL RDW Coeff of Jhonathan 13.2 (11.5-14.5) % Plt Count 230 (130-400) K/uL MPV 9.2 L (9.4-12.3) fL Immature Gran % (Auto) 0.4 % Neut % (Auto) 81.1 % Lymph % (Auto) 8.4 % [place] % (Auto) 10.0 % Eos % (Auto) 0.0 % Baso % (Auto) 0.1 % Neut # (Auto) 8.90 H (1.4-6.5) K/uL Lymph # (Auto) 0.92 L (1.2-3.4) K/uL [place] # (Auto) 1.10 H (0.24-0.82) K/uL Eos # (Auto) 0.00 (0-0.50) K/uL Baso # (Auto) 0.01 (0-0.2) K/uL Immature Gran # (Auto) 0.04 H (0.00-0.02) K/uL PT 33.3 H (9.0-12.0) Seconds INR 3.3 H (0.9-1.1) Sodium 134 L (136-145) mmol/L Potassium 4.1 (3.5-5.1) mmol/L Chloride 102 (98-107) mmol/L Carbon Dioxide 26 (21-32) mmol/L Anion Gap 6 (3-11) BUN 15 (6-23) mg/dl Creatinine 0.50 L (0.6-1.2) mg/dl Est Cr Clr Drug Dosing 74.0 ml/min Est GFR ( Amer) 102.3 ml/min Est GFR (Non-Af Amer) 88.3 ml/min BUN/Creatinine Ratio 30.0 H (10-20) Glucose 111 H (70-99(Fasting)) mg/dl Calcium 8.6 (8.5-10.1) mg/dl Phosphorus 2.7 (2.5-4.9) mg/dl Albumin 3.3 L (3.4-5.0) gm/dl 12/12/21 Range/Units 11:54 WBC (4.8-10.8) K/ul RBC (3.93-5.22) M/uL Hgb (12.0-16.0) g/dl Hct (34.1-44.9) % MCV (80.0-100.0) fL MCH (25.0-34.0) pg MCHC (32.0-36.0) g/dL RDW Std Deviation (36.4-46.3) fL RDW Coeff of Jhonathan (11.5-14.5) % Plt Count (130-400) K/uL MPV (9.4-12.3) fL Immature Gran % (Auto) % Neut % (Auto) % Lymph % (Auto) % [place] % (Auto) % Eos % (Auto) % Baso % (Auto) % Neut # (Auto) (1.4-6.5) K/uL Lymph # (Auto) (1.2-3.4) K/uL [place] # (Auto) (0.24-0.82) K/uL Eos # (Auto) (0-0.50) K/uL Baso # (Auto) (0-0.2) K/uL Immature Gran # (Auto) (0.00-0.02) K/uL PT 32.9 H (9.0-12.0) Seconds INR 3.3 H (0.9-1.1) Sodium (136-145) mmol/L Potassium (3.5-5.1) mmol/L Chloride (98-107) mmol/L Carbon Dioxide (21-32) mmol/L Anion Gap (3-11) BUN (6-23) mg/dl Creatinine (0.6-1.2) mg/dl Est Cr Clr Drug Dosing ml/min Est GFR ( Amer) ml/min Est GFR (Non-Af Amer) ml/min BUN/Creatinine Ratio (10-20) Glucose (70-99(Fasting)) mg/dl Calcium (8.5-10.1) mg/dl Phosphorus (2.5-4.9) mg/dl Albumin (3.4-5.0) gm/dl Diagnostic Findings Chest X-Ray 12/12/21 02:46 XR chest 1V portable HISTORY: SEPSIS COMPARISON: Chest 11/02/2021. FINDINGS: The cardiac silhouette remains mildly enlarged. Suspect trace bilateral pleural effusions. Mitral annulus calcifications are again noted. No new focal lung consolidations to suggest pneumonia. No evidence for pulmonary edema. No pneumothorax. IMPRESSION: 1. No focal lung consolidations to suggest pneumonia. 2. Stable cardiomegaly. 3. Trace bilateral pleural effusions. ACT 112: Negative or not required by law. Electronically signed by: Tim Velazquez M.D. 12/12/2021 8:[address] 12/12/21 02:[address] DOSE: HISTORY: Nausea. syncope, on coumadin TECHNIQUE: Multiaxial CT images of the cervical spine were performed and reformatted in the sagittal and coronal plane without the use of contrast. A dose lowering technique was utilized adhering to the principles of ALARA. COMPARISON: Cervical spine CT 07/21/2021. FINDINGS: No acute fracture or subluxation within the cervical spine. Old mild anterior wedge-shaped compression deformities from C7 through T2. Moderate d egenerative disc disease at C5-C6. Calcified disc protrusions again noted within the C3-C6 levels. IMPRESSION: No acute fractures within the cervical spine. ACT 112: Negative or not required by law. Electronically signed by: Tim Velazquez M.D. 12/12/2021 8:[address] 12/12/21 02:[address] DOSE: 935.80 mGy.cm HISTORY: syncope, on coumadin TECHNIQUE: Multiaxial CT images of the head were performed without the use of intravenous contrast. Automated exposure control was utilized for this study. A dose lowering technique was utilized adhering to the principles of ALARA. Comparison: Head CT 07/21/2021. Findings: The paranasal sinuses and mastoid air cells are clear. The calvarium and skull base are intact. There is no mass, hematoma, midline shift, acute infarct. White matter hypodensity is nonspecific but suggestive of microvascular ischemic change. The ventricles and sulci demonstrate mild age-related involutional changes. Postoperative changes again noted at the left high convexity of the calvarium. Impression: No significant change compared to the prior study. No acute intracranial abnormality. ACT 112: Negative or not required by law. Electronically signed by: Tim Velazquez M.D. 12/12/2021 8:20 AM PG Care Time/CCT Total # of Minutes Spent Total Time Spent with Patient: Total time spent is greater than 50% in coordination of care (as documented) at patient's floor/unit and/or counseling patient: Coding Level of Care Code 60844 Subseq Obs Care Lvl 3 Diagnoses Syncope R55 COVID-19 U07.1 Supratherapeutic INR R79.1 S/P total knee arthroplasty Z96.659 Hyperlipidemia E78.5 HTN (hypertension) I10 Hypothyroidism E03.9 Peripheral neuropathy G62.9 Presence of IVC filter Z95.828 Primary cutaneous T-cell lymphoma C84.A0 History of non-Hodgkin's lymphoma Z85.72
[2021-12-13] MEDS: NITROGLYCERIN 0.2 MG/HR PATCH TD SCH (08:56)
[2021-12-13] MEDS: guaiFENesin 600 MG TABCR PO SCH ×2 (08:56→20:57)
[2021-12-13] MEDS: ACETAMINOPHEN 500 MG TAB PO SCH ×3 (08:56→21:11)
[2021-12-13] MEDS: CHOLECALCIFEROL 5,000 UNITS 125 MCG TAB PO SCH (08:56)
[2021-12-13] MEDS: dexAMETHasone 4 MG TAB PO SCH (08:56)
[2021-12-13] MEDS: carvediloL 3.125 MG TAB PO SCH ×2 (08:56→20:58)
[2021-12-13] MEDS: DOCUSATE SODIUM/SENNA 50/8.6MG TAB PO SCH (08:56)
[2021-12-13] MEDS: ZINC SULFATE 220 MG CAPSULE PO SCH (08:57)
[2021-12-13] MEDS ORDERED: ASPIRIN 81 MG ECTAB PO SCH (09:00)
[2021-12-13] MEDS ORDERED: ALBUTEROL HFA 8 GM INHALER INH PRN (09:24)
[2021-12-13 09:53] LABS: C Reactive Protein 4.02 mg/dl (0-0.5); Magnesium 1.9 mg/dl (1.7-2.4)
[2021-12-13] MEDS: ALBUTEROL HFA 8 GM INHALER INH SCH ×2 (10:20→19:50)
[2021-12-13] MEDS: MULTIVITAMIN TAB PO SCH (13:18)
[2021-12-13] MEDS: CALCIUM 600MG + VIT D 400 IU TAB PO SCH (13:18)
--- NOTE | 2021-12-13 15:09 | Progress Notes ---
DATE OF SERVICE: 12/13/2021. SUBJECTIVE: An 86-year-old female now postop day #6 from a left total knee replacement. She has don e pretty well, but apparently had a syncopal episode at home and readmitted now with a diagnosis of C OVID. She is doing much better. She feels well. Pain is controlled. No chest pain or shortness of breath. She is feeling quite a bit better. OBJECTIVE: VITAL SIGNS: Temperature 36.8. Vital signs are stable. PHYSICAL EXAMINATION: GENERAL: Shows a pleasant, elderly female, sitting up in bed, looks comfortable. She was talking on the phone when I went in the room today. EXTREMITIES: Examination of the left knee reveals dressing to be clean, dry and intact. Fairly mild swelling. She can dorsiflex and plantarflex her foot appropriately. She is neurologically intact. LABORATORY DATA: Hemoglobin is 11.7. Hematocrit 34.9. Electrolytes are stable. ASSESSMENT: An 86-year-old female, now 6 days out from a total knee replacement, admitted with COVID . She had a hypotensive episode and a syncopal episode. She seems to be doing quite well now. PLAN: From the orthopedic standpoint, she is on Coumadin. She has got an IVC filter in place. Her Coumadin is supratherapeutic which is appropriate. Continue therapy and mobilize. Ayana and JOSELUIS Hernandez for additional DVT prophylaxis. Medical management as per the medicine service. Any orthopedic q uestions can be directed to [phone]. Job ID: [id number]
[2021-12-13] MEDS: NIRMATRELVIR/RITONAVIR 1 EA TAB PO SCH ×2 (15:26→20:56)
[2021-12-13] MEDS ORDERED: WARFARIN SOD 5 MG TAB PO SCH (16:00)
[2021-12-13] MEDS: LEVOTHYROXINE SODIUM 100 MCG TABLET PO SCH (20:56)
[2021-12-13] MEDS: ATORVASTATIN 40 MG TAB PO SCH (20:59)
[2021-12-14] MEDS ORDERED: ALBUTEROL HFA 8 GM INHALER INH PRN (01:20)
[2021-12-14 07:28] LABS: Basophils # (auto) 0.01 K/uL (0-0.2); Basophils % (auto) 0.1 %; Hematocrit (blood only) 37.1 % (34.1-44.9); Hemoglobin 12.3 g/dl (12.0-16.0); Immature Granulocytes # (auto) 0.07 K/uL (0.00-0.02); Immature Granulocytes % (auto) 0.7 %; Lymphocytes # (auto) 1.05 K/uL (1.2-3.4); Lymphocytes % (auto) 9.9 %; Mean Corpuscular Hemoglobin 30.7 pg (25.0-34.0); Mean Corpuscular Hgb Conc 33.2 g/dL (32.0-36.0); Mean Corpuscular Volume 92.5 fL (80.0-100.0); Mean Platelet Volume 9.1 fL (9.4-12.3); Monocytes # (auto) 0.62 K/uL (0.24-0.82); Monocytes % (auto) 5.8 %; Neutrophils # (auto) 8.88 K/uL (1.4-6.5); Neutrophils % (auto) 83.5 %; Platelet Count 290 K/uL (130-400); RDW Coefficient of Variation 13.2 % (11.5-14.5); RDW Standard Deviation 44.4 fL (36.4-46.3); Red Blood Count 4.01 M/uL (3.93-5.22); White Blood Count 10.63 K/ul (4.8-10.8)
[2021-12-14 07:53] LABS: Albumin Level 3.8 gm/dl (3.4-5.0); BUN Creatinine Ratio 30.2 (10-20); Calcium 9.1 mg/dl (8.5-10.1); Creatinine Clr Calc Pharmacy 69.8 ml/min; Est GFR (African American) 100.3 ml/min; Est GFR (Non-African American) 86.6 ml/min; Magnesium 1.9 mg/dl (1.7-2.4); Phosphorus 2.7 mg/dl (2.5-4.9); Potassium 3.9 mmol/L (3.5-5.1)
[2021-12-14 07:54] LABS: INR 2.6 (0.9-1.1); Prothrombin Time 26.6 Seconds (9.0-12.0)
--- NOTE | 2021-12-14 08:07 | Hospitalist Progress Note ---
Date of Service December 14, 2021 Assessment & Plan (1) Syncope: Plan: Syncope, micturition- attempting to void at home following LEFT TKA on 12/[address] Alvarez Possible element of generalized weakness from otherwise asymptomatic COVID infection No further syncope reported, check orthostatics for completeness -Does have hx CAD, chronic known unrevascularized distal RCA disease, small distal circumflex disease. Also hx PE s/p IVC filter placed in setting of subdural hematoma on coumadin -CT head NEGATIVE -CT cervical spine without acute process -CXR without consolidative process, trace b/l pleural effusions -UA without evidence for infection Check ECHO for completeness Procalcitonin negative WBC decreased, afebrile PT/OT consulted -- ?possible need for rehab (2) COVID-19: Plan: Overall asymptomatic, may be an element of generalized fatigue, but only minimal head neck congestion reported with cough Dexamethasone 4 mg p.o. every morning -- increased to 6mg for AM as was 100% earlier today, currently 94% Continue Vitamin D, Mucinex, Zinc Discussed with son, Akanksha, who inquired about Paxlovid, patient agreeable. Sent rx for such and family delivered. Planning to complete 5 day course Coumadin currently on hold while on paxlovid in patient with supratherapeutic INR, touched base with [facility] and can have HH check and they can monitor in acute period. Added incentive spirometer Supplemental O2 if needed but has been saturating well on room air (3) Supratherapeutic INR: Plan: INR 3.4 on admission, coumadin placed on hold INR 3.3 on repeat but continuing to hold given starting paxlovid 12/13 as above and monitor INR in AM and plan for HH to check moving forward (4) S/P total knee arthroplasty: Plan: Consult PT/OT while patient is in hospital (5) Hyperlipidemia: Plan: Continue atorvastatin 40 mg every evening (6) HTN (hypertension): Plan: Continue aspirin, carvedilol, nitroglycerin transdermal patch. 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: (11) History of non-Hodgkin's lymphoma: Admission and Anticipated Discharge Date Admission Date: December 12, 2021 Results & Data Results & Data ([facility]) Vital Signs (Past 12 Hours) Vital Signs Temp Pulse Pulse Resp BP Pulse Ox 12/14/21 03:32 37.0 C 71 20 147/92 H 97 12/13/21 23:44 67 12/13/21 23:18 36.8 C 82 16 138/72 96 Laboratory Results 12/14/21 12/14/21 12/14/21 Range/Units 07:01 07:01 07:01 WBC (4.8-10.8) K/ul RBC (3.93-5.22) M/uL Hgb (12.0-16.0) g/dl Hct (34.1-44.9) % MCV (80.0-100.0) fL MCH (25.0-34.0) pg MCHC (32.0-36.0) g/dL RDW Std Deviation (36.4-46.3) fL RDW Coeff of Jhonathan (11.5-14.5) % Plt Count (130-400) K/uL MPV (9.4-12.3) fL Immature Gran % (Auto) % Neut % (Auto) % Lymph % (Auto) % [place] % (Auto) % Eos % (Auto) % Baso % (Auto) % Neut # (Auto) (1.4-6.5) K/uL Lymph # (Auto) (1.2-3.4) K/uL [place] # (Auto) (0.24-0.82) K/uL Eos # (Auto) (0-0.50) K/uL Baso # (Auto) (0-0.2) K/uL Immature Gran # (Auto) (0.00-0.02) K/uL PT 26.6 H (9.0-12.0) Seconds INR 2.6 H (0.9-1.1) Sodium 133 L (136-145) mmol/L Potassium 3.9 (3.5-5.1) mmol/L Chloride 100 (98-107) mmol/L Carbon Dioxide 27 (21-32) mmol/L Anion Gap 6 (3-11) BUN 16 (6-23) mg/dl Creatinine 0.53 L (0.6-1.2) mg/dl Est Cr Clr Drug Dosing 69.8 ml/min Est GFR ( Amer) 100.3 ml/min Est GFR (Non-Af Amer) 86.6 ml/min BUN/Creatinine Ratio 30.2 H (10-20) Glucose 114 H (70-99(Fasting)) mg/dl Calcium 9.1 (8.5-10.1) mg/dl Phosphorus 2.7 (2.5-4.9) mg/dl Magnesium 1.9 (1.7-2.4) mg/dl C-Reactive Protein (0-0.5) mg/dl Albumin 3.8 (3.4-5.0) gm/dl Vitamin B12 Pending Procalcitonin (0-0.5) ng/ml TSH (0.300-4.500) uIu/ml 12/14/21 12/13/21 12/13/21 Range/Units 07:01 05:44 05:44 WBC 10.63 (4.8-10.8) K/ul RBC 4.01 (3.93-5.22) M/uL Hgb 12.3 (12.0-16.0) g/dl Hct 37.1 (34.1-44.9) % MCV 92.5 (80.0-100.0) fL MCH 30.7 (25.0-34.0) pg MCHC 33.2 (32.0-36.0) g/dL RDW Std Deviation 44.4 (36.4-46.3) fL RDW Coeff of Jhonathan 13.2 (11.5-14.5) % Plt Count 290 (130-400) K/uL MPV 9.1 L (9.4-12.3) fL Immature Gran % (Auto) 0.7 % Neut % (Auto) 83.5 % Lymph % (Auto) 9.9 % [place] % (Auto) 5.8 % Eos % (Auto) 0.0 % Baso % (Auto) 0.1 % Neut # (Auto) 8.88 H (1.4-6.5) K/uL Lymph # (Auto) 1.05 L (1.2-3.4) K/uL [place] # (Auto) 0.62 (0.24-0.82) K/uL Eos # (Auto) 0.00 (0-0.50) K/uL Baso # (Auto) 0.01 (0-0.2) K/uL Immature Gran # (Auto) 0.07 H (0.00-0.02) K/uL PT (9.0-12.0) Seconds INR (0.9-1.1) Sodium (136-145) mmol/L Potassium (3.5-5.1) mmol/L Chloride (98-107) mmol/L Carbon Dioxide (21-32) mmol/L Anion Gap (3-11) BUN (6-23) mg/dl Creatinine (0.6-1.2) mg/dl Est Cr Clr Drug Dosing ml/min Est GFR ( Amer) ml/min Est GFR (Non-Af Amer) ml/min BUN/Creatinine Ratio (10-20) Glucose (70-99(Fasting)) mg/dl Calcium (8.5-10.1) mg/dl Phosphorus (2.5-4.9) mg/dl Magnesium (1.7-2.4) mg/dl C-Reactive Protein (0-0.5) mg/dl Albumin (3.4-5.0) gm/dl Vitamin B12 Procalcitonin < 0.05 (0-0.5) ng/ml TSH 0.813 (0.300-4.500) uIu/ml 12/13/21 Range/Units 05:35 WBC (4.8-10.8) K/ul RBC (3.93-5.22) M/uL Hgb (12.0-16.0) g/dl Hct (34.1-44.9) % MCV (80.0-100.0) fL MCH (25.0-34.0) pg MCHC (32.0-36.0) g/dL RDW Std Deviation (36.4-46.3) fL RDW Coeff of Jhonathan (11.5-14.5) % Plt Count (130-400) K/uL MPV (9.4-12.3) fL Immature Gran % (Auto) % Neut % (Auto) % Lymph % (Auto) % [place] % (Auto) % Eos % (Auto) % Baso % (Auto) % Neut # (Auto) (1.4-6.5) K/uL Lymph # (Auto) (1.2-3.4) K/uL [place] # (Auto) (0.24-0.82) K/uL Eos # (Auto) (0-0.50) K/uL Baso # (Auto) (0-0.2) K/uL Immature Gran # (Auto) (0.00-0.02) K/uL PT (9.0-12.0) Seconds INR (0.9-1.1) Sodium (136-145) mmol/L Potassium (3.5-5.1) mmol/L Chloride (98-107) mmol/L Carbon Dioxide (21-32) mmol/L Anion Gap (3-11) BUN (6-23) mg/dl Creatinine (0.6-1.2) mg/dl Est Cr Clr Drug Dosing ml/min Est GFR ( Amer) ml/min Est GFR (Non-Af Amer) ml/min BUN/Creatinine Ratio (10-20) Glucose (70-99(Fasting)) mg/dl Calcium (8.5-10.1) mg/dl Phosphorus (2.5-4.9) mg/dl Magnesium 1.9 (1.7-2.4) mg/dl C-Reactive Protein 4.02 H (0-0.5) mg/dl Albumin (3.4-5.0) gm/dl Vitamin B12 Procalcitonin (0-0.5) ng/ml TSH (0.300-4.500) uIu/ml PG Care Time/CCT Total # of Minutes Spent Total Time Spent with Patient: Total time spent is greater than 50% in coordination of care (as documented) at patient's floor/unit and/or counseling patient: Coding Diagnoses Syncope R55 COVID-19 U07.1 Supratherapeutic INR R79.1 S/P total knee arthroplasty Z96.659 Hyperlipidemia E78.5 HTN (hypertension) I10 Hypothyroidism E03.9 Peripheral neuropathy G62.9 Presence of IVC filter Z95.828 Primary cutaneous T-cell lymphoma C84.A0 History of non-Hodgkin's lymphoma Z85.72
[2021-12-14] MEDS: carvediloL 3.125 MG TAB PO SCH (08:42)
[2021-12-14] MEDS: ZINC SULFATE 220 MG CAPSULE PO SCH (08:42)
[2021-12-14] MEDS: CHOLECALCIFEROL 5,000 UNITS 125 MCG TAB PO SCH (08:42)
[2021-12-14] MEDS: guaiFENesin 600 MG TABCR PO SCH (08:43)
[2021-12-14] MEDS: NIRMATRELVIR/RITONAVIR 1 EA TAB PO SCH (08:44)
[2021-12-14] MEDS: NITROGLYCERIN 0.2 MG/HR PATCH TD SCH (08:45)
[2021-12-14] MEDS: ACETAMINOPHEN 500 MG TAB PO SCH ×2 (08:47→14:00)
[2021-12-14] MEDS: DOCUSATE SODIUM/SENNA 50/8.6MG TAB PO SCH (08:47)
[2021-12-14] MEDS ORDERED: dexAMETHasone 4 MG TAB PO SCH (09:00)
[2021-12-14] MEDS: MULTIVITAMIN TAB PO SCH (11:03)
[2021-12-14] MEDS: CALCIUM 600MG + VIT D 400 IU TAB PO SCH (11:03)
--- NOTE | 2021-12-14 12:58 | XCELERA ---
[id number]
--- NOTE | 2021-12-14 13:49 | Discharge Summary ---
Date of Service December 14, 2021 Admission HPI Per Admitting Provider The patient is a 86-year-old female with a past medical history including thoracic spinal stenosis, primary hypercoagulable state, vitamin D deficiency, RBBB, atrial septal aneurysm, abdominal aortic aneurysm, lumbar spinal stenosis, UTI, C. difficile colitis, TIA, chronic anticoagulation with warfarin, hyperlipidemia, hypertension, hypothyroidism, peripheral neuropathy, presence of IVC filter, and primary cutaneous T-cell lymphoma. She underwent an uneventful left total knee arthroplasty by Dr. Alvarez during hospitalization from 12/07- 12/08/2021. She was at home with family, who have been taking care of her, and reports that she had been doing well until she got up to urinate in the middle the night this evening, and passed out while on the commode. She did not hit her head and she has no other complaints of bodily injury. Significant abnormal laboratories: WBC 12.99, hemoglobin 12.6, hematocrit 36.7, sodium 133, INR 3.4, glucose 125, total bilirubin 2.4. Patient is COVID-19 positive. Her main symptom that she complains about is that of feeling generally weak. Admission Exam Per Admitting Provider The patient is awake, alert and oriented 3, well developed and well nourished, normocephalic and atraumatic, lying in bed and in no acute distress. HEENT--PERRL, EOMI, mucous membranes and oropharynx normal. Neck--supple. No JVD. No bruits. Thyroid normal, trachea midline, no adenopathy. Heart--normal S1 and S2. No murmurs, rubs or gallops. Lungs--clear bilaterally, no respiratory distress, no accessory muscle use. Abdomen--normal bowel sounds and soft. Nontender. Nondistended, no hernias or masses, no organomegaly. Extremities--no cyanosis or clubbing. No edema. Dermatologic--normal skin turgor, normal color, no abnormal lymph nodes, no rash. Neurologic--cranial nerves II through XII grossly intact. Rheumatologic--limitation postop left knee Psychiatric--normal affect. Principal Diagnosis COVID-19, Syncope Discharge Exam General: WN/WD female sitting up in bed, NAD HEENT; head normocephalic, atraumatic, mmm, trachea midline without deviation Resp: CTAB, diminished in the bases (improved from day prior), no wheezing/rales, 97% on room air CV: RRR, +diastolic murmur, no rub/gallop, no calf tenderness GI: +BS, soft, nontender : no Miranda MSK/Neuro: moves all extremities, no focal deficit, LEFT knee dressing c/d/i, trace swelling, NVI, toes mobile and pulses palpable Skin: warm, dry Psych: AOx3, pleasant and cooperative Discharge Data Allergies Allergy/AdvReac Type Severity Reaction Status Date / Time No Known Drug Allergies Allergy Unknown Unknown Verified 12/12/21 03:10 Consultations 12/12/21 04:01 ED Decision to Admit Stat Ordered Studies Chest X-Ray 12/12/21 02:46 XR chest 1V portable HISTORY: SEPSIS COMPARISON: Chest 11/02/2021. FINDINGS: The cardiac silhouette remains mildly enlarged. Suspect trace bilateral pleural effusions. Mitral annulus calcifications are again noted. No new focal lung consolidations to suggest pneumonia. No evidence for pulmonary edema. No pneumothorax. IMPRESSION: 1. No focal lung consolidations to suggest pneumonia. 2. Stable cardiomegaly. 3. Trace bilateral pleural effusions. ACT 112: Negative or not required by law. Electronically signed by: Tim Velazquez M.D. 12/12/2021 8:[address] 12/12/21 02:[address] DOSE: HISTORY: Nausea. syncope, on coumadin TECHNIQUE: Multiaxial CT images of the cervical spine were performed and reformatted in the sagittal and coronal plane without the use of contrast. A dose lowering technique was utilized adhering to the principles of ALARA. COMPARISON: Cervical spine CT 07/21/2021. FINDINGS: No acute fracture or subluxation within the cervical spine. Old mild anterior wedge-shaped compression deformities from C7 through T2. Moderate degenerative disc disease at C5-C6. Calcified disc protrusions again noted within the C3-C6 levels. IMPRESSION: No acute fractures within the cervical spine. ACT 112: Negative or not required by law. Electronically signed by: Tim Velazquez M.D. 12/12/2021 8:[address] 12/12/21 02:[address] DOSE: 935.80 mGy.cm HISTORY: syncope, on coumadin TECHNIQUE: Multiaxial CT images of the head were performed without the use of intravenous contrast. Automated exposure control was utilized for this study. A dose lowering technique was utilized adhering to the principles of ALARA. Comparison: Head CT 07/21/2021. Findings: The paranasal sinuses and mastoid air cells are clear. The calvarium and skull base are intact. There is no mass, hematoma, midline shift, acute infarct. White matter hypodensity is nonspecific but suggestive of microvascular ischemic change. The ventricles and sulci demonstrate mild age-related involutional changes. Postoperative changes again noted at the left high convexity of the calvarium. Impression: No significant change compared to the prior study. No acute intracranial abnormality. ACT 112: Negative or not required by law. Electronically signed by: Tmi Velazquez M.D. 12/12/2021 8:20 AM 12/14/2021 ECHOCARDIOGRAM Compared with study 05/26/2020, mitral regurgitation appears more severe, otherwise no significant change. LV is normal in structure and function. EF 55- 60%. RV is normal in size and function. There is severe mitral regurgitation. The left atrial size is normal. RVSP is normal. Hospital Course (1) Syncope: Syncope, micturition- attempting to void at home following LEFT TKA on 12/[address] Alvarez and felt lightheaded. Son also reported not eating/drinking as well at home. Possible element of generalized weakness from otherwise asymptomatic COVID-19 infection No further syncope reported, check orthostatics for completeness Does have hx CAD, chronic known unrevascularized distal RCA disease, small distal circumflex disease. Also hx PE s/p IVC filter placed in setting of subdural hematoma on Coumadin -CT head NEGATIVE -CT cervical spine without acute process -CXR without consolidative process, trace b/l pleural effusions -UA without evidence for infection Orthostatics not impressive Procalcitonin negative WBC decreased, afebrile ECHO for completeness given + murmur, but known hx mod MR -- no significant change but does note possible worsening mitral regurgitation -Discussed with Dr Vital and will arrange for outpatient follow up. -Had been normal sinus on monitor with PACs but could consider [facility] outpatient for dysrhythmia, however denied palpitations prior to event PT/OT consulted -- ok for home. Home health resumed. Also to be checking INR given Coumadin on Paxlovid/dexamethasone Tx of COVID as below (2) COVID-19: Overall asymptomatic, may be an element of generalized fatigue, but only minimal head neck congestion reported with cough Dexamethasone 4 mg p.o. every morning -- increased to 6mg for AM given dropped to 94% to ensure adequate dosing and sent rx to complete 10 day course Continued on vit D, mucinex, zinc Discussed with son serge, who is a physician, and inquired about paxlovid Sent rx and patient family dropped off -- to complete 5 day course Did get dose statin prior to and one last evening but instructed to HOLD THIS MEDICATION WHILE ON PAXLOVID Also discussed with son signs of edema/weight gain/congestive changes while on steroids and to alert PCP/go to ER if occurs. Coumadin currently on hold while on paxlovid in patient with supratherapeutic INR on admission --> Discussed with Dr Valdez, can hold again today for INR 2.6 (initial instructions to hold until <2.5) while on paxlovid and dexamethasone and home health to check INR tomorrow and can resume coumadin/adjustments as needed To continue incentive spirometer and sent with albuterol HFA Asked RN to contact ER department if able to provide pulse oximeter for home or family will purchase. Son also believes he has one at home Stable on RA, no shortness of breath, cough much improved TO REMAIN ON QUARANTINE FOR 10 DAYS AFTER ONSET OF SYMPTOMS, ALERTED OF RXNS FOR PAXLOVID AND TO RETURN TO ER IF OCCURS (3) Supratherapeutic INR: INR 3.4 on admission, coumadin placed on hold and remained on hold INR 2.6 prior to dc and holding coumadin for today, resume tomorrow w/ INR check w/ HH in AM (4) S/P total knee arthroplasty: Consulted PT/OT while patient is in hospital -- ok to resume HH at d/c (5) Hyperlipidemia: Continued atorvastatin 40 mg every evening on admission and did get evening 12/13 but to be placed on HOLD while completing course with paxlovid for covid-19 (6) HTN (hypertension): BP stable, continued on carvedilol chronic known unrevascularized distal RCA disease, small distal circumflex disease. Also hx PE s/p IVC filter placed in setting of subdural hematoma on co umadin continued on aspirin, nitropatch, coumadin to resume tomorrow w/ INR check (7) Hypothyroidism: TSH wnl 0.813 Continued levothyroxine 100 mcg daily (8) Peripheral neuropathy: Continued tramadol as needed (9) Presence of IVC filter: as above (10) Primary cutaneous T-cell lymphoma: (11) History of non-Hodgkin's lymphoma: I certify that this patient is under my care and that I, or a physicians podiatry assistant working with me, had a face to-face encounter that meets the home health [id number] encounter requirements with this patient. The encounter with the patient was in whole, or in part, for the following medical condition, which is the primary reason for home health care (list med ical condition): NSG/PT I certify that, based on my findings, the following services are medically necessary home health services: My clinical findings support the need for the above services because: Home Safety Assessment Hydration / Nutrition Medication Compliance and Monitoring Effective of New Medications PT Eval for Safety and Mobility Safety Skilled Nsg Assess Pt Illness, Disease and Sx Monitoring S/S to Report to Provider Teach on Disease Management and Interventions Vital Signs Weekly Labs Further, I certify that my clinical findings support that this patient is homebound (i.e. absences from home require considerable and taxing effort and are for medical reasons or [facility] or infrequently or of short duration when for other reasons) because: Supportive Aid - Walker Certification for Home Health Services: Based on the above findings, I certify that this patient is confined to the home and needs intermittent mcc care, physical therapy and/or speech therapy or continues to need occupational therapy. The patient is under my care, and I have initiated the establishment of the plan of care. This patient will be followed by a physician who will periodically review the plan of care. Plan discharged home with family and home health Total Time Total Time Spent Total Time Spent (In Minutes): 50 Discharge Plan Discharge Items Patient Disposition: Home - Home Health Services Reason For Visit: SYNCOPE Discharge Diagnosis: COVID-19, Syncope Condition on Discharge: Fair Goals: You have been hospitalized for an acute medical problem. During your stay at [facility], we have made an effort to correct the problem that brought you to the hospital while keeping you as comfortable as possible. Medications were used to bring your condition under control and your discharge instructions will include directions for any medications you should take after leaving the hospital. Please make sure you see your Primary Care Provider as part of your follow up plan. Activity: As commented below Non-emergency contact: Primary Care Provider, Surgeon and Wheel Loader Operator Call non-emergency contact if: you have any medication questions, your symptoms worsen, your pain is not controlled and you have a fever Follow-up/Referrals: Jason Spangler MD [Primary Care Provider] - Toy Vital MD [Physician] - Escobar Alvarez MD [Physician] - Diet: Heart Healthy Addtl Attending Provider Instructions: You have been hospitalized for syncope at home while attempting to use the restroom. CT scan of the head was negative for acute stroke. Given the cough/low grade temperature at home, you were found to be positive for COVID-19. Initially you were placed on dexamethasone and you will complete a 10 day course, for another 7 days. You were also placed on antiviral therapy called paxlovid, which will be twice daily for a total five days. You already completed 1 day of treatment while in the hospital. You were also placed on albuterol inhaler twice daily to help with breathing although your lung exam has been clear and you have not required oxygenation. While initially felt to be related to micturition syncope (from needing to void), a murmur on exam which is not a new finding, prompted an echocardiogram. As discussed, this does show some worsening mitral regurgitation. I messaged Dr Vital, as this could be related to your symptoms, but also had to determine not a component of stress from surgery as well as COVID-19 infection. Given symptoms started last Monday, would recommend you quarantine for total 10 days from start of symptoms. Please note, some people do well initially and then decline. You have been evaluated by therapy and determined safe to discharge home. Home health has been arranged. While on the PAXLOVID, you have had your Coumadin held, and this should be resumed tomorrow. Home health should be checking INR and coagulation clinic will be able to make further adjustments. You should also HOLD YOUR ATORVASTATIN while on the PAXLOVID. Please follow up with your PCP in the next 10 days to monitor your progress after discharge. Please return to the emergency department with any increased fever, chills, chest pain, shortness of breath, repeat dizziness, feeling like your throat is closing, inability to keep up with oral fluids, or for any other symptoms concerning for you. Pending Studies at Discharge: Yes Studies:: Blood cultures -- NO GROWTH TO DATE 48 hours Stand-Alone Forms: My [facility] Medications and DC Order Prescriptions: New Paxlovid (EUA) 300 mg (150 mg x 2)-100 mg tablet See Rx Instructions .ROUTE .COMPLEX Qty: 30 0RF Rx Instructions: take TWO 150 mg tablets of nirmatrelvir with ONE 100 mg tablet of ritonavir twice daily for 5 days dexamethasone 4 mg Tablet 6 mg PO DAILY Qty: 7 0RF zinc sulfate [Orazinc] 50 mg zinc (220 mg) Capsule 220 mg PO QAM Qty: 30 0RF guaifenesin [Mucinex] 600 mg Tablet Extended Release 12hr 1,200 mg PO Q12 Qty: 14 0RF albuterol sulfate 90 mcg/actuation HFA aerosol inhaler 2 inh inhalation BID PRN (Reason: shortness of breath or wheezing) Qty: 6.7 0RF Continued Caltrate 600 plus D 600 mg (1,500 mg)-800 unit tablet,chewable 1 tab PO DAILY@1200 aspirin 81 mg tablet,delayed release (DR/EC) 81 mg PO 3XWK alendronate [Fosamax] 70 mg tablet 70 mg PO WK Qty: 12 3RF nitroglycerin 0.2 mg/hr patch 24 hour 1 patch TD Q24H Qty: 90 3RF warfarin 5 mg tablet See Rx Instructions PO UD Qty: 90 3RF Rx Instructions: 2.5mg q Mel[place]/We, 5mg x 5d per [facility] PO use as directed; carvedilol 6.25 mg tablet 3.125 mg PO BID Qty: 90 3RF atorvastatin 40 mg tablet 40 mg PO QPM Qty: 90 3RF Rx Instructions: TAKE 1 TABLET DAILY levothyroxine 100 mcg tablet See Rx Instructions .ROUTE .COMPLEX Qty: 90 3RF Dose Instruction: TAKE 1 TABLET AT BEDTIME Rx Instructions: TAKE 1 TABLET AT BEDTIME tramadol 50 mg tablet 50 - 100 mg PO Q6H PRN (Reason: pain) Qty: 30 0RF Rx Instructions: Take as needed for Pain. ondansetron HCl 4 mg tablet 4 mg PO Q6 PRN (Reason: nausea) Qty: 20 1RF acetaminophen 500 mg capsule 1,000 mg PO TID 30 Days Qty: 180 0RF Rx Instructions: Take 3 times per day to lessen pain. sennosides-docusate sodium [Senokot-S] 8.6-50 mg tablet 1 tab-cap PO DAILY Qty: 14 0RF Rx Instructions: Take daily to prevent constipation multivitamin [Daily Multi-Vitamin] Tablet 1 tab PO DAILY@1200 [facility] Formula 5-1-7.5 mg Capsule 1 cap PO QPM Discharge Orders: Discharge Order (Routine); Ordered 12/14/21 Ordered By: Bharati Rose Admission Data Admit Date/Time: 12/12/21 05:10 Attending Provider: Shae Rivas Admit Provider: Reza Knott Primary Care Provider: Jason Spangler Other Providers: Reza Knott Other Interventions: Discharge Summary Assessment (RN) Last Done: 12/14/21 17:33 Supervising Physician Co-Signing Physician Notes PA Supervision Note: I personally saw and examined the patient. I verified all gordon points and agree with RANDY Rose with the following exceptions and/or additions: S-Pt feeling well, just a mild cough. No other complaints. O- Vitals reviewed Gen: [AAOx3, NAD] HEENT: [anicteric sclerae, EOMI] CV: [RRR 2/6 systolic murmur at base nl S1S2] Pulm: [CTAB no wcr] Abd: [+BS soft NT ND no masses or hernias] Ext: [no edema, 2+ DP pulses] Skin: [no rashes, warm/dry] Neuro: [full strength throughout] A/P-86 yo female here with micturition syncope and COVID-19. Improved, stable for dc to home Coding Level of Care Code 81933 OBS Care - Discharge Diagnoses Syncope R55 COVID-19 U07.1 Supratherapeutic INR R79.1 S/P total knee arthroplasty Z96.659 Hyperlipidemia E78.5 HTN (hypertension) I10 Hypothyroidism E03.9 Peripheral neuropathy G62.9 Presence of IVC filter Z95.828 Primary cutaneous T-cell lymphoma C84.A0 History of non-Hodgkin's lymphoma Z85.72
[2021-12-15] MEDS ORDERED: WARFARIN SOD 2.5 MG TAB PO SCH (16:00)
== END 2021-12-14 18:30 | disposition home health service (06) ==
LOC: ED 02:37 → EDINP 05:10 → OBSVTOIN 05:10 → SUATTDRO 05:10 → INTOOBSV 05:10 → 2E 07:12